=== PATIENT | female | born 1995 | race Caucasian/White ===

== ENCOUNTER 2023-01-04 17:29 | Emergency (ER) | payer OTHER, SELFPAY ==
[2023-01-04 17:41] VITALS: BP 150/109; PULSE 62; RESP 18; TEMP 36.6; O2SAT 100
--- NOTE | 2023-01-04 18:55 | ED.HA ---
HPI - Headache General Chief Complaint: Headache Stated Complaint: Pain to Left Side Face Time Seen by Provider: 01/04/23 18:40 Source: patient, family, RN notes reviewed and old records reviewed Mode of arrival: ambulatory Limitations: no limitations History of Present Illness HPI Narrative: 27-year-old female accompanied by significant other presents to [facility] with complaints of pain to her left side of face,left frontal head, and to her left neck, to her left ear, left eye for the past 2 days. Patient reports history of migraine headaches has never seen Neurology or been on any medications but Tylenol or ibuprofen for her headaches. Patient reports no fevers,some nausea,no vomiting, denies any numbness sensation to her face or neck or any sharp pain to her eye or photophobia. Face is symmetrical with no eye or mouth drooping noted. MD elicited complaint: headache and other (Left ear pain, left neck pain, left facial pain) Pertinent past history: migraines Onset (ago): day(s) (2) Location: left, frontal, facial, neck and other (ear and eye pain) Pain scale (0-10): 5 Quality & Timing: aching and dull Treatments prior to arrival: acetaminophen and ibuprofen Related Data Allergies Allergy/AdvReac Type Severity Reaction Status Date / Time No Known Allergies Allergy Verified 01/04/23 18:10 Review of Systems Review of Systems: CONSTITUTIONAL: Denies fever, chills, or sweats. EYES: Denies visual changes, redness, or discharge.states left eye discomfort ENT: Denies rhinorrhea, congestion,no sore throat, states left ear otalgia, left side of face pain and left neck pain CARDIOVASCULAR: Denies chest pain, palpitations, or edema. RESPIRATORY: Denies cough or dyspnea. GASTROINTESTINAL: Denies abdominal pain,some nausea, no vomiting, or diarrhea. GENITOURINARY: Denies dysuria or hematuria. SKIN: Denies rash or itching. MUSCULOSKELETAL: Denies back pain, joint pain, or myalgia. NEUROLOGIC: reports headache, no numbness, or weakness. PSYCHIATRIC: Denies anxiety or depression. All systems reviewed & are unremarkable except as noted in HPI and below PMFSH Past Medical History Medical History Hx of migraines Strep throat Surgical History Surgical History (Updated 01/05/23 @ 22:59 by Viry Martinez NP) Previous section Social History Social History (Updated 01/05/23 @ 23:00 by Viry Martinez NP) Smoking status: Never smoker Alcohol intake: current Alcohol use details: rare Substance use type: does not use Living arrangements: with family Gender identity (if verbalized by the patient): Female Comments At time of signature, agree with nursing past medical, surgical, social and family history. There is no relevant family history pertinent to the presenting complaint Exam Narrative: GENERAL: Well-appearing, well-nourished, and in no acute distress. HEAD: Normocephalic, atraumatic. EYES: PERRLA and EOMI. reports left eye pain denies any photophobia or sharp pain to her eye. ENT: Nares clear, no rhinorrhea or epistaxis. Mucous membranes moist.TM's normal, throat pink with no lesions or exudates, no acute swelling noted NECK: Supple.pain to left side of neck CHEST: Clear to auscultation. No respiratory distress.SAO2 100% on room air HEART: Regular rate and rhythm. No murmur heard. Normal peripheral pulses. ABDOMEN: Soft, nontender, nondistended, normal active bowel sounds. EXTREMITIES: Normal range of motion. No edema. SKIN: Warm, dry, no rash. NEURO: No focal deficits. Alert and oriented x3.face symmetrical, cranial nerves intact with no deficit noted.gait steady Course Course Emergency Course: Patient is aware of diagnosis, understands and agrees to treatment plan.? Anticipatory guidance given.? Patient agrees to follow-up as directed and is aware of reasons to seek care at the emergency department. Portions of this record may have b
== END 2023-01-04 19:05 | disposition home or self-care (01) ==
PROVIDERS: Emergency Provider Registered Nurse
DX: G43.909 Migraine, unspecified, not intractable, without status migrainosus (principal)
CPT/HCPCS: 87081; 87880; 99213; G0463

== ENCOUNTER 2024-02-04 17:16 | Emergency (ER) | payer SELFPAY ==
[2024-02-04 17:18] VITALS: BP 155/112; PULSE 80; RESP 18; TEMP 36.9; O2SAT 100
--- NOTE | 2024-02-04 18:02 | ED.GENADULT ---
HPI - General Adult General Chief complaint: Unspecified Stated complaint: blood pressure problem History of Present Illness HPI narrative: Patient presents with an elevated blood pressure reading and increased anxiety. Patient states she has no insurance at this time and does not wish to go the emergency room. Patient states she is in the process of getting a new job and hopefully will establish with a PCP when she has insurance. Patient denies any shortness of breath no chest pain no headache at present. No vision problems no signs or symptoms of hypertension. Patient states 1 year ago she had the same symptoms and was diagnosed with migraines but has not followed up with a neurologist. Patient denies any nausea no vomiting. Nontoxic looking patient in the room. Related Data Home Medications ?Medication ?Instructions ?Recorded ?Confirmed ?Last Taken ?Type No Home Medications 02/04/24 02/04/24 Unknown History Allergies Allergy/AdvReac Type Severity Reaction Status Date / Time Penicillins Allergy Severe Rash Verified 02/04/24 17:55 erythromycin base Allergy Unknown Unknown Verified 02/04/24 17:55 Review of Systems Review of Systems: CONSTITUTIONAL: Denies chills, or sweats. Reports fever and generalized body aches EYES: Denies visual changes, redness, or discharge. ENT: Denies otalgia. Reports nasal congestion runny nose and sore throat CARDIOVASCULAR: Denies chest pain, palpitations, or edema. RESPIRATORY: Denies dyspnea. Reports occasional cough GASTROINTESTINAL: Denies abdominal pain, nausea, vomiting, or diarrhea. GENITOURINARY: Denies dysuria or hematuria. SKIN: Denies rash or itching. MUSCULOSKELETAL: Denies back pain, joint pain, or myalgia. Reports generalized body aches NEUROLOGIC: Denies headache, numbness, or weakness. PSYCHIATRIC: Denies anxiety or depression. [facility] Past Medical History Medical History (Updated 02/04/24 @ 18:18 by SHEMAR Clayton) Hx of migraines Strep throat Surgical History Surgical History (Updated 06/26/23 @ 09:05 by Kelli Douglas MA) Previous section xs 2 Social History Social History (Updated 06/26/23 @ 09:05 by Kelli Douglas MA) Smoking status: Never smoker Alcohol intake: current Alcohol use details: rare Substance use: never Substance use type: does not use Do You Feel Safe in your Home?: Yes Lack of Transportation: No Lack of Food: Never True Current Housing: I Have Housing Concerned About Future Housing: No Difficulty Paying Gas/Electric Bills: No Difficulty Paying for Meds: No Currently Unemployed: No Education: High School Diploma/GED Difficulty w/ Childcare or Family Care: No Living arrangements: with family Occupation/Education: occupation Gender identity (if verbalized by the patient): Female Sexual Orientation (if Verbalized by the Patient): Straight or Heterosexual Exam Narrative: GENERAL: Well-appearing, well-nourished, and in no acute distress. HEAD: Normocephalic, atraumatic. EYES: PERRLA and EOMI. ENT: Nares clear, no rhinorrhea or epistaxis. Mucous membranes moist. NECK: Supple. CHEST: Clear to auscultation. No respiratory distress. HEART: Regular rate and rhythm. No murmur heard. Normal peripheral pulses. ABDOMEN: Soft, nontender, nondistended, normal active bowel sounds. EXTREMITIES: Normal range of motion. No edema. SKIN: Warm, dry, no rash. NEURO: No focal deficits. Alert and oriented x3. Normal neuro exam SPEECH IS CLEAR. NO LANGUAGE DEFICITS. CRANIAL NERVES: PUPILS EQUAL, ROUND, AND REACTIVE TO LIGHT. VISUAL MORENO FULL. EXTRA-OCULAR MOVEMENTS INTACT. NO NYSTAGMUS NOTED. FACIAL SENSATION INTACT TO LIGHT TOUCH. FACIAL MOVEMENT FULL AND SYMMETRIC. PALATE MIDLINE. TONGUE MIDLINE, MOVING EQUALLY IN BOTH DIRECTIONS. UVULA IS MIDLINE. SHOULDER SHRUG EQUAL ON BOTH SIDES. BILATERAL HAND GRASP 5/5. GAIT NORMAL. HEEL TO TOE AND TANDEM WALK NORMAL. FINGER TO NOSE NORMAL. NEG ROMBERG. Sandhya Coma Scale Eye Opening: Spontaneous 4 [place] Coma Scale Motor: Obeys Commands 6 [place] Coma Scale Verbal: Oriented 5 Sandhya Coma Scale Total 15 Course Course Level of Care: Express Care Visit Vital Signs Vital signs: Vital Signs Temperature 36.9 C 02/04/24 17:18 Pulse Rate 80 02/04/24 17:18 Respiratory Rate 18 02/04/24 17:18 Blood Pressure 155/112 H 02/04/24 17:18 Pulse Oximetry 100 02/04/24 17:18 Oxygen Delivery Room Air 02/04/24 17:18 Temperature 36.9 C 02/04/24 17:18 Pulse Rate 80 02/04/24 17:18 Respiratory Rate 18 02/04/24 17:18 Blood Pressure 155/112 H 02/04/24 17:18 Pulse Oximetry 100 02/04/24 17:18 Oxygen Delivery Room Air 02/04/24 17:18 Patient declined transfer to emergency room at this visit. will monitor blood pressure at home and will establish with PCP for EVAlUATION OF BLOOD PRESSURE. DR LI SALVAGE ENGINEERING TECHNICIAN PATIENT GIVEN INFORMATION AND INSTRUCTED TO CALL IN AM FOR FOLLOW UP APPOINTMENT. ENFORCED IF ANY NEW OR ANY S/S OF HYPERTENSION OCCUR GO TO EMERGENCY ROOM GOOD. Medical Decision Making Vital Signs Vital Signs: Vital Signs Temperature 36.9 C 02/04/24 17:18 Pulse Rate 80 02/04/24 17:18 Respiratory Rate 18 02/04/24 17:18 Blood Pressure 155/112 H 02/04/24 17:18 Pulse Oximetry 100 02/04/24 17:18 Oxygen Delivery Room Air 02/04/24 17:18 Temperature 36.9 C 02/04/24 17:18 Pulse Rate 80 02/04/24 17:18 Respiratory Rate 18 02/04/24 17:18 Blood Pressure 155/112 H 02/04/24 17:18 Pulse Oximetry 100 02/04/24 17:18 Oxygen Delivery Room Air 02/04/24 17:18 Please GOOD schedule a followup visit with your personal physician for further evaluation and treatment. Including recheck and discussion of your blood pressure. If your symptoms persist, change or worsen significantly before you can contact your personal physician then please, without delay, go to the emergency department for further evaluation Discussed with patient and significant other signs and symptoms to monitor for to keep a blood pressure diary, follow a low salt no added salt diet, reduce stress in life if possible will give list of primary care providers and follow-up with 1 in the next 1-2 days to establish care. Discussed red flags and when to go to ER. Discharge Plan Discharge Clinical Impression: Elevated blood pressure reading, Elevated blood pressure reading in office with diagnosis of hypertension Patient Disposition: Home, Self-Care Condition: Stable Additional Instructions: Keep a blood pressure diary at home Follow-up with primary care provider in the next 1-2 days we will furnish a list of providers taking new patients in the area Follow-up low-sodium low-fat diet If any new or worsening symptoms please go to ER immediately further evaluation treatment Patient Language: Syriac Prescriptions: No Action No Home Medications Follow-up/Referrals: PHYSICIAN,SALVAGE ENGINEERING TECHNICIAN [Primary Care Provider] - Chilango Li MD [Physician] -
--- OUTSIDE RECORDS SUMMARY | 2024-02-09 16:53 | XMS_ITS | Clinical Summary ---
Author Organization [facility] Address [facility] [place] [address] Care Team Providers Care Delphi Programmer Name Role Phone Dario Keenan MD Unavailable [phone] Marc Marin MD Primary Care Provider [phone] Allergies Active Allergy Reactions Criticality Noted Date Comments Amoxicillin Rash Medium 03/13/2020 Azithromycin Rash Medium 03/13/2020 Penicillins Rash Medium 03/13/2020 Medications fluconazole (DIFLUCAN) 150 mg tablet Take 1 tablet PO now and repeat in 3 days. 2 tablet 06/03/2021 Active rizatriptan (MAXALT) 10 mg tabletIndicatio ns:Migraine Take 1 tablet (10 mg total) by mouth once as needed for migraine May repeat in 2 hours if unresolved. Do not exceed 30 mg in 24 hours. 9 tablet 06/30/2023 06/30/19 25 Active Active Problems Problem Noted Date Diagnosed Date Hx of gestational hypertension 09/10/2018 Overview (09/10/2018): Patient with BP of 157/113 and 153/111 at time of ultrasound today. She reports elevated blood pressures that started 3 weeks ago and was seen in triage for BP 150/100s last week. 24 hour urine 09/08/18 was negative. She is asymptomatic and has no symptoms of severe preeclampsia. Given severely elevated diastolic BP today, recommend triage evaluation to rule out preeclampsia with severe features. I also recommend administering betamethasone. If she has further severe range blood pressures, would proceed with delivery given current GA>34 weeks. If mild blood pressures and otherwise normal labs, recommend weekly blood pressure check and labs with delivery no later than 37 weeks. Resolved Problems Problem Noted Date Diagnosed Date Resolved Date History of delivery 08/10/2020 10/30/2020 Anemia affecting in third trimester 07/28/1909/12/2020 Vitamin D deficiency 04/17/2020 021 Borderline IUGR and elevated UA Dopplers 09/10/2018 04/17/2020 Overview (09/10/2018): The estimated weight on today's ultrasound plots at the 10th percentile. We discussed that this is borderline growth restriction. The UA Doppler PI was elevated. - I counseled the patient regarding the differential diagnosis for IUGR including wrong dating, constitutional, viral, aneuploidy, congenital anomalies, and placental insufficiency. We discussed the increased risk for IUFD with IUGR fetus. I recommend twice weekly testing and weekly UA Doppler assessment. We also reviewed delivery no later than 37 weeks given gestational HTN and US findings today. hydronephrosis during , antepartum 08/08/2018 10/30/2020 Overview (06/26/2020): Mild left pyelctasis, otherwise normal anatomy US. Low risk for aneuploidy in otherwise ultrasonagraphically normal fetus. 3.9 and 4.3 mm. Recheck in third trimester. Supervision of high-risk pre gnancy, unspecified trimester 08/08/2018 04/17/2020 Overview (09/10/2018): Co-management with Dr Pearl Magallon. If discharged and remains , recommend weekly UA Dopplers and blood pressure checks. Delivery no later than 37 weeks. Immunizations Name Administration Dates Next Due Tdap 07/24/2020 Surgical History Surgery Date Site/Laterality Comments SECTION Medical History Medical History Date Comments No pertinent past medical history Family History Medical History Relation Name Comments Cancer Maternal Grandfather Relation Name Status Comments Maternal Grandfather Social History Tobacco Use Types Packs/Day Years Used Date Smoking Tobacco: Never Smokeless Tobacco: Never Alcohol Use Standard Drinks/Week Comments Not Currently 0 (1 standard drink = 0.6 oz pur e alcohol) AUDIT-C Answer Date Recorded Q1: How often do you have a drink containing alc ohol? Never 09/12/2020 Average Number of Drinks Not on file 021 Frequency of Binge Drinking Not on file 08/21 Personal Safety Answer Date Recorded Have you ever been in or are you currently in a harmful physical or emotional relationship or is someone making you feel afraid or unsafe? Denies 06/30/2023 Comments Unknown Sex and Gender Information Value Date Recorded Sex Assigned at Not on file Legal Sex Female 3:29 PM CDT Gender Identity Not on file Sexual Orientation Not on file Obstetrics History Para Term AB IAB SAB Ectopic Multiple Livin g Live Births 2 2 1 1 0 2 2 Date Outcome GA Total Labor Labor/2nd/3rd Weight Sex Type Anes PTL Wen A1 A5 Name Clin 9 34w 0d 1.899 kg (4 lb 3 oz) F CS-Un spec Spinal Livin g Complications:Pre eclampsia 2020 Term 37w 2d 0h 01m 0h 01m 2.857 kg (6 lb 4.8 oz) M CS-LT ranv Spinal N Livin g 8 9 WIASHLEE R,Raffy Winchester MD Delivery Location:This [facility] ([facility] PROCEDURE) Last Filed Vital Signs Vital Sign Reading Time Taken Comments Blood Pressure 152/111 06/30/2023 8:20 AM CDT Pulse 94 06/30/2023 8:20 AM CDT Temperature 36.7 ??C (98.1 ??F) 06/30/2023 4:56 AM CD T Respiratory Rate 16 06/30/2023 8:20 AM CDT Oxygen Saturation 100% 06/30/2023 8:20 AM CDT Inhaled Oxygen Concentration - - Weight 81.6 kg (180 lb) 06/30/2023 4:56 AM CDT Height 170.2 cm (5' 7 ) 06/30/2023 4:56 AM CDT Body Mass Index 28.19 06/30/2023 4:56 AM CDT Plan of Treatment Health Maintenance Due Date Last Done Comments Depression Screening 1997 Varicella Vaccines (1 of 2 - 13+ 2-dose series) 2010 HPV Vaccines (1 - 3-dose series) 2012 Regular Well Visit/Exam 18-64 07/02/2015 Cervical Cancer Screening 03/13/2021 03/13/2020 Influenza Vaccine (#1) 2023 DTaP/Tdap/Td Vaccine (7 - Td or Tdap) 07/24/2030 07/24/2020, 08/25/2018, 12/28/1998, Additional history exists Hepatitis C Screening Completed 04/16/2020 Pneumococcal vaccine <65 Aged Out No longer eligible based on patient's age to complete this topic Procedures Procedure Name Priority Date/Time Associated Diagnosis Comments HEPATITIS C ANTIBODY Routine 04/16/2020 1:25 PM GREEN CHAIN PULLER Encounter for supervision of other normal in first trimester PAP WITH REFLEX TO HIGH RISK HPV Routine 03/13/2020 4:24 PM GREEN CHAIN PULLER Encounter for supervision of other normal in first trimester from Last 3 Months or Most Recently Relevant to Health Maintenance Results * Hepatitis C antibody (04/16/2020 1:25 PM GREEN CHAIN PULLER) Hep C Ab Nonreactive Nonreactive [facility]) Comment: Interpretive Data Nonreactive: Antibodies to HCV not detected. Does NOT exclude the possibility of recent exposure to HCV. Equivocal: Equivocal for HCV antibodies. Supplemental molecular testing will be automatically performed to determine infection status in accordance with current CDC screening recommendations. ?? Reactive: Positive for HCV antibodies. ??This may represent current or past HCV infection. Supplemental molecular testing will be automatically performed to determine ??current infection status in accordance with current CDC screening recommendations. Interpretive data was last revised on 2019. Testing performed by: [facility], [address] [place] [address], [place]., [address] Blood specimen (specimen) 04/16/2020 1:25 PM GREEN CHAIN PULLER 04/17/2020 9:32 AM GREEN CHAIN PULLER us Mimi Yu NP LAB MICROBIOLOGY - GENERAL ORDER VANDANA Edited Result - Final [facility] ([place]) [address] [facility] Department [place] [address] * Pap with reflex to High Risk HPV (03/13/2020 4:24 PM GREEN CHAIN PULLER) Clinical indication Comment [facility] - 01 Comment:NEGATIVE FOR INTRAEP ITHELIAL LESION OR MALIGNANCY. Specimen adequacy: Comment [facility] - 01 Comment: Satisfactory for evaluation. ??Endocervical and/or squamous metaplastic cells (endocervical component) are present. Clinician provided ICD10 Comment [facility] - 01 Comment:Z34.81 Performed by Comment [facility] - 01 Comment:Cathleen Ramirez, Cyto technologist . . [facility] - 01 Note: Comment [facility] - 01 Comment: The Pap smear is a screening test designed to aid in the detection of premalignant and malignant conditions of the uterine cervix. ??It is not a diagnostic procedure and should not be used as the sole means of detecting cervical cancer. ??Both false-positive and false-negative reports do occur. Test methodology Comment [facility] - 01 Comment: This liquid based ThinPrep(R) pap test was screened with the use of an image guided system. . Comment [facility] - 01 Comment: The HPV DNA reflex criteria were not met with this specimen result therefore, no HPV testing was performed. Swab 03/13/2020 4:24 PM GREEN CHAIN PULLER 03/13/2020 Narrative [facility] - 03/17/2020 8:13 AM GREEN CHAIN PULLER Performed at: ??01 - [facility] [address] ??[id number] Pit Operator: Nasima Evans MD, Phone: ??[phone] Specimen Comment: [id number] Specimen Comment: No. of containers..01 ThinPrep Vial Mimi Yu NP LAB CYTOLOGY ORDERABLES Final Re sult [facility] - 01 from Last 3 Months or Most Recently Relevant to Health Maintenance Insurance [facility] CHOICE PLUS [facility] CHOICE PLUS [employer] COVENTRY HMO/POS Advance Directives For more information, please contact: [phone] * Full Code (Latest Code Status on File) Date Activated Date Inactivated Comments 09/12/2020 4:41 PM 09/15/2020 4:11 AM * Full Code Date Activated Date Inactivated Comments 09/12/2020 10:57 AM 09/12/2020 4:41 PM Full CPR in case of cardiopulmonary arrest Care Teams Delphi Programmer Relationship Specialty Start Date End Date Marc Marin MD [address] [place] [address] PCP - General Family Practice 06/30/23 Dario Keenan MD [address] [place] [address] Referring Physician Obstetrics and Gynecology 10/23/18
--- OUTSIDE RECORDS SUMMARY | 2024-02-09 16:53 | XMS_ITS | Encounter Summary ---
Author Organization [facility] Healthcare Address [address] [place] [address] Care Team Providers Care Oil Pumper Name Role Phone Dario Keenan MD Unavailable [phone] Marc Marin MD Primary Care Provider [phone] Reason for Visit * Reason Comments Migraine Encounter Details Date Type Department Care Team (Late st Contact Info) Description 06/30/2023 4:57 AM CDT - 06/30/2023 8:26 AM CDT Emergency [facility] Emergency Department [address] [place] [address] Mackenzie Chao MD [address] [facility] [place] [address] Other migraine without status migrainosus, not intractable (Primary Dx) Discharge Disposition: Discharge to home or self care Social History Tobacco Use Types Packs/Day Years [...] on file Sexual Orientation Not on file documented as of this encounter Last Filed Vital Signs Vital Sign Reading [...] Mass Index 28.19 06/30/2023 4:56 AM CDT documented in this encounter Discharge Instructions * Discharge Instructions* Mackenzie Chao MD - 06/30/2023 7:28 AM CDT Meds as prescribed. Follow-up with your doctor in 2-3 days. Return to the ER with worsening symptoms or with concerns. * Attachments The following attachments cannot be sent through Care Everywhere. * Headache, Migraine, Classic (Chinese) documented in this encounter Medications at Time of Discharge fluconazole (DIFLUCAN) 150 mg tablet Take 1 tablet PO now and repeat in 3 days. 2 tablet 06/03/2021 rizatriptan (MAXALT) 10 mg tabletIndication s:Migraine Take 1 tablet (10 mg total) by mouth once as needed for migraine May repeat in 2 hours if unresolved. Do not exceed 30 mg in 24 hours. 9 tablet 06/30/2023 06/29/2024 documented as of this encounter Ordered Prescriptions Prescription Sig Dispense Quantity Refills Last Filled Start Date End Date rizatriptan (MAXALT) 10 mg tabletIndications: Migraine Take 1 tablet (10 mg total) by mouth once as needed for migraine May repeat in 2 hours if unresolved. Do not exceed 30 mg in 24 hours. 9 tablet 06/30/2023 5 documented in this encounter Discharge Disposition Disposition Code Departure Means Destination Comment s Discharge to home or self care Other documented in this encounter ED Notes * Mackenzie Chao MD - 06/30/2023 6:25 AM CDT HPI Chief Complaint Patient presents with ??? Migraine HPI Patient History: This is a 27-year-old female with a history of migraines since age 15 who presentsmigraine typical of her usual headache since Monday. She states she takes Tylenol and ibuprofen and usually just rests and eventually goes away. This time it is not. He is over the right forehead and behind the right eye and throbbing. No neurologic deficits. Patient Active Problem List Diagnosis Date Noted ??? Hx of gestational hypertension 09/10/2018 Past Medical History: Diagnosis Date ??? No pertinent past medical history Past Surgical History: Procedure Laterality Date ??? SECTION Family History Problem Relation Age of Onset ??? Cancer Maternal Grandfather Social History Tobacco Use ??? Smoking status: Never ??? Smokeless tobacco: Never Substance and Sexual Activity ??? Alcohol use: Not Currently ??? Drug use: Not Currently ??? Sexual activity: Yes Partners: Male control/protection: None Social History Social History Narrative ??? Not on file Review of Systems Review of Systems Neurological: Positive for headaches. All other systems reviewed and are negative. Physical Exam ED Triage Vitals [06/30/23 0456] Temp Pulse Resp BP SpO2 36.7 ??C (98.1 ??F) 83 18 (!) 157/104 100 % Temp src Heart Rate Source Patient Position BP Location FiO2 (%) Temporal -- -- -- -- Height Height Method Weight Weight Method 1.702 m (5' 7 ) Stated 81.6 kg (180 lb) Stated Physical Exam Vitals and nursing note reviewed. Constitutional: General: She is not in acute distress. Appearance: She is not ill-appearing, toxic-appearing or diaphoretic. HENT: Head: Normocephalic. Right Ear: External ear normal. Left Ear: External ear normal. Nose: Nose normal. Mouth/Throat: Mouth: Mucous membranes are moist. Pharynx: Oropharynx is clear. Eyes: Extraocular Movements: Extraocular movements intact. Conjunctiva/sclera: Conjunctivae normal. Pupils: Pupils are equal, round, and reactive to light. Cardiovascular: Rate and Rhythm: Normal rate and regular rhythm. Pulses: Normal pulses. Heart sounds: Normal heart sounds. Pulmonary: Effort: Pulmonary effort is normal. Breath sounds: Normal breath sounds. Abdominal: General: Bowel sounds are normal. Palpations: Abdomen is soft. Tenderness: There is no abdominal tenderness. Musculoskeletal: General: Normal range of motion. Cervical back: Normal range of motion and neck supple. Skin: General: Skin is warm. Capillary Refill: Capillary refill takes less than 2 seconds. Neurological: General: No focal deficit present. Mental Status: She is alert and oriented to person, place, and time. Mental status is at baseline. Cranial Nerves: No cranial nerve deficit. Sensory: No sensory deficit. Motor: No weakness. Coordination: Coordination normal. Gait: Gait normal. Psychiatric: Mood and Affect: Mood normal. MDM Medical Decision Making This is a 27-year-old female with a history of migraines who presents migraine typical of her usualheadache since Monday. Differential includes migraine, tension migraine, other Risk Prescription drug management. ED Course as of 06/30/23813 Time: 06/30 719 Comment: Improving By: Mackenzie Chao MD Time: 06/29 813 Comment: Symptoms resolved. Patient feels well and is ready to go home. By: Mackenzie Chao MD Final diagnoses: None Mackenzie Chao MD 06/30/23814 * Carlo Adame RN - 06/30/2023 4:55 AM CDT Pt ambulatory to triage c/o a migraine and pain in her eyes since Monday. Pt reports having migraines since she was 14, but does not have any medication to take for it documented in this encounter Plan of Treatment Not on file documented as of this encounter Visit Diagnoses Diagnosis Other migraine without status migrainosus, not intractable- Primary documented in this encounter Administered Medications Inactive Administered Medications - up to 3 most recent administrations Medication Order MAR Action Action Date Dose Rate Site ketorolac (TORADOL) 30 mg/mL injection 30 mg 30 mg, intramuscular, Once, On Mon06/30/23 at 0637, For 1 dose, Indications: PainIndications:Pain Given 06/30/2023 6:49 AM CDT 30 mg Left Deltoid SUMAtriptan (IMITREX) injection 6 mg 6 mg, subcutaneous, Once, On Mon06/30/23 at 0637, For 1 dose Given 06/30/2023 6:48 AM CDT 6 mg Left Upper Arm documented in this encounter Active and Recently Administered Medications Times are shown in CDT. Scheduled Medication Order 06/28/2023 06/29/2023 06/30/2023 ketorolac (TORADOL) 30 mg/mL injection 30 mg (COMPLETED) 30 mg, intramuscular, Once, On Mon06/30/23 at 0637, For 1 dose, Indications: Pain 0649 (Given - Provid er: Garima Nielsen RN) SUMAtriptan (IMITREX) injection 6 mg (COMPLETED) 6 mg, subcutaneous, Once, On Mon06/30/23 at 0637, For 1 dose 0648 (Given - Provid er: Garima Nielsen RN) documented in this encounter Care Teams Oil Pumper Relationship Specialty Start Date End Date Marc Marin MD [address] [place] [address] PCP - General Family Practice 06/30/23 Dario Keenan MD [address] [place] [address] Referring Physician Obstetrics and Gynecology 10/23/18 documented as of this encounter
--- OUTSIDE RECORDS SUMMARY | 2024-02-09 16:53 | XMS_ITS | Encounter Summary ---
Author Organization [facility] Address [address] [place] [address] Care Team Providers Care Surface Mount Technology Operator Name Role Phone Dario Keenan MD Unavailable [phone] No, Physician Primary Care Provider [phone] Reason for Visit * Reason Onset Date Comments Intermittent FMLA 12/07/2020 Encounter Details Date Type Department Care Team (Late st Contact Info) Description 12/07/2020 [facility] [address] [place] [address] Tiff Cummings RN Intermittent FMLA Social History Tobacco Use Types Packs/Day Years [...] of Binge Drinking Not on file 08/21 Comments No Sex and Gender Information Value Date Recorded Sex Assigned at Not on file Legal Sex Female 3:29 PM CDT Gender Identity Not on file Sexual Orientation Not on file documented as of this encounter Miscellaneous Notes * Telephone Encounter - Tiff Cummings RN - 12/10/2020 10:15 AM CDT LMOM to let pt know it was approved. Enc to fax us the paperwork to be filled out. * Telephone Encounter - Elias Hurd MD - 12/09/2020 5:36 PM CDT Ok for FMLA for her frequent OB visits. * Telephone Encounter - Tiff Cummings RN - 12/07/2020 8:29 AM CDT Pt called today requesting JT to fill out intermittent FMLA paperwork so that she can be excused from work for appts. Pt has been having blood pressure checks. Pt also asking for intermittent FMLA to miss work to take her son to his doctor appts as well. Instructed pt that we usually don't issue that for the baby, she would need to contact her Project Planner. Please advise. Thanks! documented in this encounter Plan of Treatment Not on file documented as of this encounter Visit Diagnoses Not on filedocumented in this encounter Care Teams Surface Mount Technology Operator Relationship Specialty Start Date End Date No, Physician PCP - General 04/20/20 06/29/23 Dario Keenan MD [address] [place] [address] Referring Physician Obstetrics and Gynecology 10/23/18 documented as of this encounter
--- OUTSIDE RECORDS SUMMARY | 2024-02-09 16:53 | XMS_ITS | Encounter Summary ---
Author Organization [facility] Address [address] [place] [address] Care Team Providers Care Armor Senior Sergeant Name Role Phone Dario Keenan MD Unavailable [phone] No, Physician Primary Care Provider [phone] Reason for Visit * Reason Onset Date Comments Vaginal Itching 06/03/2021 Encounter Details Date Type Department Care Team (Late st Contact Info) Description 06/03/2021 Telephone [facility] [address] [place] [address] Tiff Cummings RN Vaginal Itching Social History Tobacco Use Types Packs/Day Years [...] on file documented as of this encounter Ordered Prescriptions Prescription Sig Dispense Quantity Refills Last Filled Start Date End Date fluconazole (DIFLUCAN) 150 mg tablet Take 1 tablet PO now and repeat in 3 days. 2 tablet 06/03/2021 documented in this encounter Miscellaneous Notes * Telephone Encounter - Tiff Cummings RN - 06/03/2021 1:53 PM CDT Pt called in today c/o vaginal itching. Diflucan erx'ed. Enc to call if symptoms persist. documented in this encounter Plan of Treatment Not on file documented as of this encounter Visit Diagnoses Not on filedocumented in this encounter Care Teams Armor Senior Sergeant Relationship Specialty Start Date End Date No, Physician PCP - General 04/20/20 06/29/23 Dario Keenan MD [address] [place], [place] [id number] Referring Physician Obstetrics and Gynecology 10/23/18 documented as of this encounter
--- OUTSIDE RECORDS SUMMARY | 2024-02-09 16:53 | XMS_ITS | Referral Summary ---
Author Organization [facility] Address [facility] [place] [address] Care Team Providers Care Senior Private Client Advisor Name Role Phone Dario Keenan MD Unavailable [phone] Marc Marin MD Primary Care Provider [phone] Allergies Active Allergy Reactions Criticality Noted Date [...] Name Administration Dates Next Due Tdap 07/24/2020 Social History Tobacco Use Types Packs/Day Years [...] on file Sexual Orientation Not on file Last Filed Vital Signs Vital Sign Reading [...] 06/30/2023 4:56 AM CDT Plan of Treatment Not on file Procedures Procedure Name Priority Date/Time Associated Diagnosis Comments HEPATITIS C ANTIBODY Routine 04/16/2020 1:25 PM COMMERCIAL LINES INSURANCE AGENT Encounter for supervision of other normal in first trimester PAP WITH REFLEX TO HIGH RISK HPV Routine 03/13/2020 4:24 PM COMMERCIAL LINES INSURANCE AGENT Encounter for supervision of other normal in first trimester from Last 3 Months or Most Recently Relevant to Health Maintenance Results * Hepatitis C antibody (04/16/2020 1:25 PM COMMERCIAL LINES INSURANCE AGENT) Hep C Ab Nonreactive Nonreactive DORI GAMA (ANTONY) Comment: Interpretive Data Nonreactive: Antibodies to HCV [...] last revised on 2019. Testing performed by: [facility], [address] [place] [address], [place]., [address] Blood specimen (specimen) 04/16/2020 1:25 PM COMMERCIAL LINES INSURANCE AGENT 04/17/2020 9:32 AM COMMERCIAL LINES INSURANCE AGENT us Mimi Yu NP LAB MICROBIOLOGY - GENERAL ORDER VANDANA Edited Result - Final DORI GAMA (POTH) [address] [facility] Department of Laboratories [place], [place] [id number] * Pap with reflex to High Risk HPV (03/13/2020 4:24 PM COMMERCIAL LINES INSURANCE AGENT) Clinical indication Comment [facility] - 01 Comment:NEGATIVE [...] testing was performed. Swab 03/13/2020 4:24 PM COMMERCIAL LINES INSURANCE AGENT 03/13/2020 Narrative [facility] - 03/17/2020 8:13 AM COMMERCIAL LINES INSURANCE AGENT Performed at: ??01 - [facility] [address] ??[id number] Drapery And Upholstery Estimator: Nasima Evans MD, Phone: ??[phone] Specimen Comment: [id number] Specimen Comment: No. of containers..01 ThinPrep Vial us Mimi Yu NP LAB CYTOLOGY ORDERABLES Final Re sult [facility] Organization Address City/State/ZIP Co de Phone Number [facility] - 01 from Last 3 Months or Most Recently Relevant to Health Maintenance Insurance [facility] CHOICE PLUS [facility] H[facility]/PPO Address: [address] [place] [address] [facility] Address: [address] [address] [place] [address] [employer] COVENTRY HMO/POS Advance Directives For more information, please contact: [phone] * Full Code (Latest Code Status on File) Date Activated Date Inactivated Comments 09/12/2020 4:41 PM 09/15/2020 4:11 AM * Full Code Date Activated Date Inactivated Comments 09/12/2020 10:57 AM 09/12/2020 4:41 PM Full CPR in case of cardiopulmonary arrest Care Teams Senior Private Client Advisor Relationship Specialty Start Date End Date Marc Marin MD [address] [place] [address] PCP - General Family Practice 06/30/23 Dario Keenan MD [address] [place] [address] Referring Physician Obstetrics and Gynecology 10/23/18
--- OUTSIDE RECORDS SUMMARY | 2024-02-09 16:53 | XMS_ITS | Encounter Summary ---
Author Organization [facility] Address [address] [address] Care Team Providers Care Dental Treatment Coordinator Name Role Phone Dario Keenan MD Unavailable [phone] No, Physician Primary Care Provider [phone] Reason for Visit * Reason Onset Date Comments Test Results 12/22/2020 Test Results 12/22/2020 negative COVID Encounter Details Date Type Department Care Team (Late st Contact Info) Description 12/22/2020 Telephone [facility] [place] [address] [place] [id number] Rachel Olivares RN Test Results; Test Results (negative COVID) Social History Tobacco Use Types Packs/Day Years [...] encounter Miscellaneous Notes * Telephone Encounter - Jake Cerna MA - 12/22/2020 5:25 PM CDT Patient has not had a known COVID exposure, and is not vaccinated. She is aware to self-isolate until sx improve and is fever free w/o use of antipyretics. Patient verbalized understanding. * Telephone Encounter - Rachel Olivares MA - 12/22/2020 4:34 PM CDT LM for pt to return call to clinic to make aware. * Telephone Encounter - Rachel Olivares MA - 12/22/2020 4:33 PM CDT ----- Message from Misty Umana NP sent at 12/22/2020 2:25 PM CDT ----- [facility] cc pool, please inform patient of negative throat culture report. Follow up with PCP if symptoms persist. documented in this encounter Plan of Treatment Not on file documented as of this encounter Visit Diagnoses Not on filedocumented in this encounter Care Teams Dental Treatment Coordinator Relationship Specialty Start Date End Date No, Physician PCP - General 04/20/20 06/29/23 Dario Keenan MD [address] [place], [place] [id number] Referring Physician Obstetrics and Gynecology 10/23/18 documented as of this encounter
--- OUTSIDE RECORDS SUMMARY | 2024-02-09 16:53 | XMS_ITS | Encounter Summary ---
Author Organization [facility] Healthcare Address [address] [place] [address] Care Team Providers Care Ict Help Desk Officer Name Role Phone Dario Keenan MD Unavailable [phone] No, Physician Primary Care Provider [phone] Encounter Details Date Type Department Care Team (Late st Contact Info) Description 12/21/2020 4:30 PM CDT Lab [address] [address] Acute nasopharyngitis Social History Tobacco Use Types Packs/Day Years [...] as of this encounter Miscellaneous Notes * Result Encounter Note - Jake Cerna MA - 12/22/2020 5:27 PM CDT Patient has not had a known COVID exposure, and is not vaccinated. She is aware to self-isolate until sx improve and is fever free w/o use of antipyretics. Patient verbalized understanding. * Result Encounter Note - Rachel Olivares MA - 12/22/2020 4:34 PM CDT LM for pt to return call to clinic to make aware. * Result Encounter Note - Rachel Olivares MA - 12/22/2020 4:34 PM CDT LM for pt to return call to clinic to make aware. documented in this encounter Plan of Treatment Not on file documented as of this encounter Procedures Procedure Name Priority Date/Time Associated Diagnosis Comments COVID-19 CORONAVIRUS RNA Routine 12/21/2020 10:45 AM CDT Acute nasopharyngitis THROAT CULTURE Routine 12/21/2020 10:45 AM CDT Acute nasopharyngitis documented in this encounter Results * Throat culture Throat Pharyngeal (12/21/2020 10:45 AM CDT) Report Final Report: No growth of pathogens. DORI CARLSON Comment:Testing performed by : [facility], [address] [place] [address] Throat (Pharyngeal) 12/21/2020 10:45 AM CDT 12/21/2020 7:50 PM CDT Narrative DORI CARLSON - 12/22/2020 2:20 PM CDT Testing performed by [facility] Microbiology Laboratory ([phone]). us Saji Zhao NP LAB MICROBIOLOGY - GENERAL ORDERABLES Final Result DORI CARLSON [address] Department of Laboratories [place], [place] [id number] * COVID-19 Coronavirus RNA Nasopharyngeal (12/21/2020 10:45 AM CDT) COVID-19 RNA Not Detected DORI Comment: Interpretive Data Synonyms for this test include: PCR and NAAT . ??Testing performed by the [facility] Molecular Infectious Disease Laboratory. The 2019-Novel Coronavirus Assay (COVID-19) Real Time RT-PCR assay is for in vitro diagnostic use under FDA emergency use authorization only. A negative RT-PCR result does not preclude infection with COVID-19 and should not be used as the sole basis for treatment or other patient management decisions. ??Additional sample types have been validated according to CLIA regulations. ?? Current Interpretive Data was last revised on March 26, 2020. Testing performed by: [facility], [address] [place] [address]., [address] Employeed in healthcare? No DORI Comment:Testing performed by : [facility], [address] [place] [address], [address] status? No DORI Comment:Testing performed by : [facility], [address] [place] [address], [address] Group care resident? No DORI Comment:Testing performed by : [facility], [address] [place] [address], [address] Hospitalized? No DORI Comment:Testing performed by : [facility], [address] [facility], [address] Is patient in ICU? No BANNERHAI Comment:Testing performed by : [facility], [address] [place] [address], [address] Symptomatic as defined by CDC? Yes DORI Comment:Testing performed by : [facility], [address] [place] [address], [address] Nasopharyngeal 12/21/2020 10 :45 AM CDT 12/22/2020 12:10 AM CDT Narrative DORI - 12/22/2020 2:57 PM CDT What is the reason for testing?->Symptoms of COVID-19 in low-risk group (batch) Date of Symptom Onset->12/14/20 us Saji Zhao ASSOCIATE DIRECTOR LAB MICROBIOLOGY - GENERAL ORDERABLES Final Result DORI [address] Department [place] [address] documented in this encounter Visit Diagnoses Diagnosis Acute nasopharyngitis Acute nasopharyngitis (common cold) documented in this encounter Care Teams Ict Help Desk Officer Relationship Specialty Start Date End Date No, Physician PCP - General 04/20/20 06/29/23 Dario Keenan MD [address] [place], [place] [id number] Referring Physician Obstetrics and Gynecology 10/23/18 documented as of this encounter
--- OUTSIDE RECORDS SUMMARY | 2024-02-09 16:53 | XMS_ITS | Encounter Summary ---
Author Organization [facility] Medical Group Address [address] [id number] Care Team Providers Care Staff Engineer Name Role Phone Dario Keenan MD Unavailable [phone] No, Physician Primary Care Provider [phone] Reason for Visit * Reason Comments COVID-19 EVALUATION c/o sore throat and cough that started yesterday. Headache and diminished taste and smell x1 week; not vaccinated Encounter Details Date Type Department Care Team (Late st Contact Info) Description 12/21/2020 10:30 AM CDT Office Visit [facility] [address] [place] [address] Saji Zhao, DAYANA [address] [place] [address] Acute nasopharyngitis Social History Tobacco Use Types [...] Sign Reading Time Taken Comments Blood Pressure 110/70 12/21/2020 10:40 AM CDT Pulse 77 12/21/2020 10:40 AM CDT Temperature 36.6 ??C (97.9 ??F) 12/21/2020 10:40 AM C DT Respiratory Rate 16 12/21/2020 10:40 AM CDT Oxygen Saturation 98% 12/21/2020 10:40 AM CDT Inhaled Oxygen Concentration - - Weight 81.6 kg (180 lb) 12/21/2020 10:40 AM CDT Height 170.2 cm (5' 7 ) 12/21/2020 10:40 AM CDT Body Mass Index 28.19 12/21/2020 10:40 AM CDT documented in this encounter Patient Instructions * Patient Instructions* Saji Zhao NP - 12/21/2020 10:30 AM CDT ?? Please start an ajei-cfr-gpamuxc antihistamine such as Claritin, Zyrtec or Mandie. If congestion occurs, you may ask your pharmacist for Claritin-D, Zyrtec-D or Mandie-D ?? Please monitor for signs of dehydration including decreased urine output, excessive fatigue, uncontrollable vomiting or diarrhea ?? Should fever occur, please use Tylenol for fever-senior information security architect ?? Please follow up with your primary care provider should symptoms persist Patient Education Cold Symptoms UNLOAD ASSOCIATE: Cold symptoms include sneezing, dry throat, a stuffy nose, headache, watery eyes, and a cough. Yourcough may be dry, or you may cough up mucus. You may also have muscle aches, joint pain, and tiredness. Rarely, you may have a fever. Cold symptoms occur from inflammation in your upper respiratory system caused by a virus. Most colds go away without treatment. Seek care immediately if: ?? You have increased tiredness and weakness. ?? You are unable to eat. ?? Your heart is beating much faster than usual for you. ?? You see white spots in the back of your throat and your neck is swollen and sore to the touch. ?? You see pinpoint or larger reddish-purple dots on your skin. Contact your healthcare provider if: ?? You have a fever higher than 102??F (38.9??C). ?? You have new or worsening shortness of breath. ?? You have thick nasal drainage for more than 2 days. ?? Your symptoms do not improve or get worse within 5 days. ?? You have questions or concerns about your condition or care. Treatment for cold symptoms may include NSAIDS to decrease muscle aches and fever. Cold medicines may also be given to decrease coughing, nasal stuffiness, sneezing, and a runny nose. Manage your cold symptoms: The following may help relieve cold symptoms, such as a dry throat and congestion: ?? Gargle with mouthwash or warm salt water as directed. ?? Suck on throat lozenges or hard candy. ?? Use a cold or warm vaporizer or humidifier to ease your breathing. ?? Rest for at least 2 days and then as needed to decrease tiredness and weakness. ?? Use petroleum based jelly around your nostrils to decrease irritation from blowing your nose. ?? Drink plenty of liquids. Liquids will help thin and loosen thick mucus so you can cough it up. Liquids will also keep you hydrated. Ask your healthcare provider which liquids are best for you and how much to drink each day. Prevent the spread of germs by washing your hands often. You can spread your cold germs to others for at least 3 days after your symptoms start. Do not share items, such as eating utensils. Cover your nose and mouth when you cough or sneeze using the crook of your elbow instead of your hands. Throwused tissues in the garbage. Do not smoke: Smoking may worsen your symptoms and increase the length of time you feel sick. Talk with your healthcare provider if you need help to stop smoking. Follow up with your healthcare provider as directed: Write down your questions so you remember to ask them during your visits. ?? 2017 [employer] Information is for End User's use only and may not be sold, redistributed or otherwise used for commercial purposes. All illustrations and images included in CareNotes?? are the copyrighted property of [employer] Inc[employer] or [employer]. The above information is an school health aide only. It is not intended as medical advice for individual conditions or treatments. Talk to your doctor, nurse or pharmacist before following any medical regimen to see if it is safe and effective for you. documented in this encounter Ordered Prescriptions Prescription Sig Dispense Quantity Refills Last Filled Start Date End Date predniSONE (DELTASONE) 20 mg tabletIndications:Acu te nasopharyngitis Take 2 tablets (40 mg) by mouth daily for 5 days 10 tablet 12/21/2020 1 documented in this encounter Progress Notes * Saji Zhao NP - 12/21/2020 10:30 AM CDT Images from the original note were not included. Subjective/Objective Patient: Jordyn Shields is a 25 y.o. female followed by No, Physician Chief Complaint Patient presents with ??? COVID-19 EVALUATION c/o sore throat and cough that started yesterday. Headache and diminished taste and smell x1 week; not vaccinated Jordyn Shields presents to clinic with c/o sore throat, cough, headache with diminished taste x 2days. States she can taste sweet and sour, but everything else 'is out.' Reports cough is improving, believes that cough was related to sore throat. History significant to COVID includes: n/a. Denies known exposure to COVID-19 or recent ill contacts. Denies COVID inoculation. Denies having previous history of COVID diagnosis. Attempted nothing OTC prior to arrival for symptom alleviation. Denies the following: GI symptoms: nausea, vomiting, diarrhea, abdominal pain Respiratory symptoms: shortness of breath, chest discomfort, rhinorrhea, congestion Generalized symptoms of infection: fever, excessive fatigue, generalized malaise, ear ache Review of Systems Constitutional: Negative for chills and fever. HENT: Positive for sore throat. Negative for congestion, ear pain, rhinorrhea, sinus pressure, sinus pain and sneezing. Eyes: Negative. Respiratory: Positive for cough (improving). Negative for chest tightness, shortness of breath and wheezing. Cardiovascular: Negative for chest pain. Gastrointestinal: Negative for constipation, diarrhea, nausea and vomiting. Endocrine: Negative. Genitourinary: Negative. Musculoskeletal: Negative for arthralgias and myalgias. Skin: Negative. Allergic/Immunologic: Negative for environmental allergies. Neurological: Positive for headaches. Hematological: Negative for adenopathy. Psychiatric/Behavioral: Negative. Physical Exam Vitals and nursing note reviewed. Constitutional: Appearance: Normal appearance. HENT: Head: Normocephalic and atraumatic. Right Ear: Tympanic membrane, ear canal and external ear normal. Left Ear: Tympanic membrane, ear canal and external ear normal. Nose: Nose normal. Mouth/Throat: Mouth: Mucous membranes are moist. Pharynx: Oropharynx is clear. Posterior oropharyngeal erythema present. Cardiovascular: Rate and Rhythm: Normal rate and regular rhythm. Heart sounds: Normal heart sounds. Pulmonary: Effort: Pulmonary effort is normal. Breath sounds: Normal breath sounds. Musculoskeletal: General: Normal range of motion. Cervical back: Neck supple. Skin: General: Skin is warm and dry. Neurological: General: No focal deficit present. Mental Status: She is alert and oriented to person, place, and time. Psychiatric: Mood and Affect: Mood normal. Behavior: Behavior normal. Vitals: 12/21/20 1040 BP: 110/70 BP Location: Right arm Patient Position: Sitting Pulse: 77 Resp: 16 Temp: 36.6 ??C (97.9 ??F) TempSrc: Oral SpO2: 98% Weight: 81.6 kg (180 lb) Height: 170.2 cm (5' 7 ) Social History Tobacco Use Smoking Status Never Smoker Smokeless Tobacco Never Used Assessment/Plan Diagnoses and all orders for this visit: Acute nasopharyngitis - POCT rapid strep A - COVID-19 POC - Throat culture Throat Pharyngeal; Future - predniSONE (DELTASONE) 20 mg tablet; Take 2 tablets (40 mg) by mouth daily for 5 days - COVID-19 Coronavirus RNA Nasopharyngeal; Future Orders Placed This Encounter Procedures ??? Throat culture Throat Pharyngeal Standing Status: Future Standing Expiration Date: 12/21/2021 ??? COVID-19 Coronavirus RNA Nasopharyngeal Standing Status: Future Standing Expiration Date: 12/21/2021 Order Specific Question: Is the patient experiencing any symptoms consistent with COVID (eg. Fever,cough, shortness of breath)? Answer: Yes Order Specific Question: What is the reason for testing? Answer: Symptoms of COVID-19 in low-risk group (batch) Order Specific Question: Date of Symptom Onset Answer: 12/14/2020 Order Specific Question: Is the patient hospitalized? Answer: No Order Specific Question: Is the patient admitted to an ICU? Answer: No Order Specific Question: Does the patient currently work in a healthcare facility with direct patient contact? Answer: No Order Specific Question: Is the patient a resident of a congregate care or living setting? Answer: No Order Specific Question: Is the patient ? Answer: No ??? POCT rapid strep A ??? COVID-19 POC Order Specific Question: Is the Patient experiencing symptoms consistent with COVID? Answer: Yes Order Specific Question: Date of Symptom Onset Answer: 12/14/2020 Order Specific Question: Is the patient hospitalized? Answer: No Order Specific Question: Is the patient admitted to an ICU? Answer: No Order Specific Question: Is this the first COVID-19 test for this patient? Answer: Yes Order Specific Question: Does the patient currently work in a healthcare facility with direct patient contact? Answer: No Order Specific Question: Is the patient a resident of a congregate care or living setting? Answer: No Order Specific Question: Is the patient ? Answer: No Results for orders placed or performed in visit on 12/21/20 POCT rapid strep A Result Value Ref Range Rapid Strep A, POC Negative COVID-19 POC Result Value Ref Range COVID-19 Ag POC (BD Veritor) Presumptive Negative Presumptive Negative, Invalid # acute pharyngitis --ddx: likely 2/2 environmental allergies v streptococcal bacteria --start prednisone --consider tessalon if pharyngitis c/b cough --salt water gargles --antihistamine wwo decongestant pending symptoms --tylenol/motrin for pain/fever --diet as tolerated --ED presentation with one or more of the following symptoms: fever uncontrolled with antipyretics,shortness of breath, chest discomfort, uncontrolled n/v/d --f/u with PCP after completion of abx if symptoms persist Patient Instructions: ?? Please start an iypr-sdz-yqkrrbq antihistamine such as Claritin, Zyrtec or Mandie. If congestion occurs, you may ask your pharmacist for Claritin-D, Zyrtec-D or Mandie-D ?? Please monitor for signs of dehydration including decreased urine output, excessive fatigue, uncontrollable vomiting or diarrhea ?? Should fever occur, please use Tylenol for fever-senior information security architect ?? Please follow up with your primary care provider should symptoms persist Brief: Treatment plan including expectations, follow up, and return precautions discussed with patient/parent, verbalizes understanding. Medication dosage, use, and potential adverse reactions discussed with patient/parent. Advised to follow up with PCP if symptoms do not resolve as expected or sooner if condition worsens. Signs/symptoms warranting ER evaluation reviewed. Patient and/or guardian was given an opportunity to ask questions, questions answered. ??? Patient was wearing the following PPE: mask. ??? Provider wearing the following PPE: mask, gown, gloves, face shield. Saji Zhao NP Cosigned by Eulogio Saravia MD at 01/06/2021 7:58 AM FRAME BUILDER E BUILDER documented in this encounter Plan of Treatment Not on file documented as of this encounter Procedures Procedure Name Priority Date/Time Associated Diagnosis Comments COVID-19 POC Routine 12/21/2020 11:08 AM CDT Acute nasopharyngitis POCT RAPID STREP Routine 12/21/2020 10:5 8 AM CDT Acute nasopharyngitis documented in this encounter Results * COVID-19 POC (12/21/2020 11:08 AM CDT) COVID-19 Ag POC (BD Veritor) Presumptive Negative Presumptive Negative, Invalid [facility] Nasal 12/21/2020 11:0 8 AM CDT us Saij Zhao NP POINT OF CARE TEST ORDERABL ES Final Result [facility] [employer] [place] [address] * POCT rapid strep A (12/21/2020 10:58 AM CDT) Rapid Strep A, POC Negative Swab 12/21/2020 10:5 8 AM CDT Saji Zhao INVESTIGATIVE WRITER POINT OF CARE TEST ORDERABL ES Final Result * COVID-19 Coronavirus RNA Nasopharyngeal (12/21/2020 10:45 AM CDT) Pathologist [facility] COVID-19 RNA Not Detected CERNER Comment: Interpretive Data Synonyms for this test include: PCR and NAAT . ??Testing performed by the [facility] Molecular Infectious Disease Laboratory. The 2018-Novel Coronavirus Assay (COVID-19) Real Time RT-PCR assay [...] on March 26, 2020. Testing performed by: [facility], [address] [place] [address]., [id number] Employeed in healthcare? No CERNER Comment:Testing performed by : [facility], [address] [place] [address]., [id number] status? No CERNER CH Comment:Testing performed by : [facility], [address] [place] [address], [place]., [address] Group care resident? No CERNER CH Comment:Testing performed by : [facility], [address] [place] [address]., [id number] Hospitalized? No CERNER CH Comment:Testing performed by : [facility], [address] [place] [address]., [id number] Is patient in ICU? No CERNER CH Comment:Testing performed by : [facility], [address] [place] [address]., [id number] Symptomatic as defined by CDC? Yes CERNER CH Comment:Testing performed by : [facility], [address] [place]., [address] Nasopharyngeal 12/21/2020 10 :45 AM CDT 12/22/2020 12:10 AM CDT Narrative DORI - 12/22/2020 2:57 PM CDT What is the reason for testing?->Symptoms of COVID-19 in low-risk group (batch) Date of Symptom Onset->12/14/20 Saji Zhao NP LAB MICROBIOLOGY - GENERAL ORDERABLES Final Result Performing Organization Address City/[facility] Co de Phone Number DORI [address] [place] [address] * Throat culture Throat Pharyngeal (12/21/2020 10:45 AM CDT) Report Final Report: No growth of pathogens. DORI Comment:Testing performed by : [facility], [address] [place]., [address] Throat (Pharyngeal) 12/21/2020 10:45 AM CDT 12/21/2020 7:50 PM CDT Narrative DORI - 12/22/2020 2:20 PM CDT Testing performed by [facility] Microbiology Laboratory ([phone]). Saji Zhao NP LAB MICROBIOLOGY - GENERAL ORDERABLES Final Result Performing Organization Address City/[facility] Co de Phone Number DORI [address] [place] [place] [address] documented in this encounter Visit Diagnoses Diagnosis Acute nasopharyngitis Acute nasopharyngitis (common cold) Acute nasopharyngitis Acute nasopharyngitis (common cold) documented in this encounter Additional Health Concerns Infection Onset Date Last Indicated Resolved Time COVID: Suspected 12/21/2020 12/21/2020 12/21/2020 11:09 AM CDT documented as of this encounter Care Teams Staff Engineer Relationship Specialty Start Date End Date No, Physician PCP - General 04/20/20 06/29/23 Dario Keenan MD [facility] [place] [address] [place] [address] Referring Physician Obstetrics and Gynecology 10/23/18 documented as of this encounter
--- OUTSIDE RECORDS SUMMARY | 2024-02-09 16:53 | XMS_ITS | Encounter Summary ---
Author Organization [facility] Medical Group Address [address] [place] [address] Care Team Providers Care Pe Electrical Engineer Name Role Phone Dario Keenan MD Unavailable [phone] No, Physician Primary Care Provider [phone] Reason for Visit * Reason Onset Date Comments First period since starting OCP. 7 months PP 05/2021 Encounter Details Date Type Department Care Team (Late st Contact Info) Description 03/26/2021 Telephone [facility] [address] [place] [address] Lauryn Chaves MA First period since starting OCP. 7 months PP Social History Tobacco Use Types Packs/Day Years [...] Telephone Encounter - Tiff Cummings RN - 04/07/2021 10:32 AM FIELD OPERATIONS SUPERVISOR Pt called back. She is doing much better. Enc to monitor and call if it happens again. D OPERATIONS SUPERVISOR * Telephone Encounter - Tiff Cummings RN - 04/07/2021 10:23 AM FIELD OPERATIONS SUPERVISOR LMOM for pt to call office. D OPERATIONS SUPERVISOR * Telephone Encounter - Elias Hurd MD - 04/06/2021 5:21 PM FIELD OPERATIONS SUPERVISOR Check on progress. Was she on an antibiotic etc... D OPERATIONS SUPERVISOR * Telephone Encounter - Lauryn Chaves MA - 03/26/2021 8:49 AM CST Patient calling 7 months stating she started Loestin OCP in October and has not had a period since starting. Cycles were regular before. She just started a period on Monday03-24-21 andis bleeding pretty heavily. She states she is going through a tampon every 30-45 minutes. I advisedpatient to switch to using pads to monitor bleeding and call me with update in the next few hours. P atient understanding. D OPERATIONS SUPERVISOR documented in this encounter Plan of Treatment Not on file documented as of this encounter Visit Diagnoses Not on filedocumented in this encounter Care Teams Pe Electrical Engineer Relationship Specialty Start Date End Date No, Physician PCP - General 04/20/20 06/29/23 Dario Keenan MD [address] [place] [address] Referring Physician Obstetrics and Gynecology 10/23/18 documented as of this encounter
--- OUTSIDE RECORDS SUMMARY | 2024-02-09 16:53 | XMS_ITS | Encounter Summary ---
Author Organization [facility] Medical Group Address [address] [place] [address] Care Team Providers Care Commissioner Of Officials Name Role Phone Dario Keenan MD Unavailable [phone] No, Physician Primary Care Provider [phone] Reason for Visit * Reason Onset Date Comments Irregular Bleeding 04/09/2021 Encounter Details Date Type Department Care Team (Late st Contact Info) Description 04/09/2021 Telephone [facility] [address] [place] [address] Tiff Cummings RN Irregular Bleeding Social History Tobacco Use Types Packs/Day Years [...] encounter Miscellaneous Notes * Telephone Encounter - Elias Hurd MD - 04/10/2021 2:57 PM INTERNAL REVIEW AND AUDIT COMPLIANCE I left message on patient phone to continue OC on time. Unclear why wasn't having a cycle followed by heavy cycle. BTB this month ok after heavy cycle. [facility] and B[facility] will resolve next pack. Call next month if not better. RNAL REVIEW AND AUDIT COMPLIANCE * Telephone Encounter - Tiff Cummings RN - 04/09/2021 9:26 AM INTERNAL REVIEW AND AUDIT COMPLIANCE Pt called on 03-26-21 c/o menorrhagia. Pt had started her normal cycle on 03-24-21 through 03-27-21. Pt is currently on her 5th or 6th pack of Loestrin and has never had a heavy cycle. I spoke with her on 04-07-21 and she was doing much better, however, she started bleeding again and now in the middle of her pack. Pt has never had BTB or missed any pills. Please advise. Thanks! RNAL REVIEW AND AUDIT COMPLIANCE documented in this encounter Plan of Treatment Not on file documented as of this encounter Visit Diagnoses Not on filedocumented in this encounter Care Teams Commissioner Of Officials Relationship Specialty Start Date End Date No, Physician PCP - General 04/20/20 06/29/23 Dario Keenan MD [address] [place] [address] Referring Physician Obstetrics and Gynecology 10/23/18 documented as of this encounter
--- OUTSIDE RECORDS SUMMARY | 2024-02-09 16:54 | XMS_ITS | Encounter Summary ---
Author Organization [facility] Healthcare Address [address] [place] [address] Care Team Providers Care Varnish Blender Name Role Phone Dario Keenan MD Unavailable [phone], Physician Primary Care Provider [phone] Encounter Details Date Type Department Care Team (Latest Contact Info) Description 08/08/2020 10:17 AM CDT - 08/08/2020 11:20 AM CDT Hospital Encounter [facility] [address] [place] [address] Elias Hurd MD [address] [place] [address] [place] [address] Discharge Disposition: Discharge to home or self care Social History Tobacco Use Types Packs/Day Years Used Date Smoking Tobacco: Never Smokeless Tobacco: Never Alcohol Use Standard Drinks/Week Comments Not Currently 0 (1 standard drink = 0.6 oz pur e alcohol) Comments Yes Sex and Gender Information Value Date Recorded Sex Assigned at Not on file Legal Sex Female 3:29 PM CDT Gender Identity Not on file Sexual Orientation Not on file documented as of this encounter Last Filed Vital Signs Vital Sign Reading Time Taken Comments Blood Pressure 119/69 08/08/2020 11:17 AM CDT Pulse 82 08/08/2020 11:17 AM CDT Temperature 37.1 ??C (98.8 ??F) 08/08/2020 10:30 AM C DT Respiratory Rate - - Oxygen Saturation - - Inhaled Oxygen Concentration - - Weight - - Height - - Body Mass Index - - documented in this encounter Discharge Diagnoses Diagnosis Encounter for supervision of normal , unspecified, unspecified trimester - ENCOUNTER FOR SUPERVISION OF NORMAL , UNSPECIFIED, UNSPECIFIED TRIMESTER documented in this encounter Medications at Time of Discharge aspirin 81 mg enteric coated tablet Take 1 tablet (81 mg total) by mouth daily 30 tablet 4 04/17/2020 1 cholecalciferol (VITAMIN D-3) 5,000 unit capsule Take one capsule daily with food. 30 capsule 11 04/17/2020 1 docusate sodium (COLACE) 100 mg capsuleIndicatio ns:constipation Take 1 capsule (100 mg total) by mouth 2 (two) times a day 30 capsule 2 07/27/2020 1 ferrous sulfate 325 mg (65 mg of elemental iron) tabletIndication s:Iron Deficiency Anemia Take 1 tablet (325 mg total) by mouth daily with breakfast 30 tablet 2 07/27/2020 1 vit 63-[id number]-mvhnz-dh a 27mg iron- 800 mcg-250 mg capsule Take by mouth 1 documented as of this encounter Discharge Disposition Disposition Code Departure Means Destination Discharge to home or self care documented in this encounter Nursing Notes * Nury Michelle RN - 08/08/2020 11:20 AM CDT Pt came to OB department from work. 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 Pt states she was fine when she went to work this am at 0600, but noticed swelling in her hands and feet at 0730 and started to feel dizzy. She tried eating something for breakfast but it did not help and as the morning went on she became more and more dizzy. VSS. Pt reports feeling betterwithin 10 minutes after ice pack placed on back of neck and pt drinking cold water. Discharged ambulatory with instructions to return to OB for any OB related symptoms such as contractions, ROM, bleeding, or decreased movement along with any hypertension symptoms such as headache, dizziness, b lurred vision, epigastric pain and/ or right upper quadrant pain. Pt voiced understanding. Note given for pt to rest in the cool air until she can be seen by Dr. Hurd on Monday. documented in this encounter Plan of Treatment Not on file documented as of this encounter Visit Diagnoses Not on filedocumented in this encounter Care Teams Varnish Blender Relationship Specialty Start Date End Date No, Physician PCP - General 04/20/20 06/29/23 Dario Keenan MD [address] [place] [address] Referring Physician Obstetrics and Gynecology 10/23/18 documented as of this encounter
--- OUTSIDE RECORDS SUMMARY | 2024-02-09 16:54 | XMS_ITS | Encounter Summary ---
Author Organization [facility] Medical Group Address [address] [place] [address] Care Team Providers Care Switchboard Operator Helper Name Role Phone Dario Keenan MD Unavailable [phone] No, Physician Primary Care Provider [phone] Reason for Visit * Reason Comments Routine Visit Encounter Details Date Type Department Care Team (Late st Contact Info) Description 08/17/2020 9:45 AM CDT Routine [facility] [address] [place] [address] [address] [place] [id number] Elias Hurd MD [address] [place] [address] [address] [place] [address] Encounter for supervision of other normal in third trimester (Primary Dx); 33 weeks gestation of Social History Tobacco Use Types Packs/Day Years [...] Sign Reading Time Taken Comments Blood Pressure 124/82 08/17/2020 9:01 AM CDT Pulse - - Temperature - - Respiratory Rate - - Oxygen Saturation - - Inhaled Oxygen Concentration - - Weight 89.4 kg (197 lb) 08/17/2020 9:01 AM CDT Height 170.2 cm (5' 7 ) 08/17/2020 9:01 AM CDT Body Mass Index 30.85 08/17/2020 9:01 AM CDT documented in this encounter Progress Notes * Elias Hurd MD - 08/17/2020 9:45 AM CDT No c/os. S=D. FARNAZ sono today and to check kidneys. PTL instructions. Continue ASA 81 mg until 37 wks. documented in this encounter Plan of Treatment Not on file documented as of this encounter Procedures Procedure Name Priority Date/Time Associated Diagnosis Comments POCT URINALYSIS DIPSTICK Routine 08/17/2020 9:06 AM CDT Encounter for supervision of other normal in third trimester 33 weeks gestation of documented in this encounter Results * POCT urinalysis dipstick (08/17/2020 9:06 AM CDT) Glucose, ur, POC Negative Negative mg/dL Protein, ur, POC Negative Negative Lot Number [id number] Urine 08/17/2020 9:06 AM CDT us Elias Hurd MD POINT OF CARE TEST ORDERAB LES Final Result documented in this encounter Visit Diagnoses Diagnosis Encounter for supervision of other normal in third trimester- Primary 33 weeks gestation of documented in this encounter Care Teams Switchboard Operator Helper Relationship Specialty Start Date End Date No, Physician PCP - General 04/20/20 06/29/23 Dario Keenan MD [address] [place] [address] Referring Physician Obstetrics and Gynecology 10/23/18 documented as of this encounter
--- OUTSIDE RECORDS SUMMARY | 2024-02-09 16:54 | XMS_ITS | Encounter Summary ---
Author Organization [facility] Medical Group Address [address] [place] [address] Care Team Providers Care Is Consultant Name Role Phone Dario Keenan MD Unavailable [phone], Physician Primary Care Provider [phone] Reason for Visit * Reason Onset Date Comments Anemia 07/27/2020 Encounter Details Date Type Department Care Team (Late st Contact Info) Description 07/27/2020 Telephone [facility] [address] [facility] [address] [place] [id number] Tiff Cummings RN Anemia Social History Tobacco Use Types Packs/Day Years [...] Refills Last Filled Start Date End Date docusate sodium (COLACE) 100 mg capsuleIndications :constipation Take 1 capsule (100 mg total) by mouth 2 (two) times a day 30 capsule 2 07/27/2020 1 ferrous sulfate 325 mg (65 mg of elemental iron) tabletIndications: Iron Deficiency Anemia Take 1 tablet (325 mg total) by mouth daily with breakfast 30 tablet 2 07/27/2020 1 documented in this encounter Miscellaneous Notes * Telephone Encounter - Tiff Cummings RN - 07/27/2020 9:30 AM CDT LMOM (OK per HIPAA) to let pt know. Ferrous Sulfate and Colace erx'ed. Enc to call back with any questions. * Telephone Encounter - Tiff Cummings RN - 07/27/2020 9:28 AM CDT ----- Message from Elias Hurd MD sent at 07/26/2020 4:00 PM CDT ----- Please call patient with results. Recommend iron daily. Also, continue vit. D with food. documented in this encounter Plan of Treatment Not on file documented as of this encounter Visit Diagnoses Not on filedocumented in this encounter Care Teams Is Consultant Relationship Specialty Start Date End Date No, Physician PCP - General 04/20/20 06/29/23 Dario Keenan MD [address] [place] [address] Referring Physician Obstetrics and Gynecology 10/23/18 documented as of this encounter
--- OUTSIDE RECORDS SUMMARY | 2024-02-09 16:54 | XMS_ITS | Encounter Summary ---
Author Organization [facility] Medical Group Address [address] [place] [address] Care Team Providers Care Terrazzo Roller Name Role Phone Dario Keenan MD Unavailable [phone] No, Physician Primary Care Provider [phone] Reason for Visit * Reason Comments Follow-up Encounter Details Date Type Department Care Team (Late st Contact Info) Description 10/30/2020 9:45 AM CDT Office Visit [facility] [address] [place] [address] [address] [place] [id number] Elias Hurd MD [address] [place] [address] [address] [place] [address] Encounter for visit (Primary Dx) Social History Tobacco Use Types Packs/Day Years [...] Sign Reading Time Taken Comments Blood Pressure 130/80 10/30/2020 9:57 AM CDT Pulse - - Temperature - - Respiratory Rate - - Oxygen Saturation - - Inhaled Oxygen Concentration - - Weight 80.7 kg (178 lb) 10/30/2020 9:43 AM CDT Height 170.2 cm (5' 7 ) 10/30/2020 9:43 AM CDT Body Mass Index 27.88 10/30/2020 9:43 AM CDT documented in this encounter Ordered Prescriptions Prescription Sig Dispense Quantity Refills Last Filled Start Date End Date norethindrone-e.es tradioL-iron (LOESTIN 24 FE) 1 mg-20 mcg (24)/75 mg (4) per tablet Take 1 tablet by mouth daily 84 tablet 3 10/30/2020 10/30/2021 documented in this encounter Progress Notes * Elias Hurd MD - 10/30/2020 9:45 AM CDT Note Subjective: Jordyn Shields is a 25 y.o. year old female who presents 6 weeks s/p repeat section. Her baby is doing well. She scored a 0 on the EPDS. Patient is formula feeding. Contraceptive options discussed. Patient desires oral contraceptive pill for contraception. No LMP recorded. Current Outpatient Medications: ??? cholecalciferol (VITAMIN D-3) 5,000 unit capsule, Take one capsule daily with food. (Patient not taking: Reported on 10/30/2020), Disp: 30 capsule, Rfl: 11 ??? norethindrone-e.estradioL-iron (LOESTIN 24 FE) 1 mg-20 mcg (24)/75 mg (4) per tablet, Take 1 tablet by mouth daily, Disp: 84 tablet, Rfl: 3 ??? vit-iron fum-folic ac 27 mg iron- 0.8 mg tablet, Take 1 tablet by mouth daily (Patientnot taking: Reported on 10/30/2020), Disp: , Rfl: Allergies Allergen Reactions ??? Amoxicillin Rash ??? Azithromycin Rash ??? Penicillins Rash Review of Systems Objective: BP 130/80 (BP Location: Right arm) Ht 170.2 cm (5' 7 ) Wt 178 lb (80.7 kg) No BMI 27.88 kg/m?? Physical Exam: General: Pleasant female in no acute distress. HEENT: WNL Abdomen: soft, nontender. Incision is healing well. Pelvic Exam: Deferred. Assessment and Plan: Diagnoses and all orders for this visit: Encounter for visit (Primary) Comments: Doing well. Other orders - norethindrone-e.estradioL-iron (LOESTIN 24 FE) 1 mg-20 mcg (24)/75 mg (4) per tablet; Take 1 tablet by mouth daily Use back up method first month and with abx. BSE and exercise encouraged. May resume normal activities. Return in about 6 weeks (around 12/11/2020) for BP check on OCs and then 6 months for annual exam.. Elias Hurd MD 10/30/2020 JMT documented in this encounter Plan of Treatment Not on file documented as of this encounter Visit Diagnoses Diagnosis Encounter for visit- Primary documented in this encounter Care Teams Terrazzo Roller Relationship Specialty Start Date End Date No, Physician PCP - General 04/20/20 06/29/23 Dario Keenan MD [address] [place] [address] Referring Physician Obstetrics and Gynecology 10/23/18 documented as of this encounter
--- OUTSIDE RECORDS SUMMARY | 2024-02-09 16:54 | XMS_ITS | Encounter Summary ---
Author Organization [facility] Healthcare Address [address] [place] [address] Care Team Providers Care Salesperson Florist Supplies Name Role Phone Dario Keenan MD Unavailable [phone] No, Physician Primary Care Provider [phone] Reason for Visit * Reason Comments Hypertension sent from office Encounter Details Date Type Department Care Team (Latest Contact Info) Description 09/11/2020 4:34 PM CDT - 09/11/2020 8:30 PM CDT Hospital Encounter [facility] [address] [place] [address] Elias Hurd MD [address] [place] [address] Hx of gestational hypertension (Primary Dx) Discharge Disposition: Discharge to home [...] Binge Drinking Not on file 08/21 Comments Yes Sex and Gender Information Value Date Recorded Sex Assigned at Not on file Legal Sex Female 3:29 PM CDT Gender Identity Not on file Sexual Orientation Not on file documented as of this encounter Last Filed Vital Signs Vital Sign Reading Time Taken Comments Blood Pressure 144/97 09/11/2020 7:16 PM CDT Pulse 69 09/11/2020 7:16 PM CDT Temperature 36.8 ??C (98.3 ??F) 09/11/2020 4:55 PM CD T Respiratory Rate - - Oxygen Saturation - - Inhaled Oxygen Concentration - - Weight - - Height - - Body Mass Index - - documented in this encounter Discharge Diagnoses Diagnosis Encounter for supervision of other normal , unspecified trimester - ENCOUNTER FOR SUPERVISION OF OTHER NORMAL , UNSPECIFIED TRIMESTER Weeks of gestation of not specified - WEEKS OF GESTATION OF NOT SPECIFIED documented in this encounter Discharge Instructions * Discharge Instructions* Joy Huerta RN - 09/11/2020 8:17 PM CDT Images from the original note were not included. Hypertension During WHAT YOU NEED TO KNOW: Hypertension is high blood pressure (BP). Your BP is the force of your blood moving against the garcia of your arteries. Normal BP is less than 120/80. Hypertension in is defined as a BP of 140/90 or greater. It is important to get screened and treated for hypertension during . This can prevent problems with you or your baby. Hypertension during can be defined as any of the following: ?? Chronic hypertension means you have high BP before week 20 of your . Hypertension may have been diagnosed before you became . ?? Gestational hypertension means you develop high BP between week 20 and 37 of your . It may also develop after week 37 of your . ?? Preeclampsia is a condition that can develop during week 20 of your , or later. Your BPmay be 160/100 or higher. You may also have protein in your urine. Preeclampsia can cause mild to life-threatening health problems for you and your unborn baby. You are at risk for developing preeclampsia if you have chronic or gestational hypertension. DISCHARGE INSTRUCTIONS: Call 911 or have someone else call for any of the following: ?? You have any of the following signs of a heart attack: ?? Squeezing, pressure, or pain in your chest that lasts longer than 5 minutes or returns ?? Discomfort or pain in your back, neck, jaw, stomach, or arm ?? Trouble breathing ?? Nausea or vomiting ?? Lightheadedness or a sudden cold sweat, especially with chest pain or trouble breathing ?? You have a seizure. ?? You faint or lose consciousness. Seek care immediately if: ?? You have a severe headache or vision loss. ?? You have weakness in an arm or leg. ?? You have bleeding from your vagina. ?? You have fluid leaking from your vagina that does not stop. ?? You feel a gush of fluid from your vagina. ?? You have contractions that happen every 5 minutes or sooner, and last for more than 60 seconds. ?? You feel a change in your baby's movement, or you feel fewer than 6 to 10 movements in an hour. ?? You urinate less than usual or stop urinating. ?? You have severe abdominal pain with nausea and vomiting. ?? You have new or increased swelling in your face or hands. Contact your healthcare provider if: ?? You have a fever. ?? You have new or increased swelling in your legs or feet. ?? You have nausea or are vomiting. ?? Your BP is higher than your healthcare provider said it should be. ?? You have questions or concerns about your condition or care. Medicines: ?? Blood pressure medicine may be given to lower your BP. Control of your BP will help prevent problems with your baby's growth or labor. ?? Take your medicine as directed. Contact your healthcare provider if you think your medicine is not helping or if you have side effects. Tell him of her if you are allergic to any medicine. Keep a list of the medicines, vitamins, and herbs you take. Include the amounts, and when and why you take them. Bring the list or the pill bottles to follow-up visits. Carry your medicine list with you in case of an emergency. Self-care: ?? Check your BP at home. Sit and rest for 5 minutes before you take your BP. Extend your arm and support it on a flat surface. Your arm should be at the same level as your heart. Follow the directions that came with your BP monitor. Take your BP at least twice a day at the same times each day, such as morning and evening. Take at least 2 BP readings each time. Keep a record of your BP readings and bring it to your follow-up visits. Ask your healthcare provider what your BP should be. ?? Do not smoke or drink alcohol during your . Alcohol, nicotine, and other chemicals in cigarettes and cigars, can damage your blood vessels and increase your BP. They can also harm your baby. Ask your healthcare provider for information if you currently smoke and need help to quit. E-cigarettes or smokeless tobacco still contain nicotine. Talk to your healthcare provider before you usethese products. ?? Eat healthy foods. Healthy foods can help control your BP. Healthy foods include fruits, vegetables, whole-grain breads, low-fat dairy products, beans, lean meats, and fish. Ask if you need to be on a special diet. ?? Exercise as directed. Exercise can help lower your BP. Ask your healthcare provider how much exercise you need and which exercise is right for you. Follow up with your healthcare provider as directed: Go to all appointments. Your healthcare provider may need to check your blood pressure every 1 to 2 weeks. You will need frequent ultrasounds. An ultrasound checks your baby's growth and makes sure your baby is healthy. Write down your qu estions so you remember to ask them during your visits. ?? 2017 [employer] Information is for End User's use only and may not be sold, redistributed or otherwise used for commercial purposes. All illustrations and images included in CareNotes?? are the copyrighted property of [employer], [employer]. or [employer]. The above information is an educational recruiter only. It is not intended as medical advice for individual conditions or treatments. Talk to your doctor, nurse or pharmacist before following any medical regimen to see if it is safe and effective for you. * Discharge Instr - Activity* Joy Huerta RN - 09/11/2020 8:15 PM CDT Rest often * Discharge Instr - Diet* Joy Huerta RN - 09/11/2020 8:15 PM CDT Regular, then no food for breakfast, come to hospital at 10 am for NST documented in this encounter Medications at Time of Discharge cholecalciferol (VITAMIN D-3) 5,000 unit capsule Take one capsule daily with food. 30 capsule 11 04/17/2020 11/25/2020 ibuprofen (ADVIL,MOTRIN) 600 mg tabletIndications :Pain Take 1 tablet (600 mg total) by mouth every 6 (six) hours as needed for pain 09/14/2020 10/15/2020 labetaloL (NORMODYNE,TRANDA TE) 200 mg tablet Take 1 tablet (200 mg total) by mouth 2 (two) times a day 60 tablet 11 09/14/2020 10/15/2020 vit-iron fum-folic ac 27 mg iron- 0.8 mg tabletIndications :Vitamin Deficiency Prevention Take 1 tablet by mouth daily 09/15/2020 11/25/2020 documented as of this encounter Discharge Disposition Disposition Code Departure Means Destination Discharge to home or self care documented in this encounter Nursing Notes * Joy Huerta RN - 09/11/2020 8:[address] Luis spoke with pt and spouse regarding plan of care. To return to [facility] at 10 am for NST and probable Repeat C/S documented in this encounter Plan of Treatment Not on file documented as of this encounter Procedures Procedure Name Priority Date/Time Associated Diagnosis Comments EGFR STAT 09/11/2020 5:12 PM CDT DIFFERENTIAL AUTO STAT 09/11/2020 5:1 2 PM CDT CBC WITH AUTO DIFFERENTIAL STAT 09/11/2020 5:12 PM CDT URIC ACID STAT 09/11/2020 5:12 PM CDT LACTATE DEHYDROGENASE STAT 09/11/2020 5:12 PM CDT COMPREHENSIVE METABOLIC PANEL STAT 09/11/2020 5:12 PM CDT PROTEIN / CREATININE RATIO, URINE, RANDOM STAT 09/11/2020 5:03 PM CDT documented in this encounter Results * eGFR (09/11/2020 5:12 PM CDT) eGFR 140 mL/min/1.7 3 m2 [facility] ([place]) Comment: Interpretive Data Reference Interval Normal ?>/= 90 mL/min/1.73m2 Mildly decreased* ? 60 - 89 mL/min/1.73m2 Mildly to moderately decreased ?45 - 59 mL/min/1.73m2 Moderately to severely decreased ??30 - 44 mL/min/1.73m2 Severely decreased ?15 - 29 mL/min/1.73m2 Kidney Failure ?< 15 ??mL/min/1.73m2 *Relative to young adult level Estimated glomerular filtration rate is determined by the CKD-EPI equation recommended by the National Kidney Foundation (KDIGO 2012 Clinical Practice Guideline for the Evaluation and Management of Chronic Kidney Disease. Kidney Intnl Suppl Feb 2012;3:1). The CKD-EPI equation should not be used for patients with unstable renal function and has not been validated in children and those over 70. Current interpretive data was last reviewed 2020 Blood specimen (specimen) 09/11/2020 5:12 PM CDT 09/11/2020 5:19 PM CDT us Elias Hurd MD LAB BLOOD ORDERABLES Final Result [facility] ([place]) 1 [facility] Department [place] [address] * Differential, auto (09/11/2020 5:12 PM CDT) Neutrophil abs 6.1 1.7 - 6.5 K/cumm [facility] ([place]) Imm gran abs 0.1 0.0 - 0.1 K/cumm [facility] ([place]) Lymphocyte abs 2.7 0.8 - 3.3 K/cumm [facility] ([place]) Monocyte abs 0.6 0.2 - 0.8 K/cumm [facility] ([place]) Eosinophil abs 0.1 0.0 - 0.5 K/cumm [facility] ([place]) Basophil abs 0.0 0.0 - 0.1 K/cumm [facility] ([place]) Neutrophil pct 64.3 % [facility] ([place]) Comment: Interpretive Data Percent cell count reference ranges are not reported, since discordance with absolute values may lead to misinterpretation of CBC data. Current Interpretive Data was last revised on 2017. Imm gran pct 0.5 % [facility] ([place]) Comment: Interpretive Data Percent cell count reference ranges are not reported, since discordance with absolute values may lead to misinterpretation of CBC data. Current Interpretive Data was last revised on 2017. Lymphocyte pct 28.1 % [facility] ([place]) Comment: Interpretive Data Percent cell count reference ranges are not reported, since discordance with absolute values may lead to misinterpretation of CBC data. Current Interpretive Data was last revised on 2017. Monocyte pct 6.2 % [facility] ([place]) Comment: Interpretive Data Percent cell count reference ranges are not reported, since discordance with absolute values may lead to misinterpretation of CBC data. Current Interpretive Data was last revised on 2017. Eosinophil pct 0.6 % [facility] ([place]) Comment: Interpretive Data Percent cell count reference ranges are not reported, since discordance with absolute values may lead to misinterpretation of CBC data. Current Interpretive Data was last revised on 2017. Basophil pct 0.3 % [facility] ([place]) Comment: Interpretive Data Percent cell count reference ranges are not reported, since discordance with absolute values may lead to misinterpretation of CBC data. Current Interpretive Data was last revised on 2017. Blood specimen (specimen) 09/11/2020 5:12 PM CDT 09/11/2020 5:19 PM CDT Elias Hurd MD LAB BLOOD ORDERABLES Final Result [facility] ([place]) 1 [facility] [place] [address] * Lactate dehydrogenase (LD) (09/11/2020 5:12 PM CDT) Lactate dehydrogenase (LDH) 185 100 - 250 Units/L [facility] ([place]) Blood specimen (specimen) 09/11/2020 5:12 PM CDT 09/11/2020 5:19 PM CDT Elias Hurd MD LAB BLOOD ORDERABLES Final Result Performing Organization Address City/[facility]/ZIP Co de Phone Number [facility] ([place]) 1 [facility] [place] [address] * Uric acid (09/11/2020 5:12 PM CDT) Pathologist [facility] Uric acid 3.6 2.5 - 7.0 mg/dL [facility] ([place]) Blood specimen (specimen) 09/11/2020 5:12 PM CDT 09/11/2020 5:19 PM CDT Elias Hurd MD LAB BLOOD ORDERABLES Final Result Performing Organization Address City/[facility]/ZIP Co de Phone Number [facility] ([place]) 1 [facility] [place] [address] * (ABNORMAL) CBC with auto differential (09/11/2020 5:12 PM CDT) Pathologist [facility] WBC 9.5 3.8 - 9.9 K/cumm [facility] ([place]) Hgb 9.2(L) 11.9 - 15.5 g/dL [facility] ([place]) Hct 27.6(L) 35.6 - 45.5 % [facility] ([place]) Plt 219 150 - 400 K/cumm [facility] ([place]) MPV 9.7 9.1 - 12.3 fL [facility] ([place]) RBC 3.04(L) 3.90 - 5.20 M/cumm [facility] ([place]) MCV 90.8 81.3 - 96.[address] [facility] ([place]) MCH 30.3 27.1 - 33.[address] [facility] ([place]) MCHC 33.3 32.3 - 35.7 g/dL [facility] ([place]) RDW CV 12.6 11.1 - 14.9 % [facility] ([place]) RDW SD 41.1 35.7 - 48.[address] [facility] ([place]) NRBC abs 0.00 0.00 - 0.01 K/cumm [facility] ([place]) Blood specimen (specimen) 09/11/2020 5:12 PM CDT 09/11/2020 5:19 PM CDT us Elias Hurd MD LAB BLOOD ORDERABLES Final Result [facility] ([place]) 1 [facility] Department [place] [address] * (ABNORMAL) Comprehensive metabolic panel (09/11/2020 5:12 PM CDT) Sodium 136 135 - 145 mmol/L [facility] ([place]) Potassium, pl 3.2(L) 3.3 - 4.9 mmol/L [facility] ([place]) Chloride 104 97 - 110 mmol/L [facility] ([place]) CO2 20(L) 22 - 32 mmol/L [facility] ([place]) Anion gap 13 2 - 15 mmol/L [facility] ([place]) BUN 4(L) 8 - 25 mg/dL [facility] ([place]) Creatinine 0.46(L) 0.60 - 1.10 mg/dL [facility] ([place]) Glucose 87 70 - 199 mg/dL [facility] ([place]) Comment: Interpretive Data Fasting glucose >/= 126 mg/dl is diagnostic for diabetes. ?? Fasting is defined as no caloric intake for at least 8 hours. Fasting glucose between 100 mg/dl to 125 mg/dl is diagnostic of prediabetes. In a patient with classic symptoms of hyperglycemia or hyperglycemic crisis, a random glucose >/= 200 mg/dl is diagnostic for diabetes. In the absence of unequivocal hyperglycemia, results should be confirmed by repeat testing. The classification and Diagnosis of Diabetes Diabetes Care 2017;40 (Suppl. 1):S11. Current interpretive data was last revised 2017. Calcium 8.5 8.5 - 10.3 mg/dL [facility] ([place]) Bilirubin, total 0.2 0.1 - 1.2 mg/dL [facility] ([place]) Protein, pl 6.1(L) 6.5 - 8.5 g/dL [facility] ([place]) Albumin 3.3(L) 3.5 - 5.0 g/dL [facility] ([place]) Alk phos 121 40 - 130 Units/L [facility] ([place]) ALT 8 7 - 45 Units/L [facility] ([place]) AST 14 10 - 45 Units/L [facility] ([place]) Blood specimen (specimen) 09/11/2020 5:12 PM CDT 09/11/2020 5:19 PM CDT Elias Hurd MD LAB BLOOD ORDERABLES Final Result [facility] ([place]) 1 [facility] Department [place] [address] * Protein / creatinine ratio, urine, random (09/11/2020 5:03 PM CDT) Protein, ur, quant 8.0 mg/dL [facility] ([place]) Comment: Interpretive Data No reference range established. Current interpretive data was last revised 2018. Creatinine Ur 56.0 mg/dL [facility] ([place]) Comment: Interpretive Data No reference range established. Current interpretive data was last revised 2018. Protein/creatinin e ratio 142.9 0.0 - 180.0 mg/g CR [facility] ([place]) Urine 09/11/2020 5:03 PM CDT 09/11/2020 5:09 PM CDT us Elias Hurd MD LAB URINE ORDERABLES Final Result [facility] ([place]) 1 [facility] Department [place] [address] documented in this encounter Visit Diagnoses Diagnosis Hx of gestational hypertension- Primary documented in this encounter Care Teams Salesperson Florist Supplies Relationship Specialty Start Date End Date No, Physician PCP - General 04/20/20 06/29/23 Dario Keenan MD [address] [place] [address] Referring Physician Obstetrics and Gynecology 10/23/18 documented as of this encounter
--- OUTSIDE RECORDS SUMMARY | 2024-02-09 16:54 | XMS_ITS | Encounter Summary ---
Author Organization [facility] Medical [facility] Address [address] [place] [address] Care Team Providers Care Printer [employer] Name Role Phone Dario Keenan MD Unavailable [phone] No, Physician Primary Care Provider [phone] Reason for Visit * Reason Comments Follow-up PP BP Check Encounter Details Date Type Department Care Team (Late st Contact Info) Description 10/09/2020 10:00 AM CDT Clinical Support [facility] [address] [place] [address] [address] [address] Social History Tobacco Use Types Packs/Day Years [...] Sign Reading Time Taken Comments Blood Pressure 118/78 10/09/2020 10:00 AM CDT Pulse - - Temperature - - Respiratory Rate - - Oxygen Saturation - - Inhaled Oxygen Concentration - - Weight - - Height - - Body Mass Index - - documented in this encounter Progress Notes * Tiff Cummings RN - 10/09/2020 10:00 AM CDT See telephone encounter for further instructions. documented in this encounter Plan of Treatment Not on file documented as of this encounter Visit Diagnoses Not on filedocumented in this encounter Care Teams Printer [employer] Relationship Specialty Start Date End Date No, Physician PCP - General 04/20/20 06/29/23 Dario Keenan MD [address] [place] [address] Referring Physician Obstetrics and Gynecology 10/23/18 documented as of this encounter
--- OUTSIDE RECORDS SUMMARY | 2024-02-09 16:54 | XMS_ITS | Encounter Summary ---
Author Organization [facility] Medical Group Address [address] [place] [address] Care Team Providers Care Supervisor [employer] Name Role Phone Dario Keenan MD Unavailable [phone] No, Physician Primary Care Provider [phone] Reason for Visit * Reason Comments Blood Pressure Check PP BP Check Encounter Details Date Type Department Care Team (Late st Contact Info) Description 10/15/2020 8:30 AM CDT Clinical Support [facility] [address] [place] [address] [address] [address] Social History Tobacco Use Types [...] Sign Reading Time Taken Comments Blood Pressure 124/84 10/15/2020 8:28 AM CDT Pulse - - Temperature - - Respiratory Rate - - Oxygen Saturation - - Inhaled Oxygen Concentration - - Weight - - Height - - Body Mass Index - - documented in this encounter Progress Notes * Tiff Cummings RN - 10/15/2020 8:30 AM CDT BPs WNL. Pt feeling well. Enc to make 6 week PPV. documented in this encounter Plan of Treatment Not on file documented as of this encounter Visit Diagnoses Not on filedocumented in this encounter Discontinued Medications Medication Sig Discontinue Reason Start Date End Da te ibuprofen (ADVIL,MOTRIN) 600 mg tabletIndications:Pain Take 1 tablet (600 mg total) by mouth every 6 (six) hours as needed for pain Therapy completed 09/14/2020 10/15/2020 labetaloL (NORMODYNE,TRANDATE) 200 mg tablet Take 1 tablet (200 mg total) by mouth 2 (two) times a day Therapy completed 09/14/2020 10/15/2020 documented as of this encounter Care Teams Supervisor Hard Candy Relationship Specialty Start Date End Date No, Physician PCP - General 04/20/20 06/29/23 Dario Keenan MD [address] [place] [address] Referring Physician Obstetrics and Gynecology 10/23/18 documented as of this encounter
--- OUTSIDE RECORDS SUMMARY | 2024-02-09 16:54 | XMS_ITS | Encounter Summary ---
Author Organization [facility] Healthcare Address [address] [place] [address] Care Team Providers Care Clinical Support Associate Name Role Phone Dario Keenan MD Unavailable [phone] No, Physician Primary Care Provider [phone] Reason for Visit * Reason Comments Decreased Movement Encounter Details Date Type Department Care Team (Latest Contact Info) Description 08/30/2020 10:52 AM CDT - 08/30/2020 12:50 PM CDT Hospital Encounter [facility] [address] [place] [address] Elias Hurd MD [address] [place] [address] Discharge Disposition: Discharge to home or self [...] Sign Reading Time Taken Comments Blood Pressure 138/88 08/30/2020 12:50 PM CDT Pulse 81 08/30/2020 12:50 PM CDT Temperature - - Respiratory Rate - - Oxygen Saturation - - Inhaled Oxygen Concentration - - Weight - - Height - - Body Mass Index - - documented in this encounter Discharge Diagnoses Diagnosis Decreased movements, unspecified trimester, not applicable or unspecified - DECREASED MOVEMENTS, UNSPECIFIED TRIMESTER, NOT APPLICABLE OR UNSPECIFIED Weeks of gestation of not specified - WEEKS OF GESTATION OF NOT SPECIFIED documented in this encounter Discharge Instructions * Attachments The following attachments cannot be sent through Care Everywhere. * Preeclampsia (Discharge Care) ([place]ib[place]) documented in this encounter Medications at Time [...] breakfast 30 tablet 2 07/27/2020 1 vit [id number]-dh a 27mg iron- 800 mcg-250 mg capsule Take by mouth 1 documented as of this encounter Discharge Disposition Disposition Code Departure Means Destination Discharge to home or self care documented in this encounter Nursing Notes * Saranya Scales RN - 08/30/2020 1:32 PM CDT Patient here with complaints of decreased movement. Reactive NST and patient marking movement. PI labs and urine sent for moderate range blood pressure. Patient has hx of preeclampsia. notified. OK to nh home. Follow up with this week as scheduled. Patient verbalized whento return to L&D including preeclampsia warning signs. Christo LEAL documented in this encounter Plan of Treatment Not on file documented as of this encounter Procedures Procedure Name Priority Date/Time Associated Diagnosis Comments EGFR Routine 08/30/2020 11:53 AM CDT DIFFERENTIAL AUTO STAT 08/30/2020 11: 53 AM CDT CBC WITH AUTO DIFFERENTIAL STAT 08/30/2020 11:53 AM CDT PROTEIN / CREATININE RATIO, URINE, RANDOM STAT 08/30/2020 11:53 AM CDT URIC ACID STAT 08/30/2020 11:53 AM CDT LACTATE DEHYDROGENASE STAT 08/30/2020 11:53 AM CDT COMPREHENSIVE METABOLIC PANEL Routine 08/30/2020 11:53 AM CDT documented in this encounter Results * eGFR (08/30/2020 11:53 AM CDT) [facility] eGFR 146 mL/min/1.7 3 m2 [facility] ([place]) Comment: Interpretive Data Reference Interval Normal ?>/= [...] was last reviewed 2020 Blood specimen (specimen) 08/30/2020 11:53 AM CDT 08/30/2020 11:59 AM CDT us Ashanti Hughes MD LAB BLOOD ORDERABLES Final Result [facility] ([place]) 1 [facility] Department [place] [address] * Differential, auto (08/30/2020 11:53 AM CDT) Neutrophil abs 4.5 1.7 - 6.5 K/cumm [facility] ([place]) Imm gran abs 0.0 0.0 - 0.1 K/cumm [facility] ([place]) Lymphocyte abs 2.5 0.8 - 3.3 K/cumm [facility] ([place]) Monocyte abs 0.5 0.2 - 0.8 K/cumm [facility] ([place]) Eosinophil abs 0.1 0.0 - 0.5 K/cumm [facility] ([place]) Basophil abs 0.0 0.0 - 0.1 K/cumm [facility] ([place]) Neutrophil pct 58.5 % [facility] ([place]) Comment: Interpretive [...] was last revised on 2017. Lymphocyte pct 32.9 % [facility] ([place]) Comment: Interpretive Data Percent cell count reference ranges are not reported, since discordance with absolute values may lead to misinterpretation of CBC data. Current Interpretive Data was last revised on 2017. Monocyte pct 6.7 % [facility] ([place]) Comment: Interpretive Data Percent cell count reference ranges are not reported, since discordance with absolute values may lead to misinterpretation of CBC data. Current Interpretive Data was last revised on 2017. Eosinophil pct 1.0 % [facility] ([place]) Comment: Interpretive Data Percent cell count reference ranges are not reported, since discordance with absolute values may lead to misinterpretation of CBC data. Current Interpretive Data was last revised on 2017. Basophil pct 0.4 % [facility] ([place]) Comment: Interpretive Data Percent cell count reference ranges are not reported, since discordance with absolute values may lead to misinterpretation of CBC data. Current Interpretive Data was last revised on 2017. Blood specimen (specimen) 08/30/2020 11:53 AM CDT 08/30/2020 11:59 AM CDT Ashanti Hughes MD LAB BLOOD ORDERABLES Final Result Performing Organization Address [facility] de Phone Number [facility] ([place]) 1 [facility] [place] [address] * Protein / creatinine ratio, urine, random (08/30/2020 11:53 AM CDT) Protein, ur, quant 15.0 mg/dL [facility] ([place]) Comment: Interpretive Data No reference range established. Current interpretive data was last revised 2018. Creatinine Ur 129.6 mg/dL [facility] ([place]) Comment: Interpretive Data No reference range established. Current interpretive data was last revised 2018. Protein/creatinin e ratio 115.7 0.0 - 180.0 mg/g CR [facility] ([place]) Urine 08/30/2020 11:5 3 AM CDT 08/30/2020 11:59 AM CDT us Ashanti Hughes MD LAB URINE ORDERABLES Final Result Performing Organization Address [facility] Co de Phone Number [facility] ([place]) 1 [facility] [place] [address] * Lactate dehydrogenase (LD) (08/30/2020 11:53 AM CDT) Lactate dehydrogenase (LDH) 185 100 - 250 Units/L [facility] ([place]) Blood specimen (specimen) 08/30/2020 11:53 AM CDT 08/30/2020 11:59 AM CDT Ashanti Hughes MD LAB BLOOD ORDERABLES Final Result Performing Organization Address City/[facility]/ZIP Co de Phone Number [facility] ([place]) 1 [facility] [place] [address] * Uric acid (08/30/2020 11:53 AM CDT) Uric acid 3.3 2.5 - 7.0 mg/dL [facility] ([place]) Blood specimen (specimen) 08/30/2020 11:53 AM CDT 08/30/2020 11:59 AM CDT Ashanti Hughes MD LAB BLOOD ORDERABLES Final Result Performing Organization Address City/[facility] Co de Phone Number [facility] ([place]) 1 [facility] [place] [address] * (ABNORMAL) Comprehensive metabolic panel (08/30/2020 11:53 AM CDT) Sodium 137 135 - 145 mmol/L [facility] ([place]) Potassium, pl 3.4 3.3 - 4.9 mmol/L [facility] ([place]) Chloride 105 97 - 110 mmol/L [facility] ([place]) CO2 21(L) 22 - 32 mmol/L [facility] ([place]) Anion gap 11 2 - 15 mmol/L [facility] ([place]) BUN 5(L) 8 - 25 mg/dL [facility] ([place]) Creatinine 0.41(L) 0.60 - 1.10 mg/dL [facility] ([place]) Glucose 90 70 - 199 mg/dL [facility] ([place]) Comment: Interpretive Data Fasting [...] interpretive data was last revised 2017. Calcium 8.9 8.5 - 10.3 mg/dL [facility] ([place]) Bilirubin, total 0.2 0.1 - 1.2 mg/dL [facility] ([place]) Protein, pl 6.4(L) 6.5 - 8.5 g/dL [facility] ([place]) Albumin 3.4(L) 3.5 - 5.0 g/dL [facility] ([place]) Alk phos 108 40 - 130 Units/L [facility] ([place]) ALT 8 7 - 45 Units/L [facility] ([place]) AST 15 10 - 45 Units/L [facility] ([place]) Blood specimen (specimen) 08/30/2020 11:53 AM CDT 08/30/2020 11:59 AM CDT us Ashanti Hughes MD LAB BLOOD ORDERABLES Final Result [facility] ([place]) 1 [facility] Department [place] [address] * (ABNORMAL) CBC with auto differential (08/30/2020 11:53 AM CDT) WBC 7.7 3.8 - 9.9 K/cumm [facility] ([place]) Hgb 9.6(L) 11.9 - 15.5 g/dL [facility] ([place]) Hct 27.7(L) 35.6 - 45.5 % [facility] ([place]) Plt 240 150 - 400 K/cumm [facility] ([place]) MPV 9.8 9.1 - 12.3 fL [facility] ([place]) RBC 3.11(L) 3.90 - 5.20 M/cumm [facility] ([place]) MCV 89.1 81.3 - 96.4 fL [facility] ([place]) MCH 30.9 27.1 - 33.3 pg [facility] ([place]) MCHC 34.7 32.3 - 35.7 g/dL [facility] ([place]) RDW CV 12.7 11.1 - 14.9 % [facility] ([place]) RDW SD 41.2 35.7 - 48.1 fL [facility] ([place]) NRBC abs 0.00 0.00 - 0.01 K/cumm [facility] ([place]) Blood specimen (specimen) 08/30/2020 11:53 AM CDT 08/30/2020 11:59 AM CDT us Ashanti Hughes MD LAB BLOOD ORDERABLES Final Result [facility] ([place]) 1 [facility] Department [place] [address] documented in this encounter Visit Diagnoses Not on filedocumented in this encounter Care Teams Clinical Support Associate Relationship Specialty Start Date End Date No, Physician PCP - General 04/20/20 06/29/23 Dairo Keenan MD [address] [place] [address] Referring Physician Obstetrics and Gynecology 10/23/18 documented as of this encounter
--- OUTSIDE RECORDS SUMMARY | 2024-02-09 16:54 | XMS_ITS | Encounter Summary ---
Author Organization [facility] Address [address] [place] [address] Care Team Providers Care Kettle Operator Name Role Phone Dario Keenan MD Unavailable [phone] No, Physician Primary Care Provider [phone] Reason for Visit * Reason Onset Date Comments Headaches, 11 weeks PP 11/25/2020 Encounter Details Date Type Department Care Team (Late st Contact Info) Description 11/25/2020 Telephone [facility] [address] [place] [address] Tiff Cummings RN Headaches, 11 weeks PP Social History Tobacco Use Types Packs/Day [...] Telephone Encounter - Tiff Cummings RN - 11/27/2020 1:53 PM CDT Pt called back and made aware. Pt enc to call PCP for further f/u. Pt verbalized understanding. * Telephone Encounter - Tiff Cummings RN - 11/27/2020 1:43 PM CDT LMOM for pt to call office. * Telephone Encounter - Elias Hurd MD - 11/27/2020 1:39 PM CDT Does not appear to be related to a preeclampsia problem. Can take tylenol or ibuprofen. Likely needs appt. With PCP if not better and to discuss anti-hypertensive need shelter. * Telephone Encounter - Tiff Cummings RN - 11/25/2020 3:37 PM CDT Pt called in today c/o increased headaches since last week. Pt was delivered on 09-12-20 via Repeat for pre eclampsia at 37 weeks and 2 days. Pt had her father in law check her BP and it sey411/90. Pt was brought in the office for a nurse visit and BP were 126/76 and 126/82. Pt was takingBP meds but has been off of them for a while. Please call pt to discuss. Thanks! documented in this encounter Plan of Treatment Not on file documented as of this encounter Visit Diagnoses Not on filedocumented in this encounter Care Teams Kettle Operator Relationship Specialty Start Date End Date No, Physician PCP - General 04/20/20 06/29/23 Dario Keenan MD [address] [place] [address] Referring Physician Obstetrics and Gynecology 10/23/18 documented as of this encounter
--- OUTSIDE RECORDS SUMMARY | 2024-02-09 16:54 | XMS_ITS | Encounter Summary ---
Author Organization [facility] Medical [facility] Address [address] [place] [address] Care Team Providers Care Editor Map Name Role Phone Dario Keenan MD Unavailable [phone] No, Physician Primary Care Provider [phone] Reason for Visit * Reason Comments Routine Visit Encounter Details Date Type Department Care Team (Late st Contact Info) Description 09/11/2020 3:15 PM CDT Routine [facility] [address] [place] [address] [address] [place] [id number] Elias Hurd MD [address] [place] [address] [address] [place] [address] Encounter for supervision of other normal in third trimester (Primary Dx); 37 weeks gestation of Social History Tobacco Use [...] Sign Reading Time Taken Comments Blood Pressure 126/94 09/11/2020 3:22 PM CDT Pulse - - Temperature - - Respiratory Rate - - Oxygen Saturation - - Inhaled Oxygen Concentration - - Weight 91.6 kg (202 lb) 09/11/2020 3:22 PM CDT Height 170.2 cm (5' 7 ) 09/11/2020 3:22 PM CDT Body Mass Index 31.64 09/11/2020 3:22 PM CDT documented in this encounter Progress Notes * Elias Hurd MD - 09/11/2020 3:15 PM CDT Pelvic pressure and hip pain; occasional headache this week. No visual changes. S=D. 140/94 sittingbp by me. documented in this encounter Plan of Treatment Not on file documented as of this encounter Procedures Procedure Name Priority Date/Time Associated Diagnosis Comments POCT URINALYSIS DIPSTICK Routine 09/11/2020 3:24 PM CDT Encounter for supervision of other normal in third trimester 37 weeks gestation of documented in this encounter Results * POCT urinalysis dipstick (09/11/2020 3:24 PM CDT) Glucose, ur, POC Negative Negative mg/dL Protein, ur, POC Negative Negative Lot Number [id number] Urine 09/11/2020 3:24 PM CDT Elias Hurd MD POINT OF CARE TEST ORDERAB LES Final Result documented in this encounter Visit Diagnoses Diagnosis Encounter for supervision of other normal in third trimester- Primary 37 weeks gestation of documented in this encounter Discontinued Medications Medication Sig Discontinue Reason Start Date End Da te aspirin 81 mg enteric coated tablet Take 1 tablet (81 mg total) by mouth daily Therapy completed 04/17/2020 09/11/2020 docusate sodium (COLACE) 100 mg capsuleIndications:cons tipation Take 1 capsule (100 mg total) by mouth 2 (two) times a day Therapy completed 07/27/2020 09/11/2020 ferrous sulfate 325 mg (65 mg of elemental iron) tabletIndications:Iron Deficiency Anemia Take 1 tablet (325 mg total) by mouth daily with breakfast Therapy completed 07/27/2020 09/11/2020 vit 86-zhwp-wdqih-dha 27mg iron- 800 mcg-250 mg capsule Take by mouth Therapy completed 09/11/2020 documented as of this encounter Care Teams Editor Map Relationship Specialty Start Date End Date No, Physician PCP - General 04/20/20 06/29/23 Dario Keenan MD [address] [place], [place] [address] Referring Physician Obstetrics and Gynecology 10/23/18 documented as of this encounter
--- OUTSIDE RECORDS SUMMARY | 2024-02-09 16:54 | XMS_ITS | Encounter Summary ---
Author Organization [facility] Medical [facility] Address [address] [place] [address] Care Team Providers Care Window Installer Name Role Phone Dario Keenan MD Unavailable [phone] No, Physician Primary Care Provider [phone] Reason for Visit * Reason Onset Date Comments Dysmenorrhea 11/23/2020 Encounter Details Date Type Department Care Team (Late st Contact Info) Description 11/23/2020 Telephone [facility] [address] [facility] [address] [place] [address] Dimple Alvarez, RN Dysmenorrhea Social History Tobacco Use Types Packs/Day Years [...] encounter Miscellaneous Notes * Telephone Encounter - Dimple Alvarez RN - 11/23/2020 8:12 AM CDT Called with horrible cramping times two days. Dr. Hylton advises she give the new OCP a month or two and see if the cramping lessens. Tylenol or Advil for discomfort. Call if symptoms worsen. documented in this encounter Plan of Treatment Not on file documented as of this encounter Visit Diagnoses Not on filedocumented in this encounter Care Teams Window Installer Relationship Specialty Start Date End Date No, Physician PCP - General 04/20/20 06/29/23 Dario Keenan MD [address] [place] [address] Referring Physician Obstetrics and Gynecology 10/23/18 documented as of this encounter
--- OUTSIDE RECORDS SUMMARY | 2024-02-09 16:54 | XMS_ITS | Encounter Summary ---
Author Organization [facility] Medical [facility] Address [address] [place] [address] Care Team Providers Care Veterinary Bacteriologist Name Role Phone Dario Keenan MD Unavailable [phone] No, Physician Primary Care Provider [phone] Reason for Visit * Reason Comments Follow up Ob ER Follow up Encounter Details Date Type Department Care Team (Late Contact Info) Description 08/10/2020 10:15 AM CDT Office Visit [facility] [address] [place] [address] [address] [place] [id number] Elias Hurd MD [address] [place] [address] [address] [place] [address] Encounter for supervision of other normal in third trimester (Primary Dx); 32 weeks gestation of Social History Tobacco Use [...] Sign Reading Time Taken Comments Blood Pressure 122/64 08/10/2020 10:20 AM CDT Pulse - - Temperature - - Respiratory Rate - - Oxygen Saturation - - Inhaled Oxygen Concentration - - Weight 88.5 kg (195 lb) 08/10/2020 10:20 AM CDT Height 170.2 cm (5' 7 ) 08/10/2020 10:20 AM CDT Body Mass Index 30.54 08/10/2020 10:20 AM CDT documented in this encounter Progress Notes * Elias Hurd MD - 08/10/2020 10:15 AM CDT No c/os. S<D. Check FARNAZ garcia. 28 wk labs reviewed: hx of cold sores; continue vit. D. Taking iron discussed. PTL instructions. documented in this encounter Plan of Treatment Not on file documented as of this encounter Procedures Procedure Name Priority Date/Time Associated Diagnosis Comments POCT URINALYSIS DIPSTICK Routine 08/10/2020 10:30 AM CDT Encounter for supervision of other normal in third trimester 32 weeks gestation of documented in this encounter Results * POCT urinalysis dipstick (08/10/2020 10:30 AM CDT) Glucose, ur, POC Negative Negative mg/dL Protein, ur, POC Negative Negative Lot Number [id number] Urine 08/10/2020 10:3 0 AM CDT Elias Hurd MD POINT OF CARE TEST ORDERAB LES Final Result documented in this encounter Visit Diagnoses Diagnosis Encounter for supervision of other normal in third trimester- Primary 32 weeks gestation of documented in this encounter Care Teams Veterinary Bacteriologist Relationship Specialty Start Date End Date No, Physician PCP - General 04/20/20 06/29/23 Dario Keenan MD [address] [place] [address] Referring Physician Obstetrics and Gynecology 10/23/18 documented as of this encounter
--- OUTSIDE RECORDS SUMMARY | 2024-02-09 16:54 | XMS_ITS | Encounter Summary ---
Author Organization [facility] Healthcare Address [address] [place] [address] Care Team Providers Care Pharmacy Informaticist Name Role Phone Dario Keenan MD Unavailable [phone] No, Physician Primary Care Provider [phone] Encounter Details Date Type Department Care Team (Latest Contact Info) Description 09/12/2020 9:50 AM CDT - 09/14/2020 7:50 PM CDT Hospital Encounter [facility] [address] [place] [id number] Elias Hurd MD [address] [place] [address] [facility] [address] [place] [address] Juan Luis MD [address] [facility] [address] [place] [address] [facility] [address] [place] [address] Discharge Disposition: Discharge to home or self [...] Sign Reading Time Taken Comments Blood Pressure 144/103 09/14/2020 3:55 PM CDT Pulse 70 09/14/2020 3:55 PM CDT Temperature 36.7 ??C (98 ??F) 09/14/2020 3:55 PM CDT Respiratory Rate 18 09/14/2020 3:55 PM CDT Oxygen Saturation 100% 09/13/2020 11:20 PM CDT Inhaled Oxygen Concentration - - Weight 91.6 kg (202 lb) 09/12/2020 10:03 AM CDT Height 170.2 cm (5' 7 ) 09/12/2020 10:03 AM CDT Body Mass Index 31.64 09/12/2020 10:03 AM CDT documented in this encounter Discharge Diagnoses Diagnosis Maternal care for low transverse scar from previous delivery - MATERNAL CARE FOR LOW TRANSVERSE SCAR FROM PREVIOUS DELIVERY Single live - SINGLE LIVE 37 weeks gestation of - 37 WEEKS GESTATION OF Gestational (-induced) hypertension without significant proteinuria, complicating childbirth - GESTATIONAL [-INDUCED] HYPERTENSION WITHOUT SIGNIFICANT PROTEINURIA, COMPLICATING CHILDBIRT documented in this encounter Discharge Summaries * Juan Luis MD - 09/14/2020 7:50 PM CDT The patient had a repeat c section on 09/12/20 at 37 weeks for severe - induced hypertension Please see H&P and operative report for details. Post operatively the patient did very well. On POD #1 she was able to void Without her catheter, eat a regualr diet, and take an unassisted shower. On further post operative days she was able to ambulate extensively, remain Afebrile, and had her pain well controlled with oral pain meds. At the time of discharge on 09/14cshe had prescriptions for motrin, 200 mg labetalol bid, and norco and A follow up apt. In the office to have her eli removed. documented in this encounter Discharge Instructions * Attachments The following attachments cannot be sent through Care Everywhere. * Self Care After Delivery (Nitrocellulose Maker) (Chinese) documented in this encounter Medications at [...] 09/15/2020 11/25/2020 documented as of this encounter Ordered Prescriptions Prescription Sig Dispense Quantity Refills Last Filled Start Date End Date vit-iron fum-folic ac 27 mg iron- 0.8 mg tabletIndications: Vitamin Deficiency Prevention Take 1 tablet by mouth daily 09/15/2020 11/25/2020 labetaloL (NORMODYNE,TRANDAT E) 200 mg tablet Take 1 tablet (200 mg total) by mouth 2 (two) times a day 60 tablet 11 09/14/2020 10/15/2020 ibuprofen (ADVIL,MOTRIN) 600 mg tabletIndications: Pain Take 1 tablet (600 mg total) by mouth every 6 (six) hours as needed for pain 09/14/2020 10/15/2020 documented in this encounter Discharge Disposition Disposition Code Departure Means Destination Discharge to home or self care documented in this encounter Progress Notes * Joy Huerta RN - 09/14/2020 8:00 PM CDT Infant placed in car seat and carried to vehicle by Father. Pt out to car ambulatory * Ashanti Hughes MD - 09/14/2020 5:55 PM CDT follow up Reports feeling well, without complaints. BP's continue mildly elevated at 144/103, 140/98. Plan discharge home on labetalol 200 mg PO BID. Patient to contact primary OB's office tomorrow AM to schedule office f/u for BP check later this week. Precautions discussed. * Juan Luis MD - 09/14/2020 8:56 AM CDT Post day # 2 Status post repeat c/s for PIH On oral BP meds S: feeling Ok, pain control adequate, good progress Bonding well with baby O: afebrile, last BP still elevated lochia appropriate Chest: good air movement Cv: RRR Abd: soft, NT, fundus firm Ext: (-) A/P Doing well, will work on BPs Plan discharge later today if Bps improve * Joy Huerta RN - 09/13/2020 11:00 PM CDT Strongly again enc to shower to remove post op drsg, * Juan Luis MD - 09/13/2020 3:14 AM CDT POD #1 s/p S: Pain control good. Glad to be done. Baby bonding well O:required one hit of labetalol for BP control overnight Afebrile / VSS Lochia ; normal Chest: lungs clear / good air mvmnt Cv: rrr Abd: dressing dry and intact A/P Status post c/section. POD #1 advances planned : Regular diet, ambulation, void without welch, shower. If all goes well home tomorrow documented in this encounter H&P Notes * Juan Luis MD - 09/12/2020 3:10 PM CDT 25 y.o. at 37 2/[address] Hurd with a history of 35 week c/s for severe pre-eclampsia. Elevated Bps yesterday and today. In the 150 /90 range. Pre-eclamptic labs normal OB hx: previous c/s , planning for repeat Med hx: otherwise healthy surg hx: c/s Allergies: PCN Physical exam: HEENT: clear Cv: rrr Lungs: clear Abd: soft, NT, ND Fundus appropriate for dates FHTs 140s and reactive Ext: (-) Impression/Plan 37 2/7 weeks with -induced HTN in a setting of previous pre-eclampsia Plan for repeat c/s. Risks and benefits discussed. Anxious to proceed. documented in this encounter Nursing Notes * Ebony Munoz RN - 09/13/2020 3:50 PM CDT Call to Dr. Luis about patients blood pressures today. Orders received. documented in this encounter Miscellaneous Notes * Plan of Care - Joy Huerta RN - 09/14/2020 7:21 PM CDT Problem: Activity: Goal: Ability to tolerate increased activity will improve Outcome: Completed Goals: Clinical Goals for the Shift: vss, control pain Summary: goals completed * Plan of Care - Joy Huerta RN - 09/14/2020 4:54 AM CDT Problem: Activity: Goal: Ability to tolerate increased activity will improve Outcome: Progressing Goals: Clinical Goals for the Shift: VSS, control pain, increase activity Summary: progressing toward goals * Plan of Care - Susana Mancini RN - 09/12/2020 5:14 PM CDT Problem: Activity: Goal: Ability to tolerate increased activity will improve Outcome: Progressing Problem: Bowel/Gastric: Goal: Gastrointestinal status for postoperative course will improve Outcome: Progressing Problem: Lack of Knowledge: Goal: Knowledge of Section Care will improve Outcome: Progressing Problem: Life Cycle: Goal: Chance of risk for complications during the period will decrease Outcome: Progressing Problem: Physical Regulation: Goal: Postoperative complications will be avoided or minimized Outcome: Progressing Problem: Respiratory: Goal: Ability to maintain adequate ventilation will improve Outcome: Progressing Problem: Role Relationship: Goal: Ability to demonstrate positive interaction with the child will improve Outcome: Progressing Problem: Sensory: Goal: Pain level will decrease Outcome: Progressing Goal: Satisfaction with pain management regimen will improve Outcome: Progressing Problem: Skin Integrity: Goal: Demonstration of wound healing without infection will improve Outcome: Progressing Goal: Ability to participate in self-care as condition permits will improve Outcome: Progressing Problem: Urinary Elimination: Goal: Ability to reestablish a normal urinary elimination pattern will improve Outcome: Progressing Goals: Clinical Goals for the Shift: Have a healthy baby boy born via Summary: Bonding with baby boy and resting. Reporting pain controlled. * Op Note - Juan Luis MD - 09/12/2020 3:14 PM CDT Pre op dx: 1) 37 5/7 weeks 2) -induced HTN 3) previous c/section - desires repeat Post op dx: same Procedure: repeat section Surgeon : Juan Luis MD Anesth: spinal EBL: 500cc Findings: Vigorous infant from vertex presentation APGARS 8/9 Wt: pending Clear amniotic fluid Placenta intact with 3v cord. Description of Procedure: After confirmation that her anesthesia was adequate, A pfannenstiel skin incision was made with a scalpel and carried down to the fascia. The fascia wasopened in the midplane and extended laterally with reaves scissors. The superior and inferior aspectsof the fascial incision were grasped with Keaton clamps and elevated with the muscles being dissected of both bluntly as well as with the bovie cautery. Muscles were In the midline and the peritoneal cavity was entered bluntly and extended manually. A bladder flap was created in the vesico- uterrine peritoneum and a bladder blade was placed behind it. The uterrine incision was made with a scalpel in a low transverse manner and extended manually. Thebaby was delivered from vertex presentation, the nose and mouth were bulb suctioned, the cord was clamped and cut, and the baby was handed off to the waiting team. The placenta was removed manually, the uterus was then exteriorized and cleared of clots and debriswith a moist laparotomy sponge. Two layers of #1 chromic were used in a locked fashion to close theuterrine incision, hemostasis was excellent. The uterus was returned to the abdomen. The fascia wasclosed with #0 vicryl in a running fashion prior to the skin being closed with eli. The patientwas taken to the recovery room in good condition. documented in this encounter Plan of Treatment Not on file documented as of this encounter Procedures Procedure Name Priority Date/Time Associated Diagnosis Comments EGFR STAT 09/12/2020 9:49 PM CDT DIFFERENTIAL AUTO STAT 09/12/2020 9:4 9 PM CDT CBC WITH AUTO DIFFERENTIAL STAT 09/12/2020 9:49 PM CDT URIC ACID STAT 09/12/2020 9:49 PM CDT LACTATE DEHYDROGENASE STAT 09/12/2020 9:49 PM CDT COMPREHENSIVE METABOLIC PANEL STAT 09/12/2020 9:49 PM CDT REPEAT SECTION 09/12/2020 2:34 PM CDT DIFFERENTIAL AUTO STAT 09/12/2020 11: 27 AM CDT CBC WITH AUTO DIFFERENTIAL STAT 09/12/2020 11:27 AM CDT ABO/RH STAT 09/12/2020 11:27 AM CDT ANTIBODY SCREEN STAT 09/12/2020 11:27 AM CDT TYPE AND SCREEN STAT 09/12/2020 11:27 AM CDT documented in this encounter Results * eGFR (09/12/2020 9:49 PM CDT) [facility] Signature eGFR 138 mL/min/1.7 3 m2 [facility] ([place]) Comment: Interpretive Data Reference Interval Normal ?>/= [...] was last reviewed 2020 Blood specimen (specimen) 09/12/2020 9:49 PM CDT 09/12/2020 10:00 PM CDT us Juan Luis MD LAB BLOOD ORDERABLES F inal Result [facility] ([place]) 1 [facility] Department [place] [address] * (ABNORMAL) Differential, auto (09/12/2020 9:49 PM CDT) Neutrophil abs 9.1(H) 1.7 - 6.5 K/cumm [facility] ([place]) Imm gran abs 0.1 0.0 - 0.1 K/cumm [facility] ([place]) Lymphocyte abs 3.3 0.8 - 3.3 K/cumm [facility] ([place]) Monocyte abs 0.9(H) 0.2 - 0.8 K/cumm [facility] ([place]) Eosinophil abs 0.0 0.0 - 0.5 K/cumm [facility] ([place]) Basophil abs 0.0 0.0 - 0.1 K/cumm [facility] ([place]) Neutrophil pct 68.2 % [facility] ([place]) Comment: Interpretive Data Percent cell count reference ranges are not reported, since discordance with absolute values may lead to misinterpretation of CBC data. Current Interpretive Data was last revised on 2017. Imm gran pct 0.4 % [facility] ([place]) Comment: Interpretive Data Percent cell count reference ranges are not reported, since discordance with absolute values may lead to misinterpretation of CBC data. Current Interpretive Data was last revised on 2017. Lymphocyte pct 24.4 % [facility] ([place]) Comment: Interpretive Data Percent cell count reference ranges are not reported, since discordance with absolute values may lead to misinterpretation of CBC data. Current Interpretive Data was last revised on 2017. Monocyte pct 6.4 % [facility] ([place]) Comment: Interpretive Data Percent cell count reference ranges are not reported, since discordance with absolute values may lead to misinterpretation of CBC data. Current Interpretive Data was last revised on 2017. Eosinophil pct 0.3 % [facility] ([place]) Comment: Interpretive [...] last revised on 2017. Blood specimen (specimen) 09/12/2020 9:49 PM CDT 09/12/2020 10:00 PM CDT Juan Luis MD LAB BLOOD ORDERABLES F inal Result Performing Organization Address [facility]/ZIP Co de Phone Number [facility] ([place]) 1 [facility] [place] [place] [address] * Uric acid (09/12/2020 9:49 PM CDT) Uric acid 3.7 2.5 - 7.0 mg/dL [facility] ([place]) Blood specimen (specimen) 09/12/2020 9:49 PM CDT 09/12/2020 10:00 PM CDT Juan Luis MD LAB BLOOD ORDERABLES F inal Result Performing Organization Address [facility]/[place] Co de Phone Number [facility] ([place]) [address] [place] [address] [place] [address] * Lactate dehydrogenase (LD) (09/12/2020 9:49 PM CDT) Lactate dehydrogenase (LDH) 196 100 - 250 Units/L [facility] ([place]) Blood specimen (specimen) 09/12/2020 9:49 PM CDT 09/12/2020 10:00 PM CDT Juan Luis MD LAB BLOOD ORDERABLES F inal Result Performing Organization Address City/[facility]/ZIP Co de Phone Number [facility] ([place]) 1 [facility] [place] [place] [address] * (ABNORMAL) Comprehensive metabolic panel (09/12/2020 9:49 PM CDT) Sodium 137 135 - 145 mmol/L [facility] ([place]) Potassium, pl 3.2(L) 3.3 - 4.9 mmol/L [facility] ([place]) Chloride 105 97 - 110 mmol/L [facility] ([place]) CO2 22 22 - 32 mmol/L [facility] ([place]) Anion gap 10 2 - 15 mmol/L [facility] ([place]) BUN <3(L) 8 - 25 mg/dL [facility] ([place]) Creatinine 0.48(L) 0.60 - 1.10 mg/dL [facility] ([place]) Glucose 93 70 - 199 mg/dL [facility] ([place]) Comment: Interpretive Data Fasting glucose [...] interpretive data was last revised 2017. Calcium 8.7 8.5 - 10.3 mg/dL [facility] ([place]) Bilirubin, total 0.3 0.1 - 1.2 mg/dL [facility] ([place]) Protein, pl 6.2(L) 6.5 - 8.5 g/dL [facility] ([place]) Albumin 3.2(L) 3.5 - 5.0 g/dL [facility] ([place]) Alk phos 120 40 - 130 Units/L [facility] ([place]) ALT 8 7 - 45 Units/L [facility] ([place]) AST 15 10 - 45 Units/L [facility] ([place]) Blood specimen (specimen) 09/12/2020 9:49 PM CDT 09/12/2020 10:00 PM CDT us Juan Luis MD LAB BLOOD ORDERABLES F inal Result [facility] ([place]) 1 [facility] Department [place] [address] * (ABNORMAL) CBC with auto differential (09/12/2020 9:49 PM CDT) WBC 13.4(H) 3.8 - 9.9 K/cumm [facility] ([place]) Hgb 9.2(L) 11.9 - 15.5 g/dL [facility] ([place]) Hct 27.6(L) 35.6 - 45.5 % [facility] ([place]) Plt 226 150 - 400 K/cumm [facility] ([place]) MPV 9.7 9.1 - 12.3 fL [facility] ([place]) RBC 3.03(L) 3.90 - 5.20 M/cumm [facility] ([place]) MCV 91.1 81.3 - 96.4 fL [facility] ([place]) MCH 30.4 27.1 - 33.3 pg [facility] ([place]) MCHC 33.3 32.3 - 35.7 g/dL [facility] ([place]) RDW CV 12.7 11.1 - 14.9 % [facility] ([place]) RDW SD 41.6 35.7 - 48.1 fL [facility] ([place]) NRBC abs 0.00 0.00 - 0.01 K/cumm [facility] ([place]) Blood specimen (specimen) 09/12/2020 9:49 PM CDT 09/12/2020 10:00 PM CDT us Juan Luis MD LAB BLOOD ORDERABLES F inal Result [facility] ([place]) 1 [facility] [place] [address] * (ABNORMAL) Differential, auto (09/12/2020 11:27 AM CDT) Neutrophil abs 6.7(H) 1.7 - 6.5 K/cumm [facility] ([place]) Imm gran abs 0.1 0.0 - 0.1 K/cumm [facility] ([place]) Lymphocyte abs 2.7 0.8 - 3.3 K/cumm [facility] ([place]) Monocyte abs 0.6 0.2 - 0.8 K/cumm [facility] ([place]) Eosinophil abs 0.1 0.0 - 0.5 K/cumm [facility] ([place]) Basophil abs 0.1 0.0 - 0.1 K/cumm [facility] ([place]) Neutrophil pct 66.1 % [facility] ([place]) Comment: Interpretive Data Percent cell count reference ranges are not reported, since discordance with absolute values may lead to misinterpretation of CBC data. Current Interpretive Data was last revised on 2017. Imm gran pct 0.7 % [facility] ([place]) Comment: Interpretive Data Percent cell count reference ranges are not reported, since discordance with absolute values may lead to misinterpretation of CBC data. Current Interpretive Data was last revised on 2017. Lymphocyte pct 26.7 % [facility] ([place]) Comment: Interpretive Data Percent cell count reference ranges are not reported, since discordance with absolute values may lead to misinterpretation of CBC data. Current Interpretive Data was last revised on 2017. Monocyte pct 5.4 % [facility] ([place]) Comment: Interpretive Data [...] was last revised on 2017. Basophil pct 0.5 % [facility] ([place]) Comment: Interpretive Data Percent cell count reference ranges are not reported, since discordance with absolute values may lead to misinterpretation of CBC data. Current Interpretive Data was last revised on 2017. Blood specimen (specimen) 09/12/2020 11:27 AM CDT 09/12/2020 11:42 AM CDT us Juan Luis MD LAB BLOOD ORDERABLES F inal Result [facility] ([place]) 1 [facility] Department [place] [address] * Antibody screen (09/12/2020 11:27 AM CDT) Demarco, indirect, Gel Interpretation Negative ABSC [facility] ([place]) Blood specimen (specimen) 09/12/2020 11:27 AM CDT 09/12/2020 11:42 AM CDT Narrative MICHAELAHAI LANETTE ([place]) - 09/12/2020 12:35 PM CDT Has the patient had Daratumumab or Isatuximab in the past 6 months?->Unknown Juan Luis MD LAB BLOOD BANK TEST OR DERABLES Final Result Performing Organization Address [facility]/[place] Co de Phone Number [facility] ([place]) 1 [facility] [place] [place] [address] * ABO/Rh (09/12/2020 11:27 AM CDT) ABO/Rh AB Positive [facility]es[facility] ([place]) Blood specimen (specimen) 09/12/2020 11:27 AM CDT 09/12/2020 11:42 AM CDT Narrative [facility] ([place]) - 09/12/2020 12:35 PM CDT Has the patient had Daratumumab or Isatuximab in the past 6 months?->Unknown Juan Luis MD LAB BLOOD BANK TEST OR DERABLES Final Result Performing Organization Address City/[facility]/[place] Co de Phone Number [facility] ([place]) 1 [facility] [place] [place] [address] * (ABNORMAL) CBC with auto differential (09/12/2020 11:27 AM CDT) WBC 10.2(H) 3.8 - 9.9 K/cumm [facility] ([place]) Hgb 10.0(L) 11.9 - 15.5 g/dL [facility] ([place]) Hct 30.1(L) 35.6 - 45.5 % [facility] ([place]) Plt 235 150 - 400 K/cumm [facility] ([place]) MPV 10.0 9.1 - 12.3 fL [facility] ([place]) RBC 3.33(L) 3.90 - 5.20 M/cumm [facility] ([place]) MCV 90.4 81.3 - 96.4 fL [facility] ([place]) MCH 30.0 27.1 - 33.3 pg [facility] ([place]) MCHC 33.2 32.3 - 35.7 g/dL [facility] ([place]) RDW CV 12.7 11.1 - 14.9 % [facility] ([place]) RDW SD 41.1 35.7 - 48.1 fL [facility] NRBC abs 0.00 0.00 - 0.01 K/cumm [facility] Blood specimen (specimen) 09/12/2020 11:27 AM CDT 09/12/2020 11:42 AM CDT us Juan Luis MD LAB BLOOD ORDERABLES F inal Result [facility] ([place]) 1 [facility] Department of Laboratories [place], [place] [id number] documented in this encounter Visit Diagnoses Not on filedocumented in this encounter Administered Medications Inactive Administered Medications - up to 3 most recent administrations Medication Order MAR Action Action Date Dose Rate Site dextrose 5% and Lactated Ringer's infusion 125 mL/hr, intravenous, Continuous, Starting on 09/12/20 at 2115, Until regular diet. New Bag 09/13/2020 12:11 AM CDT 125 mL/hr 125 mL/hr New Bag 09/12/2020 4:50 PM CDT 125 mL/hr 125 mL/hr docusate sodium (COLACE) capsule 100 mg 100 mg, oral, 2 times daily, First dose on 09/12/20 at 2100, Hold if diarrhea., Indications: constipation, Stool SoftenerIndications:constipation,Stool Softener Given 09/14/2020 9:06 AM CDT 100 mg Given 09/13/2020 9:34 PM CDT 100 mg Given 09/13/2020 9:28 AM CDT 100 mg ibuprofen (ADVIL,MOTRIN) tablet 600 mg 600 mg, oral, Every 6 hours PRN, 1st line for pain, Starting on 09/13/20 at 1316, Start in 24 hours after Anesthesia no longer covering., Indications: PainIndications:Pain Given 09/14/2020 7:13 PM CDT 600 mg Given 09/14/2020 2:43 PM CDT 600 mg Given 09/14/2020 9:06 AM CDT 600 mg ketorolac (TORADOL) 15 mg/mL injection 15 mg 15 mg, intravenous, Every 6 hours PRN, 2nd line for pain, Starting on 09/12/20 at 1641, For 24 hours, Max 4 doses. Anesthesia orders for the first 24 hours ., Indications: PainIndications:Pain Given 09/13/2020 9:28 AM CDT 15 mg labetaloL (NORMODYNE,TRANDATE) injection 20 mg 20 mg, intravenous, at 120 mL/hr, Administer over 2 Minutes, Once, On 09/12/20 at 2200, For 1 dose Given 09/12/2020 9:26 PM CDT 20 mg 120 mL/hr labetaloL (NORMODYNE,TRANDATE) tablet 200 mg 200 mg, oral, 2 times daily, First dose on 09/13/20 at 1545 Given 09/14/2020 9:06 AM CDT 200 mg Given 09/13/2020 3:53 PM CDT 200 mg labetaloL (NORMODYNE,TRANDATE) tablet 200 mg 200 mg, oral, Once, On 09/13/20 at 2200, For 1 dose Given 09/13/2020 9:34 PM CDT 200 mg Lactated Ringer's (LR) bolus 2,000 mL 2,000 mL, intravenous, at 1,000 mL/hr, Administer over 2 Hours, Once preop for OB ONLY, On 09/12/20 at 1130, For 1 dose, L&D Pre-Delivery New Bag 09/12/2020 11:00 AM CDT 2,000 mL 1000 mL/hr ondansetron (ZOFRAN) injection 4 mg 4 mg, intravenous, Administer over 2 Minutes, Every 6 hours PRN, nausea, vomiting, if not tolerating PO, Starting on 09/13/20 at 1316, Start in 24 hours after Anesthesia no longer covering., Indications: Nausea and VomitingIndications:Nausea and Vomiting ondansetron ODT (ZOFRAN-ODT) disintegrating tablet 4 mg 4 mg, oral, Every 6 hours PRN, nausea, vomiting, Starting on 09/13/20 at 1316, Start in 24 hours after Anesthesia no longer covering., Indications: Nausea and VomitingIndications:Nausea and Vomiting vit-iron fum-folic ac tablet 1 tablet 1 tablet, oral, Daily, First dose on 09/12/20 at 1715, Begin when normal bowel activity resumes., Indications: Vitamin Deficiency PreventionIndications:Vitamin Deficiency Prevention Given 09/14/2020 9:06 AM CDT 1 tablet Given 09/13/2020 9:28 AM CDT 1 tablet documented in this encounter Active and Recently Administered Medications Times are shown in CDT. Scheduled Medication Order 09/12/2020 09/13/2020 09/14/2020 ceFAZolin (ANCEF) 1 gram/10 mL in sterile water (premix) 2,000 mg (COMPLETED) 2,000 mg, intravenous, at 400 mL/hr, Administer over 3 Minutes, Once preop for OB ONLY, On 09/12/20 at 1300, For 1 dose, L&D Pre-Delivery, Administer within 60 minutes of incision., Indications: Prophylaxis, Surgical 1447 (Given - Provider: Stan Rao, DALIA) docusate sodium (COLACE) capsule 100 mg 100 mg, oral, 2 times daily, First dose on 09/12/20 at 2100, Hold if diarrhea., Indications: constipation, Stool Softener 2129 (Not Given - Provider: Rashmi Macias RN - Reason: Other) 927 (Given - Provider: Ebony Munoz RN)2133 (Given - Provider: Joy Huerta, MEL) 905 (Given - Provider: Matilde Andrews RN) labetaloL (NORMODYNE,TRANDATE) injection 20 mg (COMPLETED) 20 mg, intravenous, at 120 mL/hr, Administer over 2 Minutes, Once, On 09/12/20 at 2200, For 1 dose 2125 (Given - Provider: Rashmi Macias RN)2129 (Due) labetaloL (NORMODYNE,TRANDATE) tablet 200 mg 200 mg, oral, 2 times daily, First dose on 09/13/20 at 1545 1553 (Given - Provider: Ebony Munoz RN) 09 (Given - Provider: Matilde Andrews, MEL) labetaloL (NORMODYNE,TRANDATE) tablet 200 mg (COMPLETED) 200 mg, oral, Once, On 09/13/20 at 2200, For 1 dose 2133 (Given - Provider: Joy Huerta, MEL) Lactated Ringer's (LR) bolus 2,000 mL (COMPLETED) 2,000 mL, intravenous, at 1,000 mL/hr, Administer over 2 Hours, Once preop for OB ONLY, On 09/12/20 at 1130, For 1 dose, L&D Pre-Delivery 1100 (New Bag - Provider: Susana Mancini, MEL) vit-iron fum-folic ac tablet 1 tablet 1 tablet, oral, Daily, First dose on 09/12/20 at 1715, Begin when normal bowel activity resumes., Indications: Vitamin Deficiency Prevention 1642 (Not Given - Provider: Susana Mancini RN - Reason: Contraindicated) 09 (Given - Provider: Ebony Munoz RN) 09 (Given - Provider: Matilde Andrews, MEL) sodium chloride 0.9% flush 0.5-20 mL 0.5-20 mL, intra-catheter, Every 8 hours scheduled, First dose on 09/12/20 at 1715, Flush volume based on line type and size. , Indications: Flushing 1643 (Not Given - Provider: Susana Mancini, MEL - Reason: IV Infusing)2200 (Due) 0600 (Due)1400 (Due)2200 (Due) 0600 (Due)1400 (Due) Continuous Medication Order 09/12/2020 09/13/2020 09/14/2020 dextrose 5% and Lactated Ringer's infusion(Linked Group 1) 125 mL/hr, intravenous, Continuous, Starting on 09/12/20 at 2115, Until regular diet. 1650 (New Bag - Provider: Susana Mancini RN)2114 (Canceled Entry - Provider: Susana Mancini RN) 10 (New Bag - Provider: Rashmi Macias RN) PRN Medication Order 09/12/2020 09/13/2020 09/14/2020 HYDROcodone-acetaminophen (NORCO) 5-325 mg per tablet 1 tablet 1 tablet, oral, Every 6 hours PRN, 2nd line for pain, Starting on 09/13/20 at 1316, May administer 1 hour after 1st line agent for uncontrolled or increasing pain. May repeat in 1 hour for uncontrolled or increasing pain. Max 2 doses within 1 dosing interval. Start in 24 hours after Anesthesia no longer covering., Indications: Pain ibuprofen (ADVIL,MOTRIN) tablet 600 mg 600 mg, oral, Every 6 hours PRN, 1st line for pain, Starting on 09/13/20 at 1316, Start in 24 hours after Anesthesia no longer covering., Indications: Pain 1929 (Given - Provider: Rashmi Macias RN) 0906 (Given - Provider: Matilde Andrews RN)1443 (Given - Provider: Cheryl Luis, MEL)1913 (Given - Provider: Joy Huerta, MEL) ketorolac (TORADOL) 15 mg/mL injection 15 mg () 15 mg, intravenous, Every 6 hours PRN, 2nd line for pain, Starting on 09/12/20 at 1641, For 24 hours, Max 4 doses. Anesthesia orders for the first 24 hours ., Indications: Pain 0928 (Given - Provider: Ebony Munoz RN) tdfiano-uqqcm-gkatzah (MMR) 1,000-12,500 TCID50/0.5 mL vaccine 0.5 mL 0.5 mL, subcutaneous, During hospitalization, immunization, Starting on 09/12/20 at 1641, For 1 dose, If not rubella immune. Refrigerate, Indications: Monvnps-Cejzg-Tidrgmp Vaccination ondansetron (ZOFRAN) injection 4 mg(Linked Group 2) 4 mg, intravenous, Administer over 2 Minutes, Every 6 hours PRN, nausea, vomiting, if not tolerating PO, Starting on 09/13/20 at 1316, Start in 24 hours after Anesthesia no longer covering., Indications: Nausea and Vomiting ondansetron ODT (ZOFRAN-ODT) disintegrating tablet 4 mg(Linked Group 2) 4 mg, oral, Every 6 hours PRN, nausea, vomiting, Starting on 09/13/20 at 1316, Start in 24 hours after Anesthesia no longer covering., Indications: Nausea and Vomiting sodium chloride 0.9% flush 0.5-20 mL 0.5-20 mL, intra-catheter, As needed, line care, Starting on 09/12/20 at 1641, Flush volume based on line type and size. Flush before and after each use. , Indications: Flushing Linked Groups Order Group 1: oxytocin 30 unit/500 mL (0.06 unit/mL) in sodium chloride 0.9% (premix) solution () 95-334 milliunits/min (95-334 mL/hr), 0.06 units/mL, intravenous, Titrated, Starting on 09/12/20 at 1715, Until 09/12/20 at 2114, Indications: Hemorrhage Prevention, 334 gideon-units/minutes for 30 minutes then decrease infusion to 95 gideon-units/min for 3.5 hours. , Routine Followed by dextrose 5% and Lactated Ringer's infusionJump to med 125 mL/hr, intravenous, Continuous, Starting on 09/12/20 at 2115, Until regular diet. Group 2: ondansetron ODT (ZOFRAN-ODT) disintegrating tablet 4 mgJump to med 4 mg, oral, Every 6 hours PRN, nausea, vomiting, Starting on 09/13/20 at 1316, Start in 24 hours after Anesthesia no longer covering., Indications: Nausea and Vomiting Or ondansetron (ZOFRAN) injection 4 mgJump to med 4 mg, intravenous, Administer over 2 Minutes, Every 6 hours PRN, nausea, vomiting, if not tolerating PO, Starting on 09/13/20 at 1316, Start in 24 hours after Anesthesia no longer covering., Indications: Nausea and Vomiting documented in this encounter Orders Medications Ordered That Ivan ht Not Have Been Administered Count Last Ordered Date First Ordered Date acetaminophen (TYLENOL) tablet 1,000 mg 1 0 09/12/2020 ceFAZolin (ANCEF) 1 gram/10 mL in sterile water (premix) 2,000 mg 1 09/12/2020 diphenhydrAMINE (BENADRYL) injection 25 mg 1 09/12/2020 HYDROcodone-acetaminophen (N ORCO) 5-325 mg per tablet 1 tablet 1 09/12/2020 dyimmmv-mflho-gkeuloa (MMR) 1,000-12,500 TCID50/0.5 mL vaccine 0.5 mL 1 09/12/2020 nalbuphine (NUBAIN) injection 5 mg 1 2020 naloxone (NARCAN) 0.4 mg/mL injection 0.04-0.4 mg 1 09/12/2020 ondansetron (ZOFRAN) injection 4 mg 2 09/12 ondansetron ODT (ZOFRAN-ODT) disintegrating tablet 4 mg 1 09/12/2020 oxyCODONE (ROXICODONE) tablet 5 mg 1 2020 oxytocin 30 unit/500 mL (0.0 6 unit/mL) in sodium chloride 0.9% (premix) solution 1 09/12/2020 sodium chloride 0.9% flush 0.5-20 mL 4 08/21 Diet Count Last Ordered Date First Orde red Date ADULT DISCHARGE DIET 1 09/14/2020 Nursing Count Last Ordered Date First Orde red Date DISCHARGE ACTIVITY 6 09/14/2020 DISCHARGE CALL PROVIDER 6 09/14/2020 DISCHARGE DRESSING 2 09/14/2020 DISCHARGE INSTRUCTIONS 10 09/14/2020 OTHER FOLLOW UP 1 09/14/2020 Transfer Count Last Ordered Date First Orde red Date TRANSFER PATIENT 1 09/12/2020 CORE MEASURES Count Last Ordered Date First Ord ered Date REASON FOR NO VTE PROPHYLAXIS AT ADMISSION 1 09/12/2020 Case Request Count Last Ordered Date First Orde red Date CASE REQUEST OPERATING ROOM 1 09/12/2020 documented in this encounter Care Teams Pharmacy Informaticist Relationship Specialty Start Date End Date No, Physician PCP - General 04/20/20 06/29/23 Dario Keenan MD [address] [place] [address] Referring Physician Obstetrics and Gynecology 10/23/18 documented as of this encounter
--- OUTSIDE RECORDS SUMMARY | 2024-02-09 16:54 | XMS_ITS | Encounter Summary ---
Author Organization [facility] Address [address] [place] [address] Care Team Providers Care Microwave Oven Assembler Name Role Phone Dario Keenan MD Unavailable [phone] No, Physician Primary Care Provider [phone] Encounter Details Date Type Department Care Team (Late st Contact Info) Description 08/10/2020 Telephone [facility] [address] [place] [address] Dimple Alvarez RN Social History Tobacco Use Types Packs/Day Years [...] Telephone Encounter - Dimple Alvarez RN - 08/10/2020 10:55 AM CDT Error documented in this encounter Plan of Treatment Not on file documented as of this encounter Visit Diagnoses Not on filedocumented in this encounter Care Teams Microwave Oven Assembler Relationship Specialty Start Date End Date No, Physician PCP - General 04/20/20 06/29/23 Dario Keenan MD [address] [place] [address] Referring Physician Obstetrics and Gynecology 10/23/18 documented as of this encounter
--- OUTSIDE RECORDS SUMMARY | 2024-02-09 16:54 | XMS_ITS | Encounter Summary ---
Author Organization [facility] Address [address] [place] [address] Care Team Providers Care Due Diligence Coordinator Name Role Phone Dario Keenan MD Unavailable [phone] No, Physician Primary Care Provider [phone] Encounter Details Date Type Department Care Team (Late st Contact Info) Description 09/12/2020 2:34 PM CDT Anesthesia Event [facility] [address] [place] [address] Juan Luis MD [address] [place] [address] [address] [place] [address] Stan Rao, [facility] [address] [address] [place] [address] Anesthesia Record Procedure Summary Procedure Name Responsible Anesthesiologist Anesthesia Start Time Anesthesia Stop Time REPEAT SECTION (Abdomen) Juan Luis MD 09/12/20 1434 09/12/20 1522 Events Date Time Event Comment 09/12/2020 1427 1434 An Start 1434 An Start Data 1434 In Room 1442 Spinal Placed 1443 Left Uterine Displacement 1443 Anesthesia Ready 1451 Proc Start 1455 Uterine Incision 1456 an kaleigh now 1506 Proc Fin 1511 an stop data 1514 Out of Room 1522 Handoff to RN I completed my handoff to the receiving nurse during which we: 1. Patient identified 2. Responsible provider identified 3. Pertinent medical history reviewed 4. Procedure type and surgical course discussed 5. Intraoperative anesthetic management and any significant issues discussed 6. Expectations and concerns for postop period discussed 7. Questions solicited from receiving nurse 8. Patient disposition at the time of handoff: patient's room 1522 An Stop Meds Name Total bupivacaine 0.75% 1.8 mL with morphine p reservative free 200 mcg solution 2 mL oxytocin 30 Units ondansetron 4 mg ceFAZolin (ANCEF) 1 gram/10 mL in steril e water (premix) 2,000 mg 2,000 mg phenylephrine 250 mcg ePHEDrine 15 mg morphine 10 mg/mL 0.2 mg LR 600 mL * Agents Name O2 * Blood No blood administrations on file. Lines, Drains, and Airways Type Details Placement Removal Peripheral IV Placement Date: 09/12/20; Placement Time: 1045; Orientation: Anterior, Left; Location: Forearm; Inserted by: Abiel Chen RN; Removal Date: 06/30/23; Removal Time: 0505; Removal Reason: Not present on admission 09/12/20 1045 by Susana Chen RN 06/30/23 0505 by Jacinto Kan RN Urethral Catheter Placement Date: 09/12/20; Placement Time: 1445; Inserted by: Cyndi Shannon RN ; Type: Latex; Size: 16 Fr.; Balloon Size: 10 mL; Urine Returned: Yes; Removal Date: 09/13/20; Removal Time: 0909/12/20 1445 by Haylie Shannon RN 09/13/20 0941 by Ebony Munoz RN RETIRED Surgical Site 09/12/20; 1502; Abdomen; 01/23/24 (Retired LDA, Removed/Completed by [facility] with LDA Utility); 1213 (Retired LDA, Removed/Completed by [facility] with LDA Utility) 09/12/20 1502 by Haylie Shannon RN 01/23/24 1213 by Discharge Provider, Automatic documented in this encounter Social History Tobacco Use Types Packs/Day Years [...] on file documented as of this encounter OR Notes * Anesthesia Postprocedure Evaluation - Stan Rao CRNA - 09/12/2020 3:27 PM CDT Patient: Jordyn Shields Procedure Summary Date: 09/12/20 Room / Location: [facility] / [facility] OR Anesthesia Start: 1434 Anesthesia Stop: 1521 Procedure: REPEAT SECTION (N/A Abdomen) Diagnosis: Surgeons: Juan Luis MD Responsible Provider: Juan Luis MD Anesthesia Type: spinal ASA Status: 2 Anesthesia Type: spinal Last vitals BP 127/60 Pulse 67 Temp 36.6 ??C (97.9 ??F) (Oral) Resp 18 SpO2 98% Anesthesia Post Evaluation Patient location during evaluation: floor Patient participation: complete - patient participated Level of consciousness: fully awake Pain score: 0 Pain management: adequate Airway patency: adequate Evidence of recall: yes Cardiovascular status: acceptable Respiratory status: acceptable Hydration status: acceptable Pt is: normothermic Nausea/Vomiting status: none No complications documented. * Anesthesia Procedure Notes - Stan Rao CRNA - 09/12/2020 3:00 PM CDTAssociated Order(s): Spinal Block Spinal Block Patient location: OR Start time: 09/12/2020 2:39 PM End time: 09/12/2020 3:42 PM Reason for block: primary anesthetic Staff: Supervising anesthesiologist: Juan Luis MD Placed by: DALIA:Stan Rao CRNA Procedure prep: Preprocedure checklist: patient identified, procedure contraindications assessed, site marked, procedure consent, surgical consent, IV checked, risks, benefits and alternatives discussed, monitors and equipment checked and timeout performed Patient position: sitting Procedure performed while patient: awake Monitoring: oximetry and blood pressure Prep solution: chlorhexadine/alcohol PPE: provider hat/mask, sterile gloves and sterile drape Skin infiltrated with lidocaine 1%: yes Spinal: Approach: midline Introducer used: yes Location: L4-5 Spinal injection: CSF demonstrated, no aspiration of heme and no paresthesias noted Number of attempts: 2 Spinal Needle: Needle type: Ronald Needle gauge: 24 G Needle length: 9 cm Assessment: Sensory deficit - left: full eval pending Sensory deficit - right: full eval pending Events: patient tolerated procedure well with no complications Transient paresthesia encountered on first attempt. Needle immediately removed and redirected. No paresthesias during second successful attempt. * Anesthesia Preprocedure Evaluation - Stan Rao CRNA - 09/12/2020 10:50 AM CDT Images from the original note were not included. Anesthesia Evaluation Jordyn Shields is a 25 y.o. female * No procedures listed * * No Diagnosis Codes entered * HISTORY HPI Denies family hx of bleeding disorders or anesthetic complications. Denies taking anticoagulants. Past Medical History Neurological Neuro/Psych system: negative Cardiovascular + Hypertension (Gestational) Respiratory Respiratory system: negative Hepatic / Heme + History of anemia Gastrointestinal GI system: negative Renal / Renal/ system: negative Musculoskeletal/Pain Musculoskeletal/Pain system: negative Endocrine / Other Endocrine/Other system: negative Functional Capacity Functional capacity: 6-10 METs Day of Surgery assessments + Possibility of assessed - known to be . Patient Active Problem List Diagnosis ??? hydronephrosis during , antepartum ??? Hx of gestational hypertension ??? Vitamin D deficiency ??? Anemia affecting in third trimester ??? History of delivery History reviewed. No pertinent past medical history. History reviewed. No pertinent surgical history. OB History 2 Para 1 Term 1 AB Living 1 SAB TAB Ectopic Multiple Live Births 1 Allergies Allergen Reactions ??? Amoxicillin Rash ??? Azithromycin Rash ??? Penicillins Rash Taking? Last Dose Start Date End Date Provider cholecalciferol (VITAMIN D-3) 5,000 unit capsule 04/17/20 -- Elias Hurd MD Take one capsule daily with food. No current facility-administered medications for this encounter. Social History Tobacco Use Smoking Status Never Smoker Smokeless Tobacco Never Used Substance and Sexual Activity Alcohol Use Not Currently Substance and Sexual Activity Drug Use Not Currently Family History Problem Relation Age of Onset ??? Cancer Maternal Grandfather Vitals: 09/12/20 1010 09/12/20 1023 09/12/20 1038 BP: 142/96 136/93 135/90 Pulse: 81 77 82 Resp: Temp: PT: No results found for requested labs within last 720 hours. INR: No results found for requested labs within last 720 hours. APTT: No results found for requested labs within last 720 hours. Hgb A1C: No results found for requested labs within last 720 hours. CBC RBC: 09/11/2020: 3.04 M/cumm* RDW: No results found for requested labs within last 720 hours. MCHC: 09/11/2020: 33.3 g/dL MCH: 09/11/2020: 30.3 pg MCV: 09/11/2020: 90.8 fL Hct: 09/11/2020: 27.6 %* Hgb: 09/11/2020: 9.2 g/dL* WBC: 09/11/2020: 9.5 K/cumm MPV: 09/11/2020: 9.7 fL Platelets: 09/11/2020: 219 K/cumm RDW CV: 09/11/2020: 12.6 % RDW Sd: 09/11/2020: 41.1 fL BMP Glucose: 09/11/2020: 87 mg/dL Calcium: 09/11/2020: 8.5 mg/dL Sodium: 09/11/2020: 136 mmol/L Potassium: 09/11/2020: 3.2 mmol/L* CO2: 09/11/2020: 20 mmol/L* Chloride: 09/11/2020: 104 mmol/L BUN: 09/11/2020: 4 mg/dL* Creatinine: 09/11/2020: 0.46 mg/dL* DOS Physical Exam Medical history, medications, and allergies reviewed. Attestation: I endorse the findings of the anesthesia pre-evaluation assessment dated: 09/12/2020. Airway Exam: Mallampati: II Cervical ROM: FROM Cardiovascular Exam: Rate: regular Rhythm: regular Pulmonary Exam: LCTA, bilat Dental Exam: Appears intact Abdominal Exam: (Gravid) Additional comments: NPO > 8 hours Anesthesia Plan ASA 2 Planned anesthesia: Spinal Postoperative Plan: No plan for postoperative opioid use. Patient's planned disposition post procedure is Floor. Informed Consent: Discussed plan with attending. Anesthesia plan and risks discussed with patient. Consent and Attending signature: I and/or my designee have discussed the anesthesia plan, benefits, possible alternatives, parental presence at time of induction (if indicated), and clinically relevant risks that may include dental injury, unintentional awareness, and/or other complications. The patient and/or parent/legal guardian understand, and agree to proceed. All questions answered. documented in this encounter Plan of Treatment Not on file documented as of this encounter Procedures Procedure Name Priority Date/Time Associated Diagnosis Comments ANESTHESIA SPINAL BLOCK Routine 09/12/2020 2:39 PM CDT documented in this encounter Results * Spinal Block (09/12/2020 2:39 PM CDT) Narrative Stan Rao CRNA - 09/12/2020 2:39 PM CDT Stan Rao CRNA ? 09/12/2020 ??3:02 PM Spinal Block Patient location: OR Start time: 09/12/2020 2:39 PM End time: 09/12/2020 3:42 PM Reason for block: primary anesthetic Staff: Supervising anesthesiologist: Juan Luis MD Placed by: CIVIL CAD DESIGNER:Stan Rao CRNA Procedure prep: Preprocedure checklist: patient identified, procedure contraindications assessed, site marked, procedure consent, surgical consent, IV checked, risks, benefits and alternatives discussed, monitors and equipment checked and timeout performed Patient position: sitting Procedure performed while patient: awake Monitoring: oximetry and blood pressure Prep solution: chlorhexadine/alcohol PPE: provider hat/mask, sterile gloves and sterile drape Skin infiltrated with lidocaine 1%: yes Spinal: Approach: midline Introducer used: yes Location: L4-5 Spinal injection: CSF demonstrated, no aspiration of heme and no paresthesias noted Number of attempts: 2 Spinal Needle: Needle type: Ronald Needle gauge: 24 G Needle length: 9 cm Assessment: Sensory deficit - left: full eval pending Sensory deficit - right: full eval pending Events: patient tolerated procedure well with no complications Transient paresthesia encountered on first attempt. Needle immediately removed and redirected. No paresthesias during second successful attempt. us Juan Luis MD ANESTHESIA ORDERABLES Final Result documented in this encounter Visit Diagnoses Not on filedocumented in this encounter Administered Medications Inactive Administered Medications - up to 3 most recent administrations Medication Order MAR Action Action Date Dose Rate Site bupivacaine 0.75% 1.8 mL with morphine preservative free 200 mcg solution intrathecal, Continuous PRN, Starting on 09/12/20 at 1442, Anesthesia Intra-op New Bag 09/12/2020 2:42 PM CDT 2 mL ceFAZolin (ANCEF) 1 gram/10 mL in sterile water (premix) 2,000 mg 2,000 mg, intravenous, at 400 mL/hr, Administer over 3 Minutes, Once preop for OB ONLY, On 09/12/20 at 1300, For 1 dose, L&D Pre-Delivery, Administer within 60 minutes of incision., Indications: Prophylaxis, SurgicalIndications:Prophylaxis, Surgical Given 09/12/2020 2:47 PM CDT 2,000 mg ePHEDrine injection intravenous, Administer over 5 Minutes, As needed, Starting on 09/12/20 at 1453, Anesthesia Intra-op Given 09/12/2020 2:53 PM CDT 15 mg Lactated Ringer's (LR) infusion intravenous, Continuous PRN, Starting on 09/12/20 at 1434, Anesthesia Intra-op New Bag 09/12/2020 2:34 PM CDT morphine injection intravenous, Administer over 4 Minutes, As needed, Starting on 09/12/20 at 1442, Anesthesia Intra-op Given 09/12/2020 2:42 PM CDT 0.2 mg ondansetron (ZOFRAN) injection intravenous, Administer over 2 Minutes, As needed, Starting on 09/12/20 at 1444, Anesthesia Intra-op Given 09/12/2020 2:44 PM CDT 4 mg oxytocin (PITOCIN) injection intravenous, As needed, Starting on 09/12/20 at 1458, Anesthesia Intra-op Given 09/12/2020 2:58 PM CDT 30 Units phenylephrine (CHARLOTTE-SYNEPHRINE) injection intravenous, As needed, Starting on 09/12/20 at 1450, Anesthesia Intra-op Given 09/12/2020 3:04 PM CDT 100 mcg Given 09/12/2020 2:50 PM CDT 150 mcg documented in this encounter Orders Medications Ordered That Ivan ht Not Have Been Administered Count Last Ordered Date First Ordered Date morphine preservative free 2 00 mcg solution 1 09/12/2020 documented in this encounter Care Teams Due Diligence Coordinator Relationship Specialty Start Date End Date No, Physician PCP - General 04/20/20 06/29/23 Dario Keenan MD [address] [place] [address] Referring Physician Obstetrics and Gynecology 10/23/18 documented as of this encounter
--- OUTSIDE RECORDS SUMMARY | 2024-02-09 16:54 | XMS_ITS | Encounter Summary ---
Author Organization [facility] Address [address] [place] [address] Care Team Providers Care Baggage Agent Name Role Phone Dario Keenan MD Unavailable [phone] No, Physician Primary Care Provider [phone] Reason for Visit * Reason Comments Nurse visit BP CHECK PP Encounter Details Date Type Department Care Team (Latest Contact Info) Description 09/24/2020 10:30 AM CDT Clinical Support [facility] [address] [place] [address] [address], [place] [address] Hypertension, unspecified type (Primary Dx) Social History Tobacco Use Types [...] Sign Reading Time Taken Comments Blood Pressure 124/90 09/24/2020 10:37 AM CDT Pulse - - Temperature - - Respiratory Rate - - Oxygen Saturation - - Inhaled Oxygen Concentration - - Weight - - Height - - Body Mass Index - - documented in this encounter Patient Instructions * Patient Instructions* Love Chao MA - 09/24/2020 10:30 AM CDT Patient in office today for post blood pressure check. Patient is taking Labetalol 200mg BID, no headaches or dizziness. Patient states she feels normal. Patient's blood pressure readings recorded and relayed to Mimi STATON. Patient to continue on same dose of Labetalol and have BP check on Monday09/28/2020 Patient aware. Patient advised to contact office with questions or concerns. documented in this encounter Plan of Treatment Not on file documented as of this encounter Visit Diagnoses Diagnosis Hypertension, unspecified type- Primary documented in this encounter Care Teams Baggage Agent Relationship Specialty Start Date End Date No, Physician PCP - General 04/20/20 06/29/23 Dario Keenan MD [address] [place] [address] Referring Physician Obstetrics and Gynecology 10/23/18 documented as of this encounter
--- OUTSIDE RECORDS SUMMARY | 2024-02-09 16:54 | XMS_ITS | Encounter Summary ---
Author Organization [facility] Medical Group Address [address] [address] Care Team Providers Care Ostrich Farm Worker Name Role Phone Dario Keenan MD Unavailable [phone] No, Physician Primary Care Provider [phone] Reason for Referral * Diagnostic Imaging (Routine) - Closed Specialty Diagnoses / Procedures Referred By Contac t Referred To Contact Diagnoses Small for gestational age (SGA) Procedures US Ob Follow Up Elias Hurd MD [address] [place] [address] DR OTERO [address] [place] [address] Phone: tel: fax: Referral ID Status Reason Start Date Expiration Date Visits Re quested Visits Authorized [id number] Closed 08/17/2020 09/16/2021 1 1 Reason for Visit * Reason Comments Ultrasound z36.89 * Diagnostic Imaging (Routine) - Closed Specialty Diagnoses / Procedures Referred By Contac t Referred To Contact Diagnoses Small for gestational age (SGA) Procedures US Ob Follow Up Elias Hurd MD [address] [place] [address] DR OTERO [address] [place] [address] Phone: tel: fax: Referral ID Status Reason Start Date Expiration Date Visits Re quested Visits Authorized [id number] Closed 08/17/2020 09/16/2021 1 1 Encounter Details Date Type Department Care Team (Latest Contact Info) Description 08/17/2020 8:30 AM CDT Clinical Support [facility] [address] [place] [id number] Small for gestational age (SGA) (Primary Dx) Social History Tobacco Use Types [...] on file documented as of this encounter Plan of Treatment Not on file documented as of this encounter Procedures Procedure Name Priority Date/Time Associated Diagnosis Comments US OB FOLLOW UP Schedule Routine, Read Routine (OP Routine) 08/22/2020 6:03 PM CDT Small for gestational age (SGA) documented in this encounter Results * US Ob Follow Up (08/22/2020 6:03 PM CDT) Anatomical Region Laterality Modality Abdomen N/A Ultrasound Narrative 08/22/2020 6:03 PM CDT [facility] Obstetric Ultrasound Date of Exam: 08/17/2020 Diagnoses and all orders for this visit: Small for gestational age (SGA) (Primary) - ? US Ob Follow Up Clinical History: ??Patient presents for repeat OB ultrasound at 33 weeks 4 days secondary to measuring size less than dates. Findings: ??Repeat obstetric ultrasound examination reveals a sherman intrauterine gestation in vertex position. ??FHR is 157 bpm. ?? movement is seen. ??Placenta location is anterior. ??Amnionic fluid volume appears normal with an ZACK of 14.8 cm. biometrics give an AGA of 33 weeks 6 days and an ELDER of 09/29/20. ?? EFW is 5 pounds 2 oz +/- 12oz. ??EFW: 54%. anatomic survey was seen previously. Impression: ??1. ??33 week 6 day AGA by this ultrasound representing normal FARNAZ. ? 2. ??EFW is 5 pounds 2 oz. ? 3. ??ZACK is WNL. Interpreting physician: Elias Hurd MD Obstetrics and Gynecology us Elias Hurd MD IMG OB US PROCEDURES Final Result documented in this encounter Visit Diagnoses Diagnosis Small for gestational age (SGA)- Primary documented in this encounter Care Teams Ostrich Farm Worker Relationship Specialty Start Date End Date No, Physician PCP - General 04/20/20 06/29/23 Dario Keenan MD [address] [place] [address] Referring Physician Obstetrics and Gynecology 10/23/18 documented as of this encounter
--- OUTSIDE RECORDS SUMMARY | 2024-02-09 16:54 | XMS_ITS | Encounter Summary ---
Author Organization [facility] Medical Group Address [address] [facility] [address] [place] [address] Care Team Providers Care Entry Level Electrician Name Role Phone Dario Keenan MD Unavailable No, Physician Primary Care Provider [phone] Reason for Visit * Reason Comments Nurse visit BP and staple remova l Encounter Details Date Type Department Care Team (Late st Contact Info) Description 09/17/2020 10:30 AM CDT Clinical Support [facility] [address] [place] [address] [address] [address] Social History Tobacco Use Types [...] Sign Reading Time Taken Comments Blood Pressure 128/84 09/17/2020 10:39 AM CDT Pulse - - Temperature - - Respiratory Rate - - Oxygen Saturation - - Inhaled Oxygen Concentration - - Weight - - Height - - Body Mass Index - - documented in this encounter Progress Notes * Shannan Jones MA - 09/17/2020 10:30 AM CDT Pt was in office today for a PP BP check along with a staple removal. Pt is currently taking LabetaloL. Pt has already took her LabetaloL one time today. Pts reading were: Rt arm: 124/86 Lt arm: 128/84. Pt denies any headaches or dizziness. Pt states that she is doing well with the medication and feels good. Per Mimi pt is to continue taking the LabetaloL the way that she is currently directed to,and to return in a week for another BP check. Pt is aware and is scheduled. In regards to pts staple removal pts incision site is healing well. Pt tolerated the staple removal well. Steri strips are in place and wound care instructions were given. documented in this encounter Plan of Treatment Not on file documented as of this encounter Visit Diagnoses Not on filedocumented in this encounter Care Teams Entry Level Electrician Relationship Specialty Start Date End Date No, Physician PCP - General 04/20/20 06/29/23 Dario Keenan MD [address] [place] [address] Referring Physician Obstetrics and Gynecology 10/23/18 documented as of this encounter
--- OUTSIDE RECORDS SUMMARY | 2024-02-09 16:54 | XMS_ITS | Encounter Summary ---
Author Organization [facility] Medical Group Address [address] [facility] [address] [place] [address] Care Team Providers Care Warehouse Distribution Manager Name Role Phone Dario Keenan MD Unavailable [phone] No, Physician Primary Care Provider Reason for Visit * Reason Comments Blood Pressure Check PP Encounter Details Date Type Department Care Team (Late st Contact Info) Description 09/30/2020 1:30 PM CDT Clinical Support [facility] [address] [place] [address] [address], [place] [address] Social History Tobacco Use Types [...] Sign Reading Time Taken Comments Blood Pressure 136/88 09/30/2020 1:32 PM CDT Pulse - - Temperature - - Respiratory Rate - - Oxygen Saturation - - Inhaled Oxygen Concentration - - Weight - - Height - - Body Mass Index - - documented in this encounter Progress Notes * Tiff Cummings RN - 09/30/2020 1:30 PM CDT JT at bedside. Pt to continue current medication dose and RTO in 1 week for a repeat BP check. documented in this encounter Plan of Treatment Not on file documented as of this encounter Visit Diagnoses Not on filedocumented in this encounter Care Teams Warehouse Distribution Manager Relationship Specialty Start Date End Date No, Physician PCP - General 04/20/20 06/29/23 Dario Keenan MD [address] [place] [address] Referring Physician Obstetrics and Gynecology 10/23/18 documented as of this encounter
--- OUTSIDE RECORDS SUMMARY | 2024-02-09 16:54 | XMS_ITS | Encounter Summary ---
Author Organization [facility] Medical Group Address [address] [facility] [address] [place] [address] Care Team Providers Care Rig Supervisor Name Role Phone Dario Keenan MD Unavailable [phone] No, Physician Primary Care Provider [phone] Reason for Visit * Reason Comments Routine Visit Encounter Details Date Type Department Care Team (Late st Contact Info) Description 09/04/2020 11:00 AM CDT Routine [facility] [address] [facility] [address] [place] [id number] Adela Garza, DAYANA [address] [facility] [address] [place] [address] Encounter for supervision of other normal in third trimester (Primary Dx); 36 weeks gestation of Social History Tobacco Use [...] Sign Reading Time Taken Comments Blood Pressure 120/72 09/04/2020 11:03 AM CDT Pulse - - Temperature - - Respiratory Rate - - Oxygen Saturation - - Inhaled Oxygen Concentration - - Weight 91.6 kg (202 lb) 09/04/2020 11:03 AM CDT Height - - Body Mass Index 31.64 08/17/2020 9:01 AM CDT documented in this encounter Progress Notes * Adela Garza NP - 09/04/2020 11:00 AM CDT S=D, PTL instructions reviewed; GBS done; no complaints; enc staying hydrated in the hot weather. Cosigned by Elias Hurd MD at 09/09/2020 3:07 PM CDT documented in this encounter Plan of Treatment Not on file documented as of this encounter Procedures Procedure Name Priority Date/Time Associated Diagnosis Comments POCT URINALYSIS DIPSTICK Routine 09/04/2020 11:04 AM CDT Encounter for supervision of other normal in third trimester 36 weeks gestation of CULTURE, GROUP B STREP$WITH SUSCEPTIBILITY Routine 09/04/2020 10:59 AM CDT Encounter for supervision of other normal in third trimester 36 weeks gestation of documented in this encounter Results * POCT urinalysis dipstick (09/04/2020 11:04 AM CDT) Glucose, ur, POC Negative Negative mg/dL Protein, ur, POC Negative Negative Lot Number [id number] Urine 09/04/2020 11:0 4 AM CDT Adela Garza WOOD BOATBUILDER POINT OF CARE TEST ORDERA BLES Final Result * Culture, beta strep, group B, with susceptibility Vaginal/Rectal (09/04/2020 10:59 AM CDT) Strep B culture, resp Negative Negative [facility] - 01 Comment: Centers for Disease Control and Prevention (CDC) and [place] [employer] of Obstetricians and Gynecologists (ACOG) guidelines for prevention of group B streptococcal (GBS) disease specify co-collection of a vaginal and rectal swab specimen to maximize sensitivity of GBS detection. Per the CDC and ACOG, swabbing both the lower vagina and rectum substantially increases the yield of detection compared with sampling the vagina alone. Penicillin G, ampicillin, or cefazolin are indicated for intrapartum prophylaxis of GBS colonization. Reflex susceptibility testing should be performed prior to use of clindamycin only on GBS isolates from penicillin-allergic women who are considered a high risk for anaphylaxis. Treatment with vancomycin without additional testing is warranted if resistance to clindamycin is noted. Vaginal/Rectal 09/04/2020 10 :59 AM CDT 09/04/2020 Narrative [facility] - 09/08/2020 12:10 PM CDT Performed at: ??01 - [facility] [address] ??[id number] Tooling Inspector: Nelson Rodarte PhD, Phone: ??[phone] us Adela Garza WOOD BOATBUILDER LAB MICROBIOLOGY - GENERA L ORDERABLES Final Result [facility] - 01 documented in this encounter Visit Diagnoses Diagnosis Encounter for supervision of other normal in third trimester- Primary 36 weeks gestation of documented in this encounter Care Teams Rig Supervisor Relationship Specialty Start Date End Date No, Physician PCP - General 04/20/20 06/29/23 Dario [place] [place] [address] Referring Physician Obstetrics and Gynecology 10/23/18 documented as of this encounter
--- OUTSIDE RECORDS SUMMARY | 2024-02-09 16:54 | XMS_ITS | Encounter Summary ---
Author Organization [facility] Healthcare Address [address] [place] [address] Care Team Providers Care Shrink Pit Operator Name Role Phone Dario Keenan MD Unavailable [phone] No, Physician Primary Care Provider [phone] Encounter Details Date Type Department Care Team (Late st Contact Info) Description 08/30/2020 - 08/30/2020 10:42 AM CDT Emergency [facility] Emergency Department [address] [place] [address] Discharge Disposition: ED Dismiss - Diverted Elsewhere Social History Tobacco Use Types Packs/Day Years [...] on file documented as of this encounter Medications at Time of Discharge [...] breakfast 30 tablet 2 07/27/2020 1 vit 56-lhdt-[id number]-dh a 27mg iron- 800 mcg-250 mg capsule Take by mouth 1 documented as of this encounter Discharge Disposition Disposition Code Departure Means Destination ED Dismiss - Diverted Elsewhere documented in this encounter Plan of Treatment Not on file documented as of this encounter Visit Diagnoses Not on filedocumented in this encounter Care Teams Shrink Pit Operator Relationship Specialty Start Date End Date No, Physician PCP - General 04/20/20 06/29/23 Dario Keenan MD [address] [place], [place] [id number] Referring Physician Obstetrics and Gynecology 10/23/18 documented as of this encounter
--- OUTSIDE RECORDS SUMMARY | 2024-02-09 16:54 | XMS_ITS | Encounter Summary ---
Author Organization [facility] Medical Group Address [address] [facility] [address] [place] [address] Care Team Providers Care Aerospace Mechanic Name Role Phone Dario Keenan MD Unavailable [phone] No, Physician Primary Care Provider [phone] Reason for Visit * Reason Comments Blood Pressure Check Encounter Details Date Type Department Care Team (Late st Contact Info) Description 11/25/2020 11:00 AM CDT Clinical Support [facility] [address] [place] [address] [address] [address] Social History Tobacco Use Types [...] Sign Reading Time Taken Comments Blood Pressure 126/84 11/25/2020 10:56 AM CDT Pulse - - Temperature - - Respiratory Rate - - Oxygen Saturation - - Inhaled Oxygen Concentration - - Weight - - Height - - Body Mass Index - - documented in this encounter Progress Notes * Tiff Cummings RN - 11/25/2020 11:00 AM CDT Pt called in today c/o increased headaches since last week. Pt was delivered on 09-12-20 via Repeat for pre eclampsia at 37 weeks and 2 days. Pt had her father in law check her BP and it ynz303/90. Pt was brought in the office for a nurse visit and BP were 126/76 and 126/82. Pt was takingBP meds but has been off of them for a while. See telephone encounter on 11-25-20 for further instructions. documented in this encounter Plan of Treatment Not on file documented as of this encounter Visit Diagnoses Not on filedocumented in this encounter Discontinued Medications Medication Sig Discontinue Reason Start Date End Da te cholecalciferol (VITAMIN D-3) 5,000 unit capsule Take one capsule daily with food. Therapy completed 04/17/2020 11/25/2020 vit-iron fum-folic ac 27 mg iron- 0.8 mg tabletIndications:Vitami n Deficiency Prevention Take 1 tablet by mouth daily Therapy completed 09/15/2020 11/25/2020 documented as of this encounter Care Teams Aerospace Mechanic Relationship Specialty Start Date End Date No, Physician PCP - General 04/20/20 06/29/23 Dario Keenan MD [address] [place] [address] Referring Physician Obstetrics and Gynecology 10/23/18 documented as of this encounter
--- OUTSIDE RECORDS SUMMARY | 2024-02-09 16:54 | XMS_ITS | Encounter Summary ---
Author Organization [facility] Healthcare Address [address] [place] [address] Care Team Providers Care Motion Study Engineer Name Role Phone Dario Keenan MD Unavailable [phone] No, Physician Primary Care Provider [phone] Encounter Details Date Type Department Care Team (Late st Contact Info) Description 07/24/2020 11:30 AM CDT [address] Elias Hurd MD [address] [place] [address] Encounter for supervision of other normal in second trimester Discharge Disposition: Discharge to home or self [...] on file documented as of this encounter Discharge Disposition Disposition Code Departure Means Destination Discharge to home or self care documented in this encounter Miscellaneous Notes * Result Encounter Note - Elias Hurd MD - 07/26/2020 4:00 PM CDT Please call patient with results. Recommend iron daily. Also, continue vit. D with food. documented in this encounter Plan of Treatment Not on file documented as of this encounter Procedures Procedure Name Priority Date/Time Associated Diagnosis Comments DIFFERENTIAL AUTO Routine 07/24/2020 11: 25 AM CDT Encounter for supervision of other normal in second trimester GTT 50GM 1HR GESTATIONAL SCREEN Routine 07/24/2020 11:25 AM CDT Encounter for supervision of other normal in second trimester HIV 1/2 ANTIBODY PLUS P24 ANTIGEN Routine 07/24/2020 11:25 AM CDT Encounter for supervision of other normal in second trimester CBC WITH AUTO DIFFERENTIAL Routine 07/24/2020 11:25 AM CDT Encounter for supervision of other normal in second trimester VITAMIN D 25 HYDROXY Routine 07/24/2020 11:25 AM CDT Encounter for supervision of other normal in second trimester HSV 2 ANTIBODY, IGG Routine 07/24/2020 1 1:25 AM CDT Encounter for supervision of other normal in second trimester HSV 1 ANTIBODY, IGG Routine 07/24/2020 1 1:25 AM CDT Encounter for supervision of other normal in second trimester RPR Routine 07/24/2020 11:25 AM CDT Encounter for supervision of other normal in second trimester documented in this encounter Results * Differential, auto (07/24/2020 11:25 AM CDT) Neutrophil abs 5.2 1.7 - 6.5 K/cumm [facility] ([place]) Imm gran abs 0.0 0.0 - 0.1 K/cumm [facility] ([place]) Lymphocyte abs 2.5 0.8 - 3.3 K/cumm [facility] ([place]) Monocyte abs 0.4 0.2 - 0.8 K/cumm [facility] ([place]) Eosinophil abs 0.1 0.0 - 0.5 K/cumm [facility] ([place]) Basophil abs 0.0 0.0 - 0.1 K/cumm [facility] ([place]) Neutrophil pct 63.6 % [facility] ([place]) Comment: Interpretive [...] was last revised on 2017. Lymphocyte pct 30.0 % [facility] ([place]) Comment: Interpretive Data Percent cell count reference ranges are not reported, since discordance with absolute values may lead to misinterpretation of CBC data. Current Interpretive Data was last revised on 2017. Monocyte pct 5.1 % [facility] ([place]) Comment: Interpretive Data [...] was last revised on 2017. Basophil pct 0.2 % [facility] ([place]) Comment: Interpretive Data Percent cell count reference ranges are not reported, since discordance with absolute values may lead to misinterpretation of CBC data. Current Interpretive Data was last revised on 2017. Blood specimen (specimen) 07/24/2020 11:25 AM CDT 07/24/2020 1:21 PM CDT us Elias Hurd MD LAB BLOOD ORDERABLES Final Result [facility] ([place]) 1 [facility] Department [place] [address] * RPR (07/24/2020 11:25 AM CDT) RPR Nonreactive Nonreactive [facility] ([place]) Comment:Testing performed by : [facility], [address] [place]., [address] Blood specimen (specimen) 07/24/2020 11:25 AM CDT 07/24/2020 6:56 PM CDT Elias Hurd MD LAB MICROBIOLOGY - GENERAL ORDERABLES Final Result Performing Organization Address [facility] Co de Phone Number [facility] ([place]) 1 [facility] [place] [address] * HSV 2 IgG Antibody Blood (07/24/2020 11:25 AM CDT) HSV 2 IgG Nonreactive Nonreactive [facility] ([place]) Comment: Interpretive Data 1. Negative: No detectable IgG antibody to HSV-2. 2. Equivocal: Presence or absence of detectable antibodies to HSV-2 cannot be determined and the test should be repeated. 3. 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 Current interpretive data was last revised on 2016. Testing performed by: [facility], [address] [place] [address]., [id number] Blood specimen (specimen) 07/24/2020 11:25 AM CDT 07/24/2020 3:34 PM CDT Elias Hurd MD LAB MICROBIOLOGY - GENERAL ORDERABLES Final Result Performing Organization Address [facility] Co de Phone Number [facility] ([place]) 1 [facility] [place] [address] * (ABNORMAL) HSV 1 IgG Antibody Blood (07/24/2020 11:25 AM CDT) HSV 1 IgG Reactive( A) Nonreactive [facility] ([place]) Comment: Interpretive Data 1. Nonreactive: No detectable IgG antibody to HSV-1. 2. Equivocal: Presence or absence of detectable antibodies to HSV-1 cannot be determined and the test should be repeated. 3. Reactive: Indicates presence of detectable IgG antibody to HSV-1. Current interpretive data was last revised on 2016. Testing performed by: [facility], [address] [place] [address]., [id number] Blood specimen (specimen) 07/24/2020 11:25 AM CDT 07/24/2020 3:34 PM CDT Elias Hurd MD LAB MICROBIOLOGY - GENERAL ORDERABLES Final Result Performing Organization Address [facility] de Phone Number [facility] ([place]) 1 [facility] [place] [address] * HIV 1/2 Antibody plus p24 Antigen (07/24/2020 11:25 AM CDT) HIV 1/2 ab + p24 ag Nonreactive Nonreactive [facility] ([place]) Comment: Nonreactive for HIV-1 antigen and HIV-1/HIV-2 antibodies. No laboratory evidence of HIV infection. If acute HIV infection is suspected, consider testing for HIV-1 RNA. Testing performed by: [facility], [address] [place]., [address] Blood specimen (specimen) 07/24/2020 11:25 AM CDT 07/24/2020 3:34 PM CDT Elias Hurd MD LAB MICROBIOLOGY - GENERAL ORDERABLES Final Result Performing Organization Address [facility] de Phone Number [facility] ([place]) [address] [facility] [place] [address] * Glucose tolerance testing 50 gram gestational screen (07/24/2020 11:25 AM CDT) GTT 50g gest screen 119 <=140 mg/dL [facility] ([place]) Comment: Interpretive Data Used for suspected gestational diabetes. The screening test uses 50 grams of glucose with sample obtained 1 hr later. Normal range: < 140 mg/dL. A glucose value of >140 mg/dL generally indicates the need for a full diagnostic tolerance test. Reference Interval Info: Diabetes Care 2005, Vol 28. Supplement 1,S37-S42. Report of the Expert Committee on the Diagnosis and Classification of Diabetes Mellitus. Diabetes Care 2020; 43(Supplement 1):S14-31. Current interpretive data was last revised on 2020. Blood specimen (specimen) 07/24/2020 11:25 AM CDT 07/24/2020 1:21 PM CDT Elias Hurd MD LAB BLOOD ORDERABLES Final Result [facility] ([place]) 1 [facility] Department [place] [address] * (ABNORMAL) CBC with auto differential (07/24/2020 11:25 AM CDT) WBC 8.2 3.8 - 9.9 K/cumm [facility] ([place]) Hgb 10.3(L) 11.9 - 15.5 g/dL [facility] ([place]) Hct 30.4(L) 35.6 - 45.5 % [facility] ([place]) Plt 221 150 - 400 K/cumm [facility] ([place]) MPV 9.9 9.1 - 12.3 fL [facility] ([place]) RBC 3.13(L) 3.90 - 5.20 M/cumm [facility] ([place]) MCV 97.1(H) 81.3 - 96.4 fL [facility] ([place]) MCH 32.9 27.1 - 33.3 pg [facility] ([place]) MCHC 33.9 32.3 - 35.7 g/dL [facility] ([place]) RDW CV 12.8 11.1 - 14.9 % [facility] ([place]) RDW SD 44.8 35.7 - 48.1 fL [facility] ([place]) NRBC abs 0.02(H) 0.00 - 0.01 K/cumm [facility] ([place]) Blood specimen (specimen) 07/24/2020 11:25 AM CDT 07/24/2020 1:21 PM CDT Elias Hurd MD LAB BLOOD ORDERABLES Final Result [facility] ([place]) 1 [facility] [place] [address] * (ABNORMAL) Vitamin D 25 hydroxy (07/24/2020 11:25 AM CDT) Vitamin D 25-OH 25(L) 30 - 80 ng/mL [facility] ([place]) Blood specimen (specimen) 07/24/2020 11:25 AM CDT 07/24/2020 1:21 PM CDT us Elias Hurd MD LAB BLOOD ORDERABLES Final Result Performing Organization Address City/[facility]/ZIP Co de Phone Number [facility] ([place]) 1 [facility] [place] [address] documented in this encounter Visit Diagnoses Diagnosis Encounter for supervision of other normal in second trimester documented in this encounter Care Teams Motion Study Engineer Relationship Specialty Start Date End Date No, Physician PCP - General 04/20/20 06/29/23 Dario Keenan MD [address] [place] [address] Referring Physician Obstetrics and Gynecology 10/23/18 documented as of this encounter
--- OUTSIDE RECORDS SUMMARY | 2024-02-09 16:54 | XMS_ITS | Encounter Summary ---
Author Organization [facility] Address [address] [place] [address] Care Team Providers Care Manager Primary Name Role Phone Dario Keenan MD Unavailable [phone] No, Physician Primary Care Provider Reason for Visit * Reason Onset Date Comments PP BP Readings 10/09/2020 Encounter Details Date Type Department Care Team (Late st Contact Info) Description 10/09/2020 Telephone [email or web address] [facility] [address] [facility] [address] [place] [address] Tiff Cummings RN PP BP Readings Social History Tobacco Use Types Packs/Day Years [...] Telephone Encounter - Tiff Cummings RN - 10/14/2020 8:44 AM CDT Pt called back. She did stop her BP med on Monday and is coming in tomorrow for a BP check. * Telephone Encounter - Tiff Cummings RN - 10/12/2020 9:57 AM CDT Attempted to call, VM not set up. * Telephone Encounter - Tiff Cummings RN - 10/09/2020 1:48 PM CDT LMOM for pt to call office. * Telephone Encounter - Elias Hurd MD - 10/09/2020 1:29 PM CDT Stop Medicine Monday and come for bP check on Mon. Thanks. * Telephone Encounter - Tiff Cummings RN - 10/09/2020 10:08 AM CDT Pt in the office today for PP BP check. Her BPs were 122/80 and 118/78. She is still taking Labetalol 200 mg BID and feeling well. Please advise. Thanks! documented in this encounter Plan of Treatment Not on file documented as of this encounter Visit Diagnoses Not on filedocumented in this encounter Care Teams Manager Primary Relationship Specialty Start Date End Date No, Physician PCP - General 04/20/20 06/29/23 Dario Keenan MD [address] [place] [address] Referring Physician Obstetrics and Gynecology 10/23/18 documented as of this encounter
--- OUTSIDE RECORDS SUMMARY | 2024-02-09 16:54 | XMS_ITS | Encounter Summary ---
Author Organization [facility] Address [address] [place] [address] Care Team Providers Care Ammunition Assembly Laborer Name Role Phone Dario Keenan MD Unavailable [phone] No, Physician Primary Care Provider [phone] Encounter Details Date Type Department Care Team (Late st Contact Info) Description 09/12/2020 2:30 PM CDT - 09/12/2020 3:50 PM CDT Surgery [facility] [address] [place] [address] Juan Luis MD [address] [place] [address] [place] [address] REPEAT SECTION Surgery Details Date/Time Status Location OR Service Patient Class Case Class Case Type Trauma Case? 09/12/2020 2:30 PM Posted [facility] L&D OR C-Secti on Room Obstetrics / Gynecology Inpatient Urgent - 6 hours Panel 1 Procedure LRB Anes Op Region Wound Class Comments REPEAT SECTION N/A Epidural Abdomen Class II - Clean Contaminated Surgeon Surgeon Role Service Panel Juan Luis MD Primary Obstetrics / Gynecology 1 documented in this encounter Social History Tobacco [...] Sign Reading Time Taken Comments Blood Pressure 131/76 09/12/2020 3:47 PM CDT Pulse 55 09/12/2020 3:48 PM CDT Temperature 36.6 ??C (97.9 ??F) 09/12/2020 3:21 PM CD T Respiratory Rate 18 09/12/2020 3:21 PM CDT Oxygen Saturation 96% 09/12/2020 3:47 PM CDT Inhaled Oxygen Concentration - - Weight 91.6 kg (202 lb) 09/12/2020 10:03 AM CDT Height 170.2 cm (5' 7 ) 09/12/2020 10:03 AM CDT Body Mass Index 31.64 09/12/2020 10:03 AM CDT documented in this encounter Discharge Summaries * [...] Care Everywhere. * Self Care After Delivery (Egg Tester) (Divehi) documented in this encounter Medications at Time [...] Huerta RN - 09/14/2020 8:00 PM CDT placed in car seat and carried to [...] Results * eGFR (09/12/2020 9:49 PM CDT) eGFR 138 mL/min/1.7 3 m2 DORI GAMA ([place]) Comment: Interpretive Data Reference Interval Normal ?>/= [...] BLOOD ORDERABLES F inal Result DORI LANETTE ([place]) 1 [facility] Department [place] [address] * (ABNORMAL) Differential, auto (09/12/2020 9:49 PM CDT) Pathologist [facility] Neutrophil abs 9.1(H) 1.7 - 6.5 K/cumm [...] ORDERABLES F inal Result Performing Organization Address City/[facility] Co de Phone Number DORI GAMA ([place]) 1 [facility] [place] [address] * Uric acid (09/12/2020 9:49 PM CDT) Uric acid 3.7 2.5 - 7.0 mg/dL [facility] ([place]) Blood specimen (specimen) 09/12/2020 9:49 PM CDT 09/12/2020 10:00 PM CDT Juan Luis MD LAB BLOOD ORDERABLES F inal Result Performing Organization Address [facility] de Phone Number DORI GAMA ([place]) 1 [facility] [place] [address] * Lactate dehydrogenase (LD) (09/12/2020 9:49 PM CDT) Lactate dehydrogenase (LDH) 196 100 - 250 Units/L [facility] ([place]) Blood specimen (specimen) 09/12/2020 9:49 PM CDT 09/12/2020 10:00 PM CDT Juan Luis MD LAB BLOOD ORDERABLES F inal Result Performing Organization Address [facility] Co de Phone Number DORI GAMA ([place]) 1 [facility] [place] [address] * (ABNORMAL) Comprehensive metabolic panel (09/12/2020 9:49 PM CDT) Sodium 137 135 - 145 mmol/L [facility] ([place]Y) Potassium, pl 3.2(L) 3.3 - 4.9 mmol/L [facility] ([place]) Chloride 105 97 - 110 mmol/L [facility] ([place]) CO2 22 22 - 32 mmol/L [...] F inal Result DORI [facility] ([place]) 1 [facility] Department [place] [address] * (ABNORMAL) CBC with auto differential (09/12/2020 [...] F inal Result CERNER [facility] ([place]) 1 [facility] Department [place] [address] * (ABNORMAL) Differential, auto (09/12/2020 11:27 AM [...] BLOOD ORDERABLES F inal Result DORI LANETTE ([place]) 1 [facility] Department [place] [address] * Antibody screen (09/12/2020 11:27 AM CDT) Demarco, indirect, Gel Interpretation Negative ABSC [facility]I [facility] ([place]) Blood specimen (specimen) 09/12/2020 11:27 AM CDT 09/12/2020 11:42 AM CDT Narrative DORI [facility] ([place]) - 09/12/2020 12:35 PM CDT Has the patient had Daratumumab or Isatuximab in the past 6 months?->Unknown Juan Luis MD LAB BLOOD BANK TEST OR DERABLES Final Result Performing Organization Address City/[facility] Hospital/ZIP Co de Phone Number DORI [facility] ([place]) 1 [facility] [place] [address] * ABO/Rh (09/12/2020 11:27 AM CDT) Pathologist [facility] ABO/Rh AB Positive DORI Montesinos ([place]) Blood specimen (specimen) 09/12/2020 11:27 AM CDT 09/12/2020 11:42 AM CDT Narrative DORI [facility] ([place]) - 09/12/2020 12:35 PM CDT Has the patient had Daratumumab or Isatuximab in the past 6 months?->Unknown Juan Luis MD LAB BLOOD BANK TEST OR DERABLES Final Result Performing Organization Address City/[facility] Co de Phone Number [facility] ([place]) 1 [facility] [place] [address] * (ABNORMAL) CBC with auto differential (09/12/2020 11:27 AM CDT) WBC 10.2(H) 3.8 - 9.9 K/cumm [facility]I [facility] ([place]) Hgb 10.0(L) 11.9 - 15.5 g/dL [facility] ([place]) Hct 30.1(L) 35.6 - 45.5 % [facility] ([place]) Plt 235 150 - 400 K/cumm [facility] ([place]) MPV 10.0 9.1 - 12.3 fL [facility] ([place]) RBC 3.33(L) 3.90 - 5.20 M/cumm DORI GAMA ([place]) MCV 90.4 81.3 - 96.4 fL DORI GAMA ([place]) MCH 30.0 27.1 - 33.3 pg DORI GAMA ([place]) MCHC 33.2 32.3 - 35.7 g/dL DORI GAMA ([place]) RDW CV 12.7 11.1 - 14.9 % DORI GAMA ([place]) RDW SD 41.1 35.7 - 48.1 fL DORI GAMA ([place]) NRBC abs 0.00 0.00 - 0.01 K/cumm DORI GAMA ([place]) Blood specimen (specimen) 09/12/2020 11:27 AM CDT 09/12/2020 11:42 AM CDT us Juan Luis MD LAB BLOOD ORDERABLES F inal Result DORI GAMA ([place]) 1 [facility] Department [place] [address] documented in this encounter Visit Diagnoses Not [...] Given 09/14/2020 9:06 AM CDT 600 mg labetaloL (NORMODYNE,TRANDATE) tablet 200 mg 200 mg, oral, 2 times daily, First dose on 09/13/20 at 1545 Given 09/14/2020 9:06 AM CDT 200 mg Given 09/13/2020 3:53 PM CDT 200 mg ondansetron (ZOFRAN) injection 4 mg 4 mg, [...] Prophylaxis, Surgical 1447 (Given - Provider: Stan Rao DALIA) docusate sodium (COLACE) capsule 100 mg 100 mg, oral, 2 times daily, First dose on 09/12/20 at 2100, Hold if diarrhea., Indications: constipation, Stool Softener 2129 (Not Given - Provider: Rashmi Macias, MEL - Reason: Other) 927 (Given - Provider: Ebony Munoz, MEL)2133 (Given - Provider: Joy Huerta, MEL) 905 (Given - Provider: Matilde Andrews, MEL) labetaloL (NORMODYNE,TRANDATE) injection 20 mg (COMPLETED) 20 mg, intravenous, at 120 mL/hr, Administer over 2 Minutes, Once, On 09/12/20 at 2200, For 1 dose 2125 (Given - Provider: Rashmi Macias RN)2129 (Due) labetaloL (NORMODYNE,TRANDATE) tablet 200 mg 200 mg, oral, 2 times daily, First dose on 09/13/20 at 1545 1553 (Given - Provider: Ebony Munoz RN) 905 (Given - Provider: Matilde Andrews RN) labetaloL (NORMODYNE,TRANDATE) tablet 200 mg (COMPLETED) 200 [...] Prevention 1642 (Not Given - Provider: Susana Mancini, RN - Reason: Contraindicated) 927 (Given - Provider: Ebony Munoz RN) 905 (Given - Provider: Matilde Andrews RN) sodium chloride 0.9% flush 0.5-20 mL 0.5-20 mL, intra-catheter, Every 8 hours scheduled, First dose on 09/12/20 at 1715, Flush volume based on line type and size. , Indications: Flushing 1643 (Not Given - Provider: Susana Mancini RN - Reason: IV Infusing)2200 (Due) 0600 (Due)1400 (Due)2200 (Due) 0600 (Due)1400 (Due) Continuous Medication Order 09/12/2020 09/13/2020 09/14/2020 dextrose 5% and Lactated Ringer's infusion(Linked Group 1) 125 mL/hr, intravenous, Continuous, Starting on 09/12/20 at 2115, Until regular diet. 1650 (New Bag - Provider: Susana Mancini, MEL)2115 (Canceled Entry - Provider: Susana Mancini, MEL) 0011 (New Bag - Provider: Rashmi Macias RN) [...] Matilde Andrews RN)1443 (Given - Provider: Cheryl Luis RN)1913 (Given - Provider: Joy Huerta RN) ketorolac (TORADOL) 15 mg/mL injection 15 mg () 15 mg, intravenous, Every 6 hours PRN, 2nd line for pain, Starting on 09/12/20 at 1641, For 24 hours, Max 4 doses. Anesthesia orders for the first 24 hours ., Indications: Pain 0928 (Given - Provider: Ebony Munoz RN) uhwugtt-kvren-urrnhuj (MMR) 1,000-12,500 TCID50/0.5 mL vaccine 0.5 mL 0.5 mL, subcutaneous, During hospitalization, immunization, Starting on 09/12/20 at 1641, For 1 dose, If not rubella immune. Refrigerate, Indications: Pjkgmrq-Hcrry-Xnbjyvu Vaccination ondansetron (ZOFRAN) injection 4 mg(Linked Group [...] Count Last Ordered Date First Ordered Date labetaloL (NORMODYNE,TRANDAT E) tablet 200 mg 2 09/13/2020 acetaminophen (TYLENOL) tablet 1,000 mg 1 0 09/12/2020 ceFAZolin (ANCEF) 1 gram/10 mL in sterile water (premix) 2,000 mg 1 09/12/2020 dextrose 5% and Lactated Ringer's infusion 1 09/12/2020 diphenhydrAMINE (BENADRYL) injection 25 mg 1 09/12/2020 docusate sodium (COLACE) capsule 100 mg 1 0 09/12/2020 HYDROcodone-acetaminophen (N ORCO) 5-325 mg per tablet 1 tablet 1 09/12/2020 ibuprofen (ADVIL,MOTRIN) tablet 600 mg 1 ketorolac (TORADOL) 15 mg/mL injection 15 mg 1 09/12/2020 labetaloL (NORMODYNE,TRANDAT E) injection 20 mg 1 09/12/2020 Lactated Ringer's (LR) bolus 2,000 mL 1 slklaqa-lwctp-xixbjkz (MMR) 1,000-12,500 TCID50/0.5 mL vaccine 0.5 mL 1 09/12/2020 nalbuphine (NUBAIN) injection 5 mg 1 2020 naloxone (NARCAN) 0.4 mg/mL injection 0.04-0.4 mg 1 09/12/2020 ondansetron (ZOFRAN) injection 4 mg 2 09/12 ondansetron ODT (ZOFRAN-ODT) disintegrating tablet 4 mg 1 09/12/2020 oxyCODONE (ROXICODONE) tablet 5 mg 1 2020 oxytocin 30 unit/500 mL (0.0 6 unit/mL) in sodium chloride 0.9% (premix) solution 1 09/12/2020 vit-iron fum-folic ac tablet 1 tablet 1 09/12/2020 sodium chloride 0.9% flush 0.5-20 [...] 09/12/2020 documented in this encounter Care Teams Ammunition Assembly Laborer Relationship Specialty Start Date End Date No, Physician PCP - General 04/20/20 06/29/23 Dario Keenan MD [address] [place] [address] Referring Physician Obstetrics and Gynecology 10/23/18 documented as of this encounter
--- OUTSIDE RECORDS SUMMARY | 2024-02-09 16:54 | XMS_ITS | Encounter Summary ---
Author Organization [facility] Address [address] [place] [address] Care Team Providers Care Cloth Designer Name Role Phone Dario Keenan MD Unavailable [phone] No, Physician Primary Care Provider [phone] Reason for Visit * Reason Onset Date Comments PP BP Check 10/15/2020 Encounter Details Date Type Department Care Team (Late st Contact Info) Description 10/15/2020 Telephone [facility] [address] [facility] [address] [place] [address] Tiff Cummings, RN PP BP Check Social History Tobacco Use Types Packs/Day Years [...] Telephone Encounter - Tiff Cummings RN - 10/16/2020 8:39 AM CDT Pt aware. * Telephone Encounter - Elias Hurd MD - 10/15/2020 5:15 PM CDT Bps look good off meds. Ok to keep pp appointment. Call if problems. * Telephone Encounter - Tiff Cummings RN - 10/15/2020 8:31 AM CDT Pt in the office today for PP BP check after stopping Latbetalol on 10-12-20. Pt feeling well and BPremain WNL. 124/84 and 122/80. Pt has a PPV on 10-30-20. Follow up any sooner? Please advise. Thanks! documented in this encounter Plan of Treatment Not on file documented as of this encounter Visit Diagnoses Not on filedocumented in this encounter Care Teams Cloth Designer Relationship Specialty Start Date End Date No, Physician PCP - General 04/20/20 06/29/23 Dario Keenan MD [address] [place] [address] Referring Physician Obstetrics and Gynecology 10/23/18 documented as of this encounter
--- OUTSIDE RECORDS SUMMARY | 2024-02-09 16:55 | XMS_ITS | Encounter Summary ---
Author Organization [facility] Address [address] [place] [address] Care Team Providers Care Commercial Relationship Manager Name Role Phone No, Physician Primary Care Provider [phone] Dario Keenan MD Unavailable [phone] Reason for Visit * Reason Onset Date Comments Vomiting 02/24/2020 Encounter Details Date Type Department Care Team (Late st Contact Info) Description 02/24/2020 Telephone [facility] [address] [place] [address] [address], [place] [address] Shannan Jones MA Vomiting Social History Tobacco Use Types Packs/Day Years Used Date Smoking Tobacco: Never Assessed Comments No Sex and Gender Information Value Date Recorded Sex Assigned at Not on file Legal Sex Female 3:29 PM CDT Gender Identity Not on file Sexual Orientation Not on file documented as of this encounter Miscellaneous Notes * Telephone Encounter - Shannan Jones MA - 02/24/2020 9:53 AM CST Pt has a new OB appt with Mimi on 03/13/2020. Pt called C/O having constipation last Monday for a couple days and stated that she took miralax which fixed that problem for her. Pt has been vomiting and having nausea since yesterday. Pt states that she cannot hold anything down and feels so weak and cannot stop getting sick. I informed pt due to us never seeing her for an office visit, that we cannot do anything to treat her. Pt is informed to go to [facility] unless she hasn't been able to hold down anyfluids in the last 24 hrs , in that case she needs to go to the ER to get IV fluids. Pt voiced understanding and stated that she would go ahead and do that. WARE SPECIALIST documented in this encounter Plan of Treatment Not on file documented as of this encounter Visit Diagnoses Not on filedocumented in this encounter Care Teams Commercial Relationship Manager Relationship Specialty Start Date End Date No, Physician PCP - General 07/27/18 04/16/20 Dario Keenan MD [address] [place] [address] Referring Physician Obstetrics and Gynecology 10/23/18 documented as of this encounter
--- OUTSIDE RECORDS SUMMARY | 2024-02-09 16:55 | XMS_ITS | Encounter Summary ---
Author Organization [facility] Address [address] [place] [address] Phone Care Team Providers Care Trash Truck Driver Name Role Phone No, Physician Primary Care Provider [phone] Reason for Visit * Diagnostic Imaging (Routine) - Closed Specialty Diagnoses / Procedures Referred By Contac t Referred To Contact Diagnoses Encounter for anatomic survey Procedures US OB Detail Anatomy Single Or First Gestation Irina Monique MD Phone: tel: fax: [facility] (All Locations) Referral ID Status Reason Start Date Expiration Date Visits Re quested Visits Authorized [id number] Closed 08/02/2018 02/11/2020 1 1 Encounter Details Date Type Department Care Team (Latest Contact Info) Description 08/20/2018 10:00 AM CDT Ancillary Procedure [facility] Obstetrics and Gynecology [address] [place] [address] Encounter for anatomic survey Social History Tobacco Use Types Packs/Day Years Used Date Smoking Tobacco: Never Assessed Comments Yes Sex and Gender Information Value Date Recorded Sex Assigned at Not on file Legal Sex Female 3:29 PM CDT Gender Identity Not on file Sexual Orientation Not on file documented as of this encounter Plan of Treatment Not on file documented as of this encounter Procedures Procedure Name Priority Date/Time Associated Diagnosis Comments US OB DETAIL ANATOMY SINGLE OR FIRST GESTATION Schedule Routine, Read Routine (OP Routine) 08/20/2018 9:46 AM CDT Encounter for anatomic survey documented in this encounter Results * US OB Detail Anatomy Single Or First Gestation (08/20/2018 9:46 AM CDT) Placenta Details posterior, Previa-no VIEWPOINT Estimated Weight 1,630 g&grams VIEWPOINT Presentation Vertex VIEWPOINT Fetus# Fetus1 VIEWPOINT Anatomical Region Laterality Modality Body N/A Ultrasound 08/20/2018 10:4 7 AM CDT us Irina Monique MD IMG OB US PROCEDURES Final R esult documented in this encounter Visit Diagnoses Diagnosis Encounter for anatomic survey documented in this encounter Care Teams Trash Truck Driver Relationship Specialty Start Date End Date No, Physician PCP - General 07/27/18 04/16/20 documented as of this encounter
--- OUTSIDE RECORDS SUMMARY | 2024-02-09 16:55 | XMS_ITS | Encounter Summary ---
Author Organization [facility] Address [address] [place] [address] Phone Care Team Providers Care Miniature Set Designer Name Role Phone No, Physician Primary Care Provider [phone] Reason for Visit * Diagnostic Imaging (Routine) - Closed Specialty Diagnoses / Procedures Referred By Contac t Referred To Contact Diagnoses , supervision for, high-risk, unspecified trimester Procedures US OB Limited Dario Keenan MD Phone: tel: fax: [facility] (All Locations) Referral ID Status Reason Start Date Expiration Date Visits Re quested Visits Authorized [id number] Closed 08/22/2018 03/02/2020 1 1 Encounter Details Date Type Department Care Team (Latest Contact Info) Description 09/10/2018 9:00 AM CDT Ancillary Procedure [facility] Obstetrics and Gynecology [address] [place] [address] , supervision for, high-risk, unspecified trimester Social History Tobacco Use Types Packs/Day Years [...] Priority Date/Time Associated Diagnosis Comments US OB LIMITED Schedule Routine, Read Routine (OP Routine) 09/10/2018 9:13 AM CDT , supervision for, high-risk, unspecified trimester documented in this encounter Results * US OB Limited (09/10/2018 9:13 AM CDT) Placenta Details posterior, Previa-no VIEWPOINT Estimated Weight 2,055 g&grams VIEWPOINT Presentation Vertex VIEWPOINT Fetus# Fetus1 VIEWPOINT Anatomical Region Laterality Modality Abdomen N/A Ultrasound 09/10/2018 9:45 AM CDT us Dario Keenan MD IMG OB US PROCEDURES Final Re sult documented in this encounter Visit Diagnoses Diagnosis , supervision for, high-risk, unspecified trimester documented in this encounter Care Teams Miniature Set Designer Relationship Specialty Start Date End Date No, Physician PCP - General 07/27/18 04/16/20 documented as of this encounter
--- OUTSIDE RECORDS SUMMARY | 2024-02-09 16:55 | XMS_ITS | Encounter Summary ---
Author Organization [facility] Address [address] [place] [address] Phone Care Team Providers Care Elementary Supervisor Name Role Phone No, Physician Primary Care Provider [phone] Encounter Details Date Type Department Care Team (Late st Contact Info) Description 08/02/2018 Telephone [facility] Obstetrics and Gynecology [address] [place] [id number] Clinic, [facility] Lav Crewman Social History Tobacco Use Types Packs/Day Years Used Date Smoking Tobacco: Never Assessed Comments Unknown Sex and Gender Information Value Date Recorded Sex Assigned at Not on file Legal Sex Female 3:29 PM CDT Gender Identity Not on file Sexual Orientation Not on file documented as of this encounter Miscellaneous Notes * Telephone Encounter - Peter Betancur - 08/02/2018 12:39 PM CDT PT HAS A VM BOX THAT HASN'T BEEN SET UP YET, MAILED PT APT TIME AND U/S PACKET. I EMAILED RIGOBERTO REGARDING PATIENT DATE AND TIME documented in this encounter Plan of Treatment Not on file documented as of this encounter Visit Diagnoses Not on filedocumented in this encounter Care Teams Elementary Supervisor Relationship Specialty Start Date End Date No, Physician PCP - General 07/27/18 04/16/20 documented as of this encounter
--- OUTSIDE RECORDS SUMMARY | 2024-02-09 16:55 | XMS_ITS | Encounter Summary ---
Author Organization [facility] Healthcare Address [address] [place] [address] Care Team Providers Care Fender Repairer Name Role Phone No, Physician Primary Care Provider [phone] Dario Keenan MD Unavailable [phone] Encounter Details Date Type Department Care Team (Late st Contact Info) Description 04/16/2020 1:30 PM TENNIS CENTRE MANAGER Lab [address] Elias Hurd MD [address] [place] [address] [address] [facility] [place] [address] Mimi Yu NP [address] [place] [address] DR OTERO [facility] [place] [address] Encounter for supervision of other normal in first trimester Discharge Disposition: Discharge to home or [...] or self care documented in this encounter Plan of Treatment Not on file documented as of this encounter Procedures Procedure Name Priority Date/Time Associated Diagnosis Comments DIFFERENTIAL AUTO Routine 04/16/2020 1:2 5 PM TENNIS CENTRE MANAGER Encounter for supervision of other normal in first trimester HIV 1/2 ANTIBODY PLUS P24 ANTIGEN Routine 04/16/2020 1:25 PM TENNIS CENTRE MANAGER Encounter for supervision of other normal in first trimester URINALYSIS AND REFLEX TO MICROSCOPIC AND CULTURE Routine 04/16/2020 1:25 PM TENNIS CENTRE MANAGER Encounter for supervision of other normal in first trimester CBC WITH AUTO DIFFERENTIAL Routine 04/16/2020 1:25 PM TENNIS CENTRE MANAGER Encounter for supervision of other normal in first trimester HEPATITIS C ANTIBODY Routine 04/16/2020 1:25 PM TENNIS CENTRE MANAGER Encounter for supervision of other normal in first trimester DRUGS OF ABUSE SCREEN, URINE WITHOUT CONFIRMATION Routine 04/16/2020 1:25 PM TENNIS CENTRE MANAGER Encounter for supervision of other normal in first trimester ABO/RH Routine 04/16/2020 1:25 PM TENNIS CENTRE MANAGER Encounter for supervision of other normal in first trimester VITAMIN D 25 HYDROXY Routine 04/16/2020 1:25 PM TENNIS CENTRE MANAGER Encounter for supervision of other normal in first trimester RUBELLA IGG Routine 04/16/2020 1:25 PM TENNIS CENTRE MANAGER Encounter for supervision of other normal in first trimester RPR Routine 04/16/2020 1:25 PM TENNIS CENTRE MANAGER Encounter for supervision of other normal in first trimester HEPATITIS B SURFACE ANTIGEN Routine 04/16/2020 1:25 PM TENNIS CENTRE MANAGER Encounter for supervision of other normal in first trimester ANTIBODY SCREEN Routine 04/16/2020 1:25 PM TENNIS CENTRE MANAGER Encounter for supervision of other normal in first trimester TYPE AND SCREEN Routine 04/16/2020 1:25 PM TENNIS CENTRE MANAGER Encounter for supervision of other normal in first trimester VARICELLA ZOSTER ANTIBODY, IGG Routine 04/16/2020 1:25 PM TENNIS CENTRE MANAGER Encounter for supervision of other normal in first trimester documented in this encounter Results * Differential, auto (04/16/2020 1:25 PM TENNIS CENTRE MANAGER) Neutrophil abs 5.8 1.7 - 6.5 K/cumm [facility] ([place]) [...] last revised on 2017. Imm gran pct 0.3 % [facility] ([place]) Comment: Interpretive Data Percent cell count reference ranges are not reported, since discordance with absolute values may lead to misinterpretation of CBC data. Current Interpretive Data was last revised on 2017. Lymphocyte pct 29.5 % [facility] ([place]) Comment: Interpretive Data Percent cell count reference ranges are not reported, since discordance with absolute values may lead to misinterpretation of CBC data. Current Interpretive Data was last revised on 2017. Monocyte pct 4.9 % [facility] ([place]) Comment: Interpretive Data Percent cell count reference ranges are not reported, since discordance with absolute values may lead to misinterpretation of CBC data. Current Interpretive Data was last revised on 2017. Eosinophil pct 0.7 % [facility] ([place]) Comment: Interpretive [...] last revised on 2017. Blood specimen (specimen) 04/16/2020 1:25 PM TENNIS CENTRE MANAGER 04/16/2020 5:01 PM TENNIS CENTRE MANAGER Mimi Yu NP LAB BLOOD ORDERABLES Final Resul t [facility] 1 [facility] [place] [address] * Antibody screen (04/16/2020 1:25 PM TENNIS CENTRE MANAGER) Demraco, indirect, Gel Interpretation Negative [facility]SC [facility] ([place]) Blood specimen (specimen) 04/16/2020 1:25 PM TENNIS CENTRE MANAGER 04/16/2020 5:01 PM TENNIS CENTRE MANAGER Narrative [facility] ([place]) - 04/16/2020 5:39 PM TENNIS CENTRE MANAGER Has the patient had Daratumumab or Isatuximab in the past 6 months?->Unknown Mimi Yu NP LAB BLOOD BANK TEST ORDERABLES F inal Result Performing Organization Address [facility]/ZIP Co de Phone Number [facility] 1 [facility] [place] [address] * ABO/Rh (04/16/2020 1:25 PM TENNIS CENTRE MANAGER) ABO/Rh AB Positive [facility] ([place]) Blood specimen (specimen) 04/16/2020 1:25 PM TENNIS CENTRE MANAGER 04/16/2020 5:01 PM TENNIS CENTRE MANAGER Narrative [facility] ([place]) - 04/16/2020 5:39 PM TENNIS CENTRE MANAGER Has the patient had Daratumumab or Isatuximab in the past 6 months?->Unknown Mimi Yu NP LAB BLOOD BANK TEST ORDERABLES F inal Result [facility] 1 [facility] [place] [address] * (ABNORMAL) CBC with auto differential (04/16/2020 1:25 PM TENNIS CENTRE MANAGER) WBC 9.1 3.8 - 9.9 K/cumm [facility] ([place]) Hgb 12.1 11.9 - 15.5 g/dL [facility] ([place]) Hct 36.3 35.6 - 45.5 % [facility] ([place]) Plt 263 150 - 400 K/cumm [facility] ([place]) MPV 10.7 9.1 - 12.3 fL [facility] ([place]) RBC 3.81(L) 3.90 - 5.20 M/cumm [facility] ([place]) MCV 95.3 81.3 - 96.4 fL [facility] ([place]) MCH 31.8 27.1 - 33.3 pg [facility] ([place]) MCHC 33.3 32.3 - 35.7 g/dL [facility] ([place]) RDW CV 12.7 11.1 - 14.9 % [facility] ([place]) RDW SD 44.0 35.7 - 48.1 fL [facility] ([place]) NRBC abs 0.00 0.00 - 0.01 K/cumm [facility] ([place]) Blood specimen (specimen) 04/16/2020 1:25 PM TENNIS CENTRE MANAGER 04/16/2020 5:01 PM TENNIS CENTRE MANAGER us Mimi Yu NP LAB BLOOD ORDERABLES Final Resul t [facility] ([place]) 1 [facility] [place] [address] * Drugs of Abuse Screen, Urine without Confirmation (04/16/2020 1:25 PM TENNIS CENTRE MANAGER) Amphetamine, ur Not Detected CutOff 500ng/mL [facility] ([place]) Comment: Interpretive Data - Amphetamines: ??Samples containing greater than 500 ng/mL d-methamphetamine ??or other cross-reacting amphetamine compounds are reported as positive. ??Amphetamine immunoassays are subject to significant false positive rates due to cross-reactivity of non-amphetamine drugs. Current Interpretive Data was last reviewed 2018. Barbiturates, ur Not Detected CutOff 200ng/mL [facility] ([place]) Comment: Interpretive Data - Barbiturates: ??Samples containing greater than 200 ng/mL secobarbital or other cross-reacting barbiturate compounds are reported as positive. ??False positive and false negative results are possible. Current Interpretive Data was last reviewed 2018. Benzodiazepines, ur Not Detected CutOff 100ng/mL [facility] ([place]) Comment: Interpretive Data - Benzodiazepines: ??Samples containing greater than 100 ng/mL nordiazepam or other cross-reacting compounds are reported as positive. ?? False positive and false negative results are possible. ?? Current Interpretive Data was last reviewed 2018. Cannabinoids, ur Not Detected CutOff 50 ng/mL [facility] ([place]) Comment: Interpretive Data - Cannabinoids: ??Samples containing greater than 50 ng/mL delta-9 THC -COOH or other cross-reacting compounds are reported as positive. ??False positive and false negative results are possible. ?? Current Interpretive Data was last reviewed 2018. Cocaine, ur Not Detected CutOff 150ng/mL [facility] ([place]) Comment: Interpretive Data - Cocaine: ??Samples containing greater than 150 ng/mL benzoylecgonine or other cross-reacting compounds are reported as positive. False positive and false negative results are possible. Current Interpretive Data was last reviewed 2018. Fentanyl, Ur Not Detected Cutoff 1 ng/mL [facility] ([place]) Comment: Interpretive Data - Fentanyls: ??Samples containing greater than 1 ng/mL fentanyl or other cross-reacting fentanyl compounds are reported as detected. ??False positive and false negative results are possible. Current Interpretive Data was last reviewed 2018. Methadone, ur Not Detected CutOff 300ng/mL [facility] ([place]) Comment: Interpretive Data - Methadone: ??Samples containing greater than 300 ng/mL d,l-methadone or other cross-reacting compounds are reported as positive. ??False positive and false negative results are possible. Current Interpretive Data was last reviewed 2018. Opiates, ur Not Detected CutOff 300ng/mL [facility] ([place]) Comment: Interpretive Data - Opiates: ??Samples containing greater than 300 ng/mL morphine or other cross-reacting compounds are reported as positive. ??False positive and false negative results are possible. Current Interpretive Data was last reviewed 2018. Oxycodone, ur Not Detected CutOff 100ng/mL [facility] ([place]) Comment: Interpretive Data - Oxycodone: ??Samples containing greater than 100 ng/mL oxycodone or other cross-reacting compounds are reported as positive. ??False positive and false negative results are possible. ?? Current Interpretive Data was last reviewed 2018. Phencyclidine, ur Not Detected CutOff 25 ng/mL [facility] ([place]) Comment: Interpretive Data - Phencyclidine: ??Samples containing greater than 25 ng/mL phencyclidine or other cross-reacting compounds are reported as positive. ??False positive and false negative results are possible. ?? Current Interpretive Data was last reviewed 2018. Urine Creatinine 116 mg/dL [facility] ([place]) Comment: Interpretive Data Urine Creatinine: < 10 mg/dL is extremely dilute = or > 10 but < 20 mg/dL is dilute = or > 20 mg/dL is normal Current Interpretive Data was last revised on 2017. Urine 04/16/2020 1:25 PM TENNIS CENTRE MANAGER 04/16/2020 5:01 PM TENNIS CENTRE MANAGER Narrative [facility] ([place]) - 04/16/2020 5:37 PM TENNIS CENTRE MANAGER Drug of Abuse screening is performed by immunoassay for medical purposes only. ??This is not to be used for Pain Management purposes. Mimi Yu NP LAB URINE ORDERABLES Final Resul t [facility] ([place]) 1 [facility] Department of Laboratories [place], [place] [id number] * Hepatitis B Surface Antigen (04/16/2020 1:25 PM TENNIS CENTRE MANAGER) HepBsAg Nonreactive Nonreactive [facility] ([place]) Comment:Testing performed by : [facility], [address] [place] [address], [place]., [address] Blood specimen (specimen) 04/16/2020 1:25 PM TENNIS CENTRE MANAGER 04/17/2020 9:32 AM TENNIS CENTRE MANAGER Mimi Yu NP LAB MICROBIOLOGY - GENERAL ORDER VANDANA Final Result [facility] ([place]) 1 [facility] [place] [address] * Hepatitis C antibody (04/16/2020 1:25 PM TENNIS CENTRE MANAGER) Hep C Ab Nonreactive Nonreactive [facility] ([place]) Comment: Interpretive Data Nonreactive: Antibodies to HCV [...] last revised on 2019. Testing performed by: [facility], [address] [place] [address]., [id number] Blood specimen (specimen) 04/16/2020 1:25 PM TENNIS CENTRE MANAGER 04/17/2020 9:32 AM TENNIS CENTRE MANAGER Mimi Yu NP LAB MICROBIOLOGY - GENERAL ORDER VANDANA Edited Result - Final Performing Organization Address City/[facility] Co de Phone Number [facility] [place]) 1 [facility] [place] [address] * HIV 1/2 Antibody plus p24 Antigen (04/16/2020 1:25 PM TENNIS CENTRE MANAGER) HIV 1/2 ab + p24 ag Nonreactive Nonreactive [facility] ([place]) Comment: Nonreactive for HIV-1 antigen and HIV-1/HIV-2 antibodies. No laboratory evidence of HIV infection. If acute HIV infection is suspected, consider testing for HIV-1 RNA. Testing performed by: [facility], [address] [place] [address]., [id number] Blood specimen (specimen) 04/16/2020 1:25 PM TENNIS CENTRE MANAGER 04/16/2020 7:37 PM TENNIS CENTRE MANAGER us Mimi Yu NP LAB MICROBIOLOGY - GENERAL ORDER VANDANA Final Result [facility] ([place]) 1 [facility] [place] [address] * RPR (04/16/2020 1:25 PM TENNIS CENTRE MANAGER) RPR Nonreactive Nonreactive [facility] ([place]) Comment:Testing performed by : [facility], [address] [place] [address], [id number] Blood specimen (specimen) 04/16/2020 1:25 PM TENNIS CENTRE MANAGER 04/17/2020 9:32 AM TENNIS CENTRE MANAGER us Mimi Yu NP LAB MICROBIOLOGY - GENERAL ORDER VANDANA Final Result Performing Organization Address [facility] de Phone Number [facility] ([place]) 1 [facility] [place] [address] * Rubella IgG (04/16/2020 1:25 PM TENNIS CENTRE MANAGER) Rubella IgG Reactive [facility] ([place]) Comment: Interpretive Data Nonreactive: ??No detectable antibody to rubella. Such individuals are presumed to be uninfected with rubella and to be susceptible to primary infection. Equivocal: Presence or absence of detectable antibody to rubella cannot be determined and test should be repeated. ?? Reactive: Indicates the presence of detectable antibody to rubella. ??Indicative of current or past infection or vaccination. Current Interpretive Data was last revised on 2020. Testing performed by: [facility], [address] [place] [address], [place]., [address] Blood specimen (specimen) 04/16/2020 1:25 PM TENNIS CENTRE MANAGER 04/16/2020 7:37 PM TENNIS CENTRE MANAGER us Mimi Yu NP LAB MICROBIOLOGY - GENERAL ORDER VANDANA Final Result Performing Organization Address City/[facility]/ZIP Co de Phone Number [facility] ([place]) 1 [facility] [address] * Urinalysis reflex to microscopic and culture Urine, clean voided (04/16/2020 1:25 PM TENNIS CENTRE MANAGER) Color, ur Yellow Yellow [facility] ([place]) Clarity, ur Clear Clear [facility] ([place]) Specific gravity, ur 1.021 1.010 - 1.025 [facility] ([place]) pH, urine 6.0 [facility] ([place]) Protein, ur ql Negative Negative [facility] ([place]) Glucose, ur ql Negative Negative [facility] ([place]) Ketones, ur Negative Negative [facility] ([place]) Bilirubin, ur Negative Negative [facility] ([place]) Blood, ur Negative Negative [facility] ([place]) Urobilinogen, ur <2.0 <2.0 mg/dL [facility] ([place]) Nitrite, ur Negative Negative [facility] ([place]) Leukocyte esterase, ur Negative Negative [facility] ([place]) UA reflex comment Reflex conditions for microscopic UA and culture not met. [facility] ([place]) Urine, clean voided 04/16/2020 1:25 PM TENNIS CENTRE MANAGER 04/16/2020 5:01 PM TENNIS CENTRE MANAGER Narrative [facility] ([place]) - 04/16/2020 5:05 PM TENNIS CENTRE MANAGER ?? Urine pH is affected by diet, medications, systemic acid-base disturbances, and renal tubular function. ??pH may affect urinary stone formation. ??For example, urine pH below 6.0 may help reduce the tendency for calcium phosphate stones and pH greater than 6.0 may reduce the tendency for uric acid stone formation. Source: [employer]. Last revised 03-02-2017 us Mimi Yu NP LAB MICROBIOLOGY - GENERAL ORDER VANDANA Final Result [facility] ([place]) 1 [facility] [place] [address] * Varicella Zoster (VZV) IgG Blood (04/16/2020 1:25 PM TENNIS CENTRE MANAGER) VZV IgG Nonreactive Nonreactive [facility] ([place]) Comment: No IgG antibodies specific to Varicella Zoster virus detected.?? Patient is presumed not to have had a previous exposure to Varicella Zoster through??infection or vaccination. ?? Testing performed by: [facility], [address] [facility], [place]., [address] Blood specimen (specimen) 04/16/2020 1:25 PM TENNIS CENTRE MANAGER 04/16/2020 7:37 PM TENNIS CENTRE MANAGER us Mimi Yu NP LAB MICROBIOLOGY - GENERAL ORDER VANDANA Final Result Performing Organization Address City/[facility]/ZIP Co de Phone Number [facility] ([place]) 1 [facility] [place] [address] * (ABNORMAL) Vitamin D 25 hydroxy (04/16/2020 1:25 PM TENNIS CENTRE MANAGER) Vitamin D 25-OH 18(L) 30 - 80 ng/mL [facility] ([place]) Blood specimen (specimen) 04/16/2020 1:25 PM TENNIS CENTRE MANAGER 04/16/2020 5:01 PM TENNIS CENTRE MANAGER Mimi Yu NP LAB BLOOD ORDERABLES Final Resul t Performing Organization Address City/[facility]/ZIP Co de Phone Number [facility] ([place]) 1 [facility] [place] [place] [address] documented in this encounter Visit Diagnoses Diagnosis Encounter for supervision of other normal in first trimester documented in this encounter Care Teams Fender Repairer Relationship Specialty Start Date End Date No, Physician PCP - General 07/27/18 04/16/20 Dario Keenan MD [address] [place] [address] Referring Physician Obstetrics and Gynecology 10/23/18 documented as of this encounter
--- OUTSIDE RECORDS SUMMARY | 2024-02-09 16:55 | XMS_ITS | Encounter Summary ---
Author Organization [facility] Address [address] [facility] [address] [place] [address] Care Team Providers Care Net C Developer Name Role Phone No, Physician Primary Care Provider [phone] Dario Keenan MD Unavailable [phone] Reason for Visit * Reason Comments New Patient Initial Visit Encounter Details Date Type Department Care Team (Late st Contact Info) Description 03/13/2020 2:00 PM TIME STUDY TECHNICIAN Initial [facility] [address] [place] [address] [address] [place] [address] Mimi Yu, LEASING DIRECTOR [address] [place] [address] [address] [address] GA: 11w1d Social History Tobacco Use Types Packs/Day Years [...] Sign Reading Time Taken Comments Blood Pressure 118/84 03/13/2020 2:34 PM TIME STUDY TECHNICIAN Pulse - - Temperature - - Respiratory Rate - - Oxygen Saturation - - Inhaled Oxygen Concentration - - Weight 77.1 kg (170 lb) 03/13/2020 2:34 PM TIME STUDY TECHNICIAN Height 170.2 cm (5' 7 ) 03/13/2020 2:34 PM TIME STUDY TECHNICIAN Body Mass Index 26.63 03/13/2020 2:34 PM TIME STUDY TECHNICIAN documented in this encounter Progress Notes * Mimi Yu NP - 03/13/2020 2:00 PM CST Initial OB Visit Subjective: Jordyn Shields is a 24 y.o., at 11w1d, based on LMP, who presents for initial visit. Her obstetrical history is significant for induced hypertension and pre-term delivery. Past history fully reviewed. She reports nausea. Additional concerns today: None. Patient had a section at 34 weeks gestation with her first for pre-eclampsia. Menstrual History: Patient's last menstrual period was 12/26/2019. Sexual History: OB History 2 Para 1 Term 1 AB Living 1 SAB TAB Ectopic Multiple Live Births 1 # Outcome Date GA Labor/2nd Weight Sex Delivery Anes PTL Lv A1 A5 1 08/2018 34w0d 1.899 kg (4 lb 3 oz) F CS-Unspec Spinal Living Complications: Pre eclampsia 2 Current Past medical, surgical, and CUSTOMER SERVICE AGENT history fully reviewed. ROS Objective: BP 118/84 (BP Location: Right arm, Patient Position: Sitting) Ht 170.2 cm (5' 7 ) Wt 170 lb (77.1 kg) LMP 12/26/2019 BMI 26.63 kg/m?? Physical OB Exam: Last filed by Mimi Yu NP on 03/13/2020 4:04 PM General Physical Exam HEENT: normal Heart: normal Skin: normal Thyroid: normal Lungs: normal Extremities: normal Lymph Nodes: normal Neurological: normal Abdomen: normal Pelvic Exam Vulva: normal Vagina: normal Cervix: normal Adnexa: normal Rectum: deferred Spines: average Subpubic Arch: normal See flow sheet for gestation -specific examination and vitals. See Episode Report for physical of record. Assessment: Patient is a 24 y.o., at 11w1d, size = dates. Diagnoses and all orders for this visit: Encounter for supervision of other normal in first trimester (Primary) - Antibody screen; Future - CBC with auto differential; Future - Drugs of Abuse Screen, Urine without Confirmation; Future - Hepatitis B Surface Antigen; Future - Hepatitis C antibody; Future - HIV 1/2 Antibody plus p24 Antigen; Future - RPR; Future - Rubella IgG; Future - Type and screen; Future - Urinalysis reflex to microscopic and culture Urine, clean voided; Future - Varicella Zoster (VZV) IgG Blood; Future - Vitamin D 25 hydroxy; Future 11 weeks gestation of Problem list reviewed and updated: LMP:12/26/2019 Problems (from 03/13/20 to present) No problems associated with this episode. Plan: vitamin with DHA ordered Labs ordered Discussed genetic testing - patient declines Genetic counseling declined I reviewed exercise, diet, medications, precautions. Also, see checklist. Follow up in 4 weeks. Mimi Yu NP 03/13/2020 STUDY TECHNICIAN documented in this encounter Miscellaneous Notes * Addendum Note - Shannan Webb MA - 03/13/2020 2:00 PM CSTAddended by: SHANNAN WEBB on: 03/13/2020 04:23 PM Modules accepted: Orders STUDY TECHNICIAN * Addendum Note - Shannan Webb MA - 03/13/2020 2:00 PM CSTAddended by: SHANNAN WEBB on: 03/13/2020 04:24 PM Modules accepted: Orders STUDY TECHNICIAN documented in this encounter Plan of Treatment Scheduled Orders Name Type Priority Associated Diagnoses Orde r Schedule N. gonorrhoeae/C. trachomatis Amplification Thin prep Microbiology Routine Routine screening for STI (sexually transmitted infection) Expected: 03/13/2020, Expires: 03/13/2021 documented as of this encounter Procedures Procedure Name Priority Date/Time Associated Diagnosis Comments PAP WITH REFLEX TO HIGH RISK HPV Routine 03/13/2020 4:24 PM TIME STUDY TECHNICIAN Encounter for supervision of other normal in first trimester N. GONORRHOEAE/C. TRACHOMATIS AMPLIFICATION Routine 03/13/2020 4:24 PM TIME STUDY TECHNICIAN documented in this encounter Results * (ABNORMAL) Vitamin D 25 hydroxy (04/16/2020 1:25 PM TIME STUDY TECHNICIAN) Vitamin D 25-OH 18(L) 30 - 80 ng/mL [facility] ([place]) Blood specimen (specimen) 04/16/2020 1:25 PM TIME STUDY TECHNICIAN 04/16/2020 5:01 PM TIME STUDY TECHNICIAN us Mimi Yu NP LAB BLOOD ORDERABLES Final Resul t Performing Organization Address City/[facility]/ZIP Co de Phone Number DORI GAMA ([place]) 1 [facility] [place] [address] * Varicella Zoster (VZV) IgG Blood (04/16/2020 1:25 PM TIME STUDY TECHNICIAN) [facility] VZV IgG Nonreactive Nonreactive [facility] ([place]) Comment: No IgG antibodies specific to Varicella Zoster virus detected.?? Patient is presumed not to have had a previous exposure to Varicella Zoster through??infection or vaccination. ?? Testing performed by: [facility], [address] [place] [address]., [id number] Blood specimen (specimen) 04/16/2020 1:25 PM TIME STUDY TECHNICIAN 04/16/2020 7:37 PM TIME STUDY TECHNICIAN us Mimi Yu NP LAB MICROBIOLOGY - GENERAL ORDER VANDANA Final Result Performing Organization Address [facility] Co de Phone Number DORI GAMA ([place]) 1 [facility] [place] [address] * Urinalysis reflex to microscopic and culture Urine, clean voided (04/16/2020 1:25 PM TIME STUDY TECHNICIAN) Pathologist [facility] Color, ur Yellow Yellow [facility] ([place]) [...] [facility] ([place]) Urobilinogen, ur <2.0 <2.0 mg/dL [facility]I [place] ([place]) Nitrite, ur Negative Negative [facility]I [facility] ([place]) Leukocyte esterase, ur Negative Negative [facility] [place] ([place]) UA reflex comment Reflex conditions for microscopic UA and culture not met. MICHAELAHAI [place] ([place]) Urine, clean voided 04/16/2020 1:25 PM TIME STUDY TECHNICIAN 04/16/2020 5:01 PM TIME STUDY TECHNICIAN Narrative [facility] GAMA ([place]) - 04/16/2020 5:05 PM TIME STUDY TECHNICIAN ?? Urine pH is affected by diet, medications, systemic acid-base disturbances, and renal tubular function. ??pH may affect urinary stone formation. ??For example, urine pH below 6.0 may help reduce the tendency for calcium phosphate stones and pH greater than 6.0 may reduce the tendency for uric acid stone formation. Source: [place] [employer]. Last revised 03-02-2017 Mimi Yu NP LAB MICROBIOLOGY - GENERAL ORDER VANDANA Final Result DORI GAMA ([place]) 1 [facility] [place] [address] * Rubella IgG (04/16/2020 1:25 PM TIME STUDY TECHNICIAN) Rubella IgG Reactive DORI Jaguar NOLAN ([place]) Comment: Interpretive Data Nonreactive: ??No detectable antibody [...] last revised on 2020. Testing performed by: [facility], [address] [facility], [place]., [address] Blood specimen (specimen) 04/16/2020 1:25 PM TIME STUDY TECHNICIAN 04/16/2020 7:37 PM TIME STUDY TECHNICIAN us Mimi Yu NP LAB MICROBIOLOGY - GENERAL ORDER VANDANA Final Result [facility] GAMA ([place]) 1 [facility] [place] [address] * RPR (04/16/2020 1:25 PM TIME STUDY TECHNICIAN) RPR Nonreactive Nonreactive DORI GAMA ([place]) Comment:Testing performed by : [facility], [address] [place] [address], [id number] Blood specimen (specimen) 04/16/2020 1:25 PM TIME STUDY TECHNICIAN 04/17/2020 9:32 AM TIME STUDY TECHNICIAN us Mimi Yu NP LAB MICROBIOLOGY - GENERAL ORDER VANDANA Final Result Performing Organization Address [facility] Co de Phone Number DORI GAMA ([place]) 1 [place] [address] * HIV 1/2 Antibody plus p24 Antigen (04/16/2020 1:25 PM TIME STUDY TECHNICIAN) Pathologist [facility] HIV 1/2 ab + p24 ag Nonreactive Nonreactive DORI GAMA ([place]) Comment: Nonreactive for HIV-1 antigen and HIV-1/HIV-2 antibodies. No laboratory evidence of HIV infection. If acute HIV infection is suspected, consider testing for HIV-1 RNA. Testing performed by: [facility], [address] [place] [address], [id number] Blood specimen (specimen) 04/16/2020 1:25 PM TIME STUDY TECHNICIAN 04/16/2020 7:37 PM TIME STUDY TECHNICIAN us Mimi Yu NP LAB MICROBIOLOGY - GENERAL ORDER VANDANA Final Result DORI GAMA ([place]) 1 [facility] [place] [address] * Hepatitis C antibody (04/16/2020 1:25 PM TIME STUDY TECHNICIAN) Hep C Ab Nonreactive Nonreactive DORI GAMA [...] last revised on 2019. Testing performed by: [facility], [address] [place] [address]., [address] Blood specimen (specimen) 04/16/2020 1:25 PM TIME STUDY TECHNICIAN 04/17/2020 9:32 AM TIME STUDY TECHNICIAN Mimi Yu NP LAB MICROBIOLOGY - GENERAL ORDER VANDANA Edited Result - Final Performing Organization Address [facility] Co de Phone Number [facility] 1 [facility] [place] [address] * Hepatitis B Surface Antigen (04/16/2020 1:25 PM TIME STUDY TECHNICIAN) HepBsAg Nonreactive Nonreactive [facility] ([place]) Comment:Testing performed by : [facility], [address] [place] [address]., [id number] Blood specimen (specimen) 04/16/2020 1:25 PM TIME STUDY TECHNICIAN 04/17/2020 9:32 AM TIME STUDY TECHNICIAN Mimi Yu NP LAB MICROBIOLOGY - GENERAL ORDER VANDANA Final Result Performing Organization Address [facility] de Phone Number [facility] ([place] 1 [facility] [place] [address] * Drugs of Abuse Screen, Urine without Confirmation (04/16/2020 1:25 PM TIME STUDY TECHNICIAN) Amphetamine, ur Not Detected CutOff 500ng/mL DORI GAMA ([place]) Comment: Interpretive Data - Amphetamines: ??Samples [...] revised on 2017. Urine 04/16/2020 1:25 PM TIME STUDY TECHNICIAN 04/16/2020 5:01 PM TIME STUDY TECHNICIAN Narrative [facility] ([place]) - 04/16/2020 5:37 PM TIME STUDY TECHNICIAN Drug of Abuse screening is performed by immunoassay for medical purposes only. ??This is not to be used for Pain Management purposes. us Mimi Yu NP LAB URINE ORDERABLES Final Resul t [facility] ([place]) 1 [facility] Department of Laboratories [place], [place] [id number] * (ABNORMAL) CBC with auto differential (04/16/2020 1:25 PM TIME STUDY TECHNICIAN) WBC 9.1 3.8 - 9.9 K/cumm [facility] ([place]) Hgb 12.1 11.9 - 15.5 g/dL [facility]ER [...] ([place]) Blood specimen (specimen) 04/16/2020 1:25 PM TIME STUDY TECHNICIAN 04/16/2020 5:01 PM TIME STUDY TECHNICIAN us Mimi Yu NP LAB BLOOD ORDERABLES Final Resul t Performing Organization Address City/[facility]/ZIP Co de Phone Number [facility] ([place]) 1 [facility] Department [place] [address] * N. gonorrhoeae/C. trachomatis Amplification (03/13/2020 4:24 PM TIME STUDY TECHNICIAN) C. trachomatis RNA Negative Negative [facility] 02 N. gonorrhoeae RNA Negative Negative [facility] 02 03/13/2020 4:24 PM TIME STUDY TECHNICIAN 03/13/2020 Narrative [facility] - 03/17/2020 8:13 AM TIME STUDY TECHNICIAN Performed at: ??02 - [facility] [address] ??[id number] Warp Tier: Nasima Evans MD, Phone: ??[phone] us Mimi Yu NP LAB MICROBIOLOGY - GENERAL ORDER VANDANA Final Result Performing Organization Address City/State/[facility] Co de Phone Number [facility] 02 * Pap with reflex to High Risk HPV (03/13/2020 4:24 PM TIME STUDY TECHNICIAN) Clinical indication Comment [facility] - 01 Comment:NEGATIVE [...] testing was performed. Swab 03/13/2020 4:24 PM TIME STUDY TECHNICIAN 03/13/2020 Narrative [facility] - 03/17/2020 8:13 AM TIME STUDY TECHNICIAN Performed at: ??01 - [facility] ??[id number] Warp Tier: Nasima Evans MD, Phone: ??[phone] Specimen Comment: [id number] Specimen Comment: No. of containers..01 ThinPrep Vial Mimi Yu NP LAB CYTOLOGY ORDERABLES Final Re sult [facility] - documented in this encounter Visit Diagnoses Diagnosis Encounter for supervision of other normal in first trimester- Primary 11 weeks gestation of Routine screening for STI (sexually transmitted infection) Screening examination for venereal disease Encounter for supervision of other normal in first trimester documented in this encounter Historical Medications * This list may reflect changes made after this encounter. vit 16-smun-meumb-dha 27mg iron- 800 mcg-250 mg capsule Take by mouth 09/11/2020 added in this encounter Care Teams Net C Developer Relationship Specialty Start Date End Date No, Physician PCP - General 07/27/18 04/16/20 aDrio Keenan MD [address] [place], [place] [id number] Referring Physician Obstetrics and Gynecology 10/23/18 documented as of this encounter
--- OUTSIDE RECORDS SUMMARY | 2024-02-09 16:55 | XMS_ITS | Encounter Summary ---
Author Organization [facility] Address [address] [place] [address] Phone Care Team Providers Care Hot Saw Helper Name Role Phone No, Physician Primary Care Provider [phone] Reason for Visit * Consultation (Routine) - Closed Specialty Diagnoses / Procedures Referred By Contac t Referred To Contact Maternal and Medicine Diagnoses Supervision of high risk , unspecified, unspecified trimester Irina Monique MD Phone: tel: fax: [facility] (All Locations) Referral ID Status Reason Start Date Expiration Date V isits Requested Visits Authorized [id number] Closed Specialty Services Required 08/02/2018 02/11/2020 1 1 Encounter Details Date Type Department Care Team (Late st Contact Info) Description 08/20/2018 11:00 AM CDT Office Visit [facility] Physicians [facility] Obstetrics and Gynecology [address] [place] [address] Supervision of high risk , unspecified, unspecified trimester Social History Tobacco Use Types [...] as of this encounter Visit Diagnoses Diagnosis Supervision of high risk , unspecified, unspecified trimester documented in this encounter Orders Outpatient Referral Count Last Ordered Date Fir st Ordered Date AMB REFERRAL TO MATERNAL AND MEDICINE 1 08/20/2018 documented in this encounter Care Teams Hot Saw Helper Relationship Specialty Start Date End Date No, Physician PCP - General 07/27/18 04/16/20 documented as of this encounter
--- OUTSIDE RECORDS SUMMARY | 2024-02-09 16:55 | XMS_ITS | Encounter Summary ---
Author Organization [facility] Address [address] [facility] [facility] [address] [place] [address] Care Team Providers Care Founder And Chief Executive Officer Name Role Phone No, Physician Primary Care Provider [phone] Dario Keenan MD Unavailable [phone] Reason for Referral * Diagnostic Imaging (Routine) - Closed Specialty Diagnoses / Procedures Referred By Contac t Referred To Contact Diagnoses Encounter to establish gestational age using ultrasound Procedures US Ob Under 14 Weeks Elias Hurd MD [address] [place] [address] [address], [place] [address] Phone: tel: fax: [facility]i CASIANO [address] [address] Phone: tel: fax: Referral ID Status Reason Start Date Expiration Date Visits Re quested Visits Authorized [id number] Closed 03/13/2020 04/12/2021 1 1 TAL ASSISTANT Encounter Details Date Type Department Care Team (Late st Contact Info) Description 03/13/2020 1:00 PM DIGITAL ASSISTANT Office Visit [facility] [address] [place] [phone] Encounter to establish gestational age using ultrasound (Primary Dx) Social History Tobacco Use Types [...] on file documented as of this encounter Progress Notes * Elias Hurd MD - 03/13/2020 1:00 PM CST See ultrasound results in imaging. documented in this encounter Plan of Treatment Not on file documented as of this encounter Visit Diagnoses Diagnosis Encounter to establish gestational age using ultrasound- Primary Encounter for routine screening for malformation using ultrasonics documented in this encounter Orders Imaging Orders Without Results Count Last Order ed Date First Ordered Date US OB UNDER 14 WEEKS 1 03/13/2020 documented in this encounter Care Teams Founder And Chief Executive Officer Relationship Specialty Start Date End Date No, Physician PCP - General 07/27/18 04/16/20 Dario Keenan MD [address] [place] [address] Referring Physician Obstetrics and Gynecology 10/23/18 documented as of this encounter
--- OUTSIDE RECORDS SUMMARY | 2024-02-09 16:55 | XMS_ITS | Encounter Summary ---
Author Organization [facility] Address [address] [facility] [address] [place] [address] Care Team Providers Care Advertising Sales Agent Name Role Phone Dario Keenan MD Unavailable [phone] No, Physician Primary Care Provider [phone] Reason for Referral * Diagnostic Imaging (Routine) - Closed Specialty Diagnoses / Procedures Referred By Contac t Referred To Contact Diagnoses Encounter for screening for cervical length Procedures US Ob Transvaginal Elias Hurd MD [address] [place] [address] DR OTERO [address] [place] [address] Phone: tel: fax: M[facility]i [facility] [address] [address] Phone: tel: fax: Referral ID Status Reason Start Date Expiration Date Visits Re quested Visits Authorized [id number] Closed 05/15/2020 06/14/2021 1 1 * Diagnostic Imaging (Routine) - Closed Specialty Diagnoses / Procedures Referred By Contac t Referred To Contact Diagnoses Encounter for screening for cervical length Procedures US OB detail anatomy single or first gestation Elias Hurd MD [address] [place] [address] DR OTERO [address] [place] [address] Phone: tel: fax: [facility] [address] [place] [address] Phone: tel: fax: Referral ID Status Reason Start Date Expiration Date Visits Re quested Visits Authorized [id number] Closed 05/15/2020 06/14/2021 1 1 Reason for Visit * Reason Comments Ultrasound Encounter Details Date Type Department Care Team (Latest Contact Info) Description 05/15/2020 9:00 AM CDT Clinical Support M[facility] Sally [address] [place] [address] [address] [address] Encounter for anatomic survey (Primary Dx); Encounter for screening for cervical length Social History Tobacco Use Types Packs/Day Years [...] as of this encounter Plan of Treatment Scheduled Orders Name Type Priority Associated Diagnoses Orde r Schedule US Ob Transvaginal Imaging Schedule Rout ine, Read Routine (OP Routine) Encounter for screening for cervical length Expected: 05/15/2020, Expires: 05/15/2021 documented as of this encounter Procedures Procedure Name Priority Date/Time Associated Diagnosis Comments US OB DETAIL ANATOMY SINGLE OR FIRST GESTATION Schedule Routine, Read Routine (OP Routine) 07/26/2020 5:32 PM CDT Encounter for screening for cervical length Encounter for anatomic survey documented in this encounter Results * US OB detail anatomy single or first gestation (07/26/2020 5:32 PM CDT) Anatomical Region Laterality Modality Body N/A Ultrasound Narrative 07/26/2020 5:32 PM CDT [facility] Obstetric Ultrasound Date of Exam: 05/15/2020 Diagnosis: ??Anatomic Survey and cervical length screening. Clinical History: ??Patient presents for anatomic survey ultrasound at 19 weeks 6 days. Patient's last menstrual period was 12/26/2019. Findings: ??Transabdominal obstetric ultrasound examination reveals a sherman intrauterine gestation in transverse head right position. ??FHR is 147 bpm. ?? movement is seen. ??Placenta location is anterior. ?? Amnionic fluid volume appears normal. biometrics show a BPD of 4.5 cm or 19 weeks 3 days, HC of 17.4 cm or 19 weeks 6 days, AC of 16.0 cm or 21 weeks 1 day and FL of 2.9 cm or 19 weeks 0 days giving an AGA of 19 weeks 6 days and an ELDER of 10/03/20. ??EFW is 12 ounces +/- 2 oz. ??EFW: 42%. The uterus and cervix appear normal with TA cervical length 5.8 cm. ??TV ultrasound is next performed to more accurately assess cervical length. ?? The cervix is closed with no funneling. ??Multiple images of the cervical length are obtained ranging from 4.2 - 4.6 ??cm. ??TV cervical length of 4.2 cm is WNL. anatomic survey is WNL including brain anatomy with normal appearing cerebellum, cisterna magna at 5.6 mm and lateral ventricle at 7.2 mm. ?? Normal appearing 4 chamber heart, spine, stomach, bladder, 3-v cord, cord insertion, diaphragm and extremities are seen. ??Gender is male. ??Cardiac outflow tracts appear normal. ??Bilateral renal pelvis are borderline dilated on the left at 3.9 mm and mildly dilated on the right at 4.3 mm. ?? Impression: ??1. ??19 week 6 day AGA by this ultrasound. ??2. ??No anatomic abnormalities are seen. ?? 3. ??TV Cervical length is normal. Interpreting physician: Elias Hurd MD Obstetrics and Gynecology us Elias Hurd MD IMG OB US PROCEDURES Final Result documented in this encounter Visit Diagnoses Diagnosis Encounter for anatomic survey- Primary Encounter for screening for cervical length documented in this encounter Care Teams Advertising Sales Agent Relationship Specialty Start Date End Date No, Physician PCP - General 04/20/20 06/29/23 Dario Keenan MD [address] [address] Referring Physician Obstetrics and Gynecology 10/23/18 documented as of this encounter
--- OUTSIDE RECORDS SUMMARY | 2024-02-09 16:55 | XMS_ITS | Encounter Summary ---
Author Organization [facility] Address [address] [place] [address] Care Team Providers Care Winery Worker Name Role Phone Dario Keenan MD Unavailable [phone] No, Physician Primary Care Provider [phone] Reason for Visit * Reason Comments Routine Visit Encounter Details Date Type Department Care Team (Late st Contact Info) Description 07/24/2020 11:00 AM CDT Routine [facility] [address] [facility] [address] [place] [address] Mimi Yu, LOCAL COMPANY INTERMODAL TRUCK DRIVER 4 [facility] [address] [place] [address] Encounter for supervision of other normal in third trimester (Primary Dx); 30 weeks gestation of Social History Tobacco Use [...] Sign Reading Time Taken Comments Blood Pressure 128/80 07/24/2020 11:01 AM CDT Pulse - - Temperature - - Respiratory Rate - - Oxygen Saturation - - Inhaled Oxygen Concentration - - Weight 89.4 kg (197 lb 3.2 oz) 07/24/2020 11:01 AM CDT Height 170.2 cm (5' 7 ) 07/24/2020 11:01 AM CDT Body Mass Index 30.89 07/24/2020 11:01 AM CDT documented in this encounter Progress Notes * Shannan Jones MA - 07/24/2020 11:00 AM CDT Pt denies receiving education. Pt states that she is going to formula feed her baby. 07/24/2020. -CC * Mimi Yu NP - 07/24/2020 11:00 AM CDT Doing well. Continues to take ASA as directed for gestational hypertension. S=D, fetus palpates in transverse presentation. 28 week labs today. Repeat limited pelvic sono ordered. PTL and preE instructions. Continue ASA for now; discuss discontinuation with Dr. Hurd at next RACHEL appointment. * Shannan Jones MA - 07/24/2020 11:00 AM CDT Tdap vaccination given in pts rt deltoid. Pt tolerated well. 07/24/2020 -CC documented in this encounter Plan of Treatment Not on file documented as of this encounter Procedures Procedure Name Priority Date/Time Associated Diagnosis Comments POCT URINALYSIS DIPSTICK Routine 07/24/2020 11:02 AM CDT Encounter for supervision of other normal in third trimester 30 weeks gestation of documented in this encounter Results * POCT urinalysis dipstick (07/24/2020 11:02 AM CDT) Glucose, ur, POC Negative Negative mg/dL Protein, ur, POC Negative Negative Lot Number [id number] Urine 07/24/2020 11:0 2 AM CDT Mimi M. Yu [employer] COMPANY INTERMODAL TRUCK DRIVER POINT OF CARE TEST ORDERABLES Fi nal Result documented in this encounter Visit Diagnoses Diagnosis Encounter for supervision of other normal in third trimester- Primary 30 weeks gestation of documented in this encounter Orders Immunization/Injection Count Last Ordered Date First Ordered Date TDAP VACCINE GREATER THAN OR EQUAL TO 7YO IM 1 07/24/2020 documented in this encounter Care Teams Winery Worker Relationship Specialty Start Date End Date No, Physician PCP - General 04/20/20 06/29/23 Dario Keenan MD [address] [place] [address] Referring Physician Obstetrics and Gynecology 10/23/18 documented as of this encounter
--- OUTSIDE RECORDS SUMMARY | 2024-02-09 16:55 | XMS_ITS | Encounter Summary ---
Author Organization [facility] Address [address] [place] [address] Care Team Providers Care Fine Sander Name Role Phone Dario Keenan MD Unavailable [phone] Marc Marin MD Primary Care Provider [phone] Reason for Visit * Reason Onset Date Comments Test Results 04/17/2020 Encounter Details Date Type Department Care Team (Late st Contact Info) Description 04/17/2020 Telephone [facility] [address] [facility] [address] [place] [address] Love Khan MA Test Results Social History Tobacco Use Types Packs/Day Years [...] Refills Last Filled Start Date End Date cholecalciferol (VITAMIN D-3) 5,000 unit capsule Take one capsule daily with food. 30 capsule 11 04/17/2020 documented in this encounter Miscellaneous Notes * Addendum Note - Love Khan MA - 04/17/2020 10:32 AM CSTAddended by: LOVE KHAN on: 04/17/2020 10:32 AM Modules accepted: Orders RER SCREEN MEASURER AND TRIMMER * Telephone Encounter - Love Khan MA - 04/17/2020 10:22 AM SHEARER SCREEN MEASURER AND TRIMMER Patient returned call, informed that her Vitamin D level low. Recommended patient start 5000 international units Daily with fatty snack or meal. Medication sent to [facility] in [facility]. Patient has appointment with Dr Hurd today 04/17/2020 RER SCREEN MEASURER AND TRIMMER * Telephone Encounter - Love Khan MA - 04/17/2020 9:49 AM CST Left message for patient to return call to discuss lab results. RER SCREEN MEASURER AND TRIMMER * Telephone Encounter - Love Khan MA - 04/17/2020 9:46 AM CST ----- Message from Mimi Yu NP sent at 04/17/2020 9:27 AM SHEARER SCREEN MEASURER AND TRIMMER ----- Please call patient and let her know that her vitamin D level is low - supplement with vitamin D, 5000 iu daily with a fatty snack or meal. RER SCREEN MEASURER AND TRIMMER documented in this encounter Plan of Treatment Not on file documented as of this encounter Visit Diagnoses Not on filedocumented in this encounter Care Teams Fine Sander Relationship Specialty Start Date End Date Marc Marin MD [address] [place] [address] PCP - General 04/17/20 04/19/20 Dario Keenan MD [address] [address] Referring Physician Obstetrics and Gynecology 10/23/18 documented as of this encounter
--- OUTSIDE RECORDS SUMMARY | 2024-02-09 16:55 | XMS_ITS | Encounter Summary ---
Author Organization [facility] Address [address] [facility] [address] [place] [address] Care Team Providers Care Filling Technician Name Role Phone Dario Keenan MD Unavailable [phone] No, Physician Primary Care Provider [phone] Reason for Visit * Reason Comments Routine Visit Encounter Details Date Type Department Care Team (Late st Contact Info) Description 05/15/2020 10:00 AM CDT Routine [facility] [address] [facility] [address] [place] [address] Mimi Yu, REGIONAL AGRONOMIST 4 [facility] [address] [place] [address] Encounter for supervision of other normal in second trimester (Primary Dx); 20 weeks gestation of Social History Tobacco Use [...] Sign Reading Time Taken Comments Blood Pressure 118/80 05/15/2020 9:53 AM CDT Pulse - - Temperature - - Respiratory Rate - - Oxygen Saturation - - Inhaled Oxygen Concentration - - Weight 80.5 kg (177 lb 6.4 oz) 05/15/2020 9:53 A M CDT Height 170.2 cm (5' 7 ) 05/15/2020 9:53 AM CDT Body Mass Index 27.78 05/15/2020 9:53 AM CDT documented in this encounter Progress Notes * Mimi Yu NP - 05/15/2020 10:00 AM CDT Doing well, no c/os. S=D. Anatomy scan today Cosigned by Elias Hurd MD at 05/20/2020 12:00 AM CDT documented in this encounter Plan of Treatment Not on file documented as of this encounter Procedures Procedure Name Priority Date/Time Associated Diagnosis Comments POCT URINALYSIS DIPSTICK Routine 05/15/2020 9:41 AM CDT Encounter for supervision of other normal in second trimester 20 weeks gestation of documented in this encounter Results * POCT urinalysis dipstick (05/15/2020 9:41 AM CDT) Glucose, ur, POC Negative Negative mg/dL Protein, ur, POC Negative Negative Lot Number [id number] Urine 05/15/2020 9:41 AM CDT Mimi Yu NP POINT OF CARE TEST ORDERABLES Fi nal Result documented in this encounter Visit Diagnoses Diagnosis Encounter for supervision of other normal in second trimester- Primary 20 weeks gestation of documented in this encounter Care Teams Filling Technician Relationship Specialty Start Date End Date No, Physician PCP - General 04/20/20 06/29/23 Dario Keenan MD [address] [place] [address] Referring Physician Obstetrics and Gynecology 10/23/18 documented as of this encounter
--- OUTSIDE RECORDS SUMMARY | 2024-02-09 16:55 | XMS_ITS | Encounter Summary ---
Author Organization [facility] Medical [facility] Address [address] [place] [address] Care Team Providers Care Film Process Operator Name Role Phone Dario Keenan MD Unavailable [phone] Marc Marin MD Primary Care Provider [phone] Reason for Visit * Reason Comments Routine Visit Encounter Details Date Type Department Care Team (Late st Contact Info) Description 04/17/2020 11:15 AM SOLAR BUSINESS DEVELOPER Routine [facility] [address] [place] [address] [address] [place] [address] Elias Hurd MD [address] [place] [address] [address] [place], [place] [id number] Encounter for supervision of other normal in second trimester (Primary Dx); 16 weeks gestation of Social History Tobacco Use [...] Sign Reading Time Taken Comments Blood Pressure 126/78 04/17/2020 11:13 AM SOLAR BUSINESS DEVELOPER Pulse - - Temperature - - Respiratory Rate - - Oxygen Saturation - - Inhaled Oxygen Concentration - - Weight 77.6 kg (171 lb) 04/17/2020 11:13 AM SOLAR BUSINESS DEVELOPER Height 170.2 cm (5' 7 ) 04/17/2020 11:13 AM SOLAR BUSINESS DEVELOPER Body Mass Index 26.78 04/17/2020 11:13 AM SOLAR BUSINESS DEVELOPER documented in this encounter Ordered Prescriptions Prescription Sig Dispense Quantity Refills Last Filled Start Date End Date aspirin 81 mg enteric coated tablet Take 1 tablet (81 mg total) by mouth daily 30 tablet 4 04/17/2020 09/11/2020 documented in this encounter Progress Notes * Elias Hurd MD - 04/17/2020 11:15 AM CST No c/os. Nausea has resolved. Hx of gestational HTN. S=D. NOB labs reviewed: taking vit. D. Start ASA 81 mg daily until 37 weeks. R BUSINESS DEVELOPER documented in this encounter Plan of Treatment Not on file documented as of this encounter Procedures Procedure Name Priority Date/Time Associated Diagnosis Comments POCT URINALYSIS DIPSTICK Routine 04/17/2020 11:22 AM SOLAR BUSINESS DEVELOPER Encounter for supervision of other normal in second trimester 16 weeks gestation of documented in this encounter Results * POCT urinalysis dipstick (04/17/2020 11:22 AM SOLAR BUSINESS DEVELOPER) Glucose, ur, POC Negative Negative mg/dL Protein, ur, POC Negative Negative Lot Number [id number] Urine 04/17/2020 11:2 2 AM SOLAR BUSINESS DEVELOPER Elias Hurd MD POINT OF CARE TEST ORDERAB LES Final Result documented in this encounter Visit Diagnoses Diagnosis Encounter for supervision of other normal in second trimester- Primary 16 weeks gestation of documented in this encounter Care Teams Film Process Operator Relationship Specialty Start Date End Date Marc Marin MD [address] [place] [address] PCP - General 04/17/20 04/19/20 Dario Keenan MD [address] [place] [address] Referring Physician Obstetrics and Gynecology 10/23/18 documented as of this encounter
--- OUTSIDE RECORDS SUMMARY | 2024-02-09 16:55 | XMS_ITS | Encounter Summary ---
Author Organization [facility] Medical [facility] Address [address] [place] [address] Care Team Providers Care Ball Thread Machine Tender Name Role Phone Dario Keenan MD Unavailable [phone] No, Physician Primary Care Provider [phone] Reason for Visit * Reason Comments Routine Visit Encounter Details Date Type Department Care Team (Late st Contact Info) Description 06/26/2020 11:45 AM CDT Routine [facility] [address] [place] [address] [address] [place] [phone] Elias Hurd MD [address] [place] [address] [address] [place] [address] Encounter for supervision of other normal in second trimester (Primary Dx); 26 weeks gestation of Social History Tobacco Use [...] Sign Reading Time Taken Comments Blood Pressure 124/76 06/26/2020 11:49 AM CDT Pulse - - Temperature - - Respiratory Rate - - Oxygen Saturation - - Inhaled Oxygen Concentration - - Weight 83.5 kg (184 lb) 06/26/2020 11:49 AM CDT Height 170.2 cm (5' 7 ) 06/26/2020 11:49 AM CDT Body Mass Index 28.82 06/26/2020 11:49 AM CDT documented in this encounter Progress Notes * Elias Hurd MD - 06/26/2020 11:45 AM CDT No c/os. S = to < dates but is carrying baby side to side. Mild pelviectasis discussed, declines genetics. Plan repeat sono around 32 weeks. PTL and preE instructions. documented in this encounter Miscellaneous Notes * Addendum Note - Love Khan MA - 06/26/2020 11:45 AM CDTAddended by: LOVE KHAN on: 06/26/2020 12:32 PM Modules accepted: Orders documented in this encounter Plan of Treatment Not on file documented as of this encounter Procedures Procedure Name Priority Date/Time Associated Diagnosis Comments POCT URINALYSIS DIPSTICK Routine 06/26/2020 11:55 AM CDT Encounter for supervision of other normal in second trimester 26 weeks gestation of documented in this encounter Results * (ABNORMAL) Vitamin D 25 hydroxy (07/24/2020 11:25 AM CDT) Vitamin D 25-OH 25(L) 30 - 80 ng/mL DORI COPPOLA) Blood specimen (specimen) 07/24/2020 11:25 AM CDT 07/24/2020 1:21 PM CDT us Elias Hurd MD LAB BLOOD ORDERABLES Final Result DORI COPPOLA) 1 [facility] [place] [address] * RPR (07/24/2020 11:25 AM CDT) RPR Nonreactive Nonreactive DORI GAMA (ANTONY) Comment:Testing performed by : [facility], [address] [place]., [address] Blood specimen (specimen) 07/24/2020 11:25 AM CDT 07/24/2020 6:56 PM CDT Elias Hurd MD LAB MICROBIOLOGY - GENERAL ORDERABLES Final Result Performing Organization Address [facility] Co de Phone Number DORI GAMA (ANTONY) 1 [facility] [place] [address] * HSV 2 IgG Antibody Blood (07/24/2020 [...] last revised on 2016. Testing performed by: [facility], [address] [place] [address]., [address] Blood specimen (specimen) 07/24/2020 11:25 AM CDT 07/24/2020 3:34 PM CDT Elias Hurd MD LAB MICROBIOLOGY - GENERAL ORDERABLES Final Result Performing Organization Address City[facility] Co de Phone Number DORI GAMA (ANTONY) 1 [facility] [place] [address] * (ABNORMAL) HSV 1 IgG Antibody Blood [...] last revised on 2016. Testing performed by: [facility], [address] [place] [address]., [address] Blood specimen (specimen) 07/24/2020 11:25 AM CDT 07/24/2020 3:34 PM CDT Elias Hurd MD LAB MICROBIOLOGY - GENERAL ORDERABLES Final Result Performing Organization Address [facility] de Phone Number [facility] ([place]) 1 [place] [address] * HIV 1/2 Antibody plus p24 Antigen (07/24/2020 11:25 AM CDT) HIV 1/2 ab + p24 ag Nonreactive Nonreactive DORI GAMA ([place]IMBLE) Comment: Nonreactive for HIV-1 antigen and HIV-1/HIV-2 antibodies. No laboratory evidence of HIV infection. If acute HIV infection is suspected, consider testing for HIV-1 RNA. Testing performed by: [facility], [address] [place]., [address] Blood specimen (specimen) 07/24/2020 11:25 AM CDT 07/24/2020 3:34 PM CDT Elias Hurd MD LAB MICROBIOLOGY - GENERAL ORDERABLES Final Result Performing Organization Address [facility] de Phone Number [facility] ([place]) 1 [facility] [place] [address] * Glucose tolerance testing 50 gram gestational [...] Hurd MD LAB BLOOD ORDERABLES Final Result [facility] (ANTONY) 1 [facility] Department [place] [address] * (ABNORMAL) CBC with auto differential (07/24/2020 [...] LAB BLOOD ORDERABLES Final Result [facility] ([place]) 1 [facility] Department [place] [address] * (ABNORMAL) POCT urinalysis dipstick (06/26/2020 11:55 AM CDT) Glucose, ur, POC Negative Negative mg/dL Protein, ur, POC 1+(A) Negative Lot Number [id number] Urine 06/26/2020 11:5 5 AM CDT Elias Hurd MD POINT OF CARE TEST ORDERAB LES Final Result documented in this encounter Visit Diagnoses Diagnosis Encounter for supervision of other normal in second trimester- Primary 26 weeks gestation of documented in this encounter Care Teams Ball Thread Machine Tender Relationship Specialty Start Date End Date No, Physician PCP - General 04/20/20 06/29/23 Dario Keenan MD [address] [place] [address] Referring Physician Obstetrics and Gynecology 10/23/18 documented as of this encounter
--- OUTSIDE RECORDS SUMMARY | 2024-02-09 16:55 | XMS_ITS | Encounter Summary ---
Author Organization [facility] Address [address] [place] [address] Phone Care Team Providers Care Dining Host Name Role Phone No, Physician Primary Care Provider [phone] Reason for Visit * Consultation (Routine) - Closed Specialty Diagnoses / Procedures Referred By Contac t Referred To Contact Maternal and Medicine Diagnoses Supervision of high risk , unspecified, unspecified trimester Irina Monique MD Phone: tel: fax: [facility] (All Locations) Referral ID Status Reason Start Date Expiration Date V isits Requested Visits Authorized [id number] Closed Specialty Services Required 08/02/2018 02/11/2020 1 1 Encounter Details Date Type Department Care Team (Late st Contact Info) Description 09/10/2018 2:15 PM CDT Office Visit [facility] Obstetrics and Gynecology [address] [place] [address] Roselia Weiss MD [address] [facility] [phone] [place] [address] Supervision of high-risk , unspecified trimester (Primary Dx); Encounter for repeat ultrasound of pyelectasis in [place] , antepartum; Poor growth affecting management of mother in third trimester, single or unspecified fetus; Gestational hypertension, third trimester Social History Tobacco Use Types Packs/Day Years Used Date Smoking Tobacco: Never Assessed Comments Yes Sex and Gender Information Value Date Recorded Sex Assigned at Not on file Legal Sex Female 3:29 PM CDT Gender Identity Not on file Sexual Orientation Not on file documented as of this encounter Progress Notes * Roselia Weiss MD - 09/10/2018 2:15 PM CDT Images from the original note were not included. Maternal Medicine Consult Note Reason for Consult: pyelectasis, elevated blood pressure, possible growth restriction Requesting Provider: Dr. Keenan Dear Dr. Keenan, We had the pleasure of seeing your patient Jordyn Shields in our office today. As you know, she is a 23 y.o. at 34w3d here today for a consult regarding pyelectasis, elevated blood pressures, and suspected growth restriction. Today she is doing well, she denies headaches, right upper quadrant pain, epigastric pain or visionchanges. No contractions, leakage of fluid, or vaginal bleeding. Active movement. Past Medical History: denies Past Surgical History: denies OB History Para Term AB Living 1 SAB TAB Ectopic Multiple Live Births # Outcome Date GA Lbr Logan/2nd Weight Sex Delivery Anes PTL Lv 1 Current Medications: denies Family History: Denies a family history of defects including spina bifida, congenital heart defects, limb defects, or kidney defects. She denies a family history of genetic abnormalities including Down Syndrome, cognitive delays, or learning disabilities including autism spectrum disorders. She denies a family history of inherited disorders including cystic fibrosis, thalassemia, sickle cell disease, or muscular dystrophy. Allergies: Penicillin, amoxicillin, erythromycin (childhood allergies) Review of Systems Review of systems per HPI and otherwise all systems are negative Physical Exam BP 157/113, 153/111 General: NAD, well appearing 0} Ultrasound at our Diagnostic Center: Ultrasound 09/10/2018: 34w3d EFW 10%, UA PI elevated 97%, BPP 8/8 Please see formal US report. Assessment: Ms. Jordyn Shields is a 23 y.o. at 34w3d here today for a consult regarding: Problem List Circulatory Gestational hypertension, third trimester Overview Patient with BP of 157/113 and 153/111 [...] out preeclampsia with severe features. I also recommendadministering betamethasone. If she has further severe range blood pressures, would proceed with delivery given current GA>34 weeks. If mild blood pressures and otherwise normal labs, recommend weekly blood pressure check and labs with delivery no later than 37 weeks. Other Borderline IUGR and elevated UA Dopplers Overview The estimated weight on today's ultrasound plots at the 10th percentile. We discussed that this is borderline growth restriction. The UA Doppler PI was elevated. - I counseled the patientregarding the differential diagnosis for IUGR including wrong dating, constitutional, viral, aneuploidy, congenital anomalies, and placental insufficiency. We discussed the increased risk for IUFD with IUGR fetus. I recommend twice weekly testing and weekly UA Doppler assessment. We also reviewed delivery no later than 37 weeks given gestational HTN and US findings today. Encounter for repeat ultrasound of pyelectasis in [place] , antepartum Overview Mild left pyelctasis, otherwise normal anatomy US. Low risk aneuploidy screening. Resolved on ultrasound today. Supervision of high-risk , unspecified trimester - Primary Overview Co-management with Dr Pearl Magallon. If discharged and remains , recommend weekly UA Dopplersand blood pressure checks. Delivery no later than [address] Keenan. Thank you for involving the Maternal- Medicine practice in the care of this patient. Should you have any further questions or concerns, please do not hesitate to contact our office. Roselia Weiss MD MS Maternal Medicine documented in this encounter Plan of Treatment Not on file documented as of this encounter Visit Diagnoses Diagnosis Supervision of high-risk , unspecified trimester- Primary Encounter for repeat ultrasound of pyelectasis in [place] , antepartum Poor growth affecting management of mother in third trimester, single or unspecified fetus Gestational hypertension, third trimester documented in this encounter Orders Outpatient Referral Count Last Ordered Date Fir st Ordered Date AMB REFERRAL TO [facility] 1 08/20/2018 documented in this encounter Care Teams Dining Host Relationship Specialty Start Date End Date No, Physician PCP - General 07/27/18 04/16/20 documented as of this encounter
== END 2024-02-04 18:19 | disposition home or self-care (01) ==
PROVIDERS: Emergency Provider Nurse Practitioner Family
DX: I10 Essential (primary) hypertension (principal)
CPT/HCPCS: 99211; 99213; G0463

== ENCOUNTER 2024-05-29 16:14 | Emergency (ER) | payer OTHER, SELFPAY ==
--- NOTE | 2024-05-29 16:27 | ED_ITS ---
HPI - URI/Sore Throat General Chief Complaint: Upper Respiratory Infection Stated Complaint: throat pain History of Present Illness HPI Narrative: 28-year-old female presented for complaint throat pain. Onset 2 days. Says Neck glands feel swollen and reports painful swallow. Says she has not eaten much in 2 days due to pain. Two weeks ago patient had similar symptoms, tested negative for flu COVID and strep. Patient did complete 10 days of amoxicillin and a steroid. She says she felt better while taking the steroid but when she completed it the symptoms returned. denies cough, shortness of breath, wheezing, nausea, vomiting, fevers or lethargy. Scheduled with pcp in 2 days. Related Data Allergies Allergy/AdvReac Type Severity Reaction Status Date / Time Penicillins Allergy Severe Rash Verified 05/29/24 16:30 erythromycin base Allergy Unknown Unknown Verified 05/29/24 16:30 Review of Systems Review of Systems: CONSTITUTIONAL: Denies body aches, fever, chills, or sweats. EYES: Denies visual changes, redness, or discharge. ENT: reports throat pain Denies rhinorrhea, congestion, or otalgia. CARDIOVASCULAR: Denies chest pain, palpitations, or edema. RESPIRATORY: Denies dyspnea. GASTROINTESTINAL: Denies abdominal pain, nausea, vomiting, or diarrhea. SKIN: Denies rash MUSCULOSKELETAL: Denies back pain, joint pain, or myalgia. NEUROLOGIC: Denies headache PMFSH Past Medical History Medical History (Updated 05/29/24 @ 16:39 by Lori Ribera APRN) Hx of migraines Strep throat Surgical History Surgical History (Updated 06/26/23 @ 09:05 by Kelli Douglas CMA) Previous section xs 2 Social History Social History (Updated 06/26/23 @ 09:05 by Kelli Douglas CMA) Smoking status: Never smoker Alcohol intake: current Alcohol use details: rare Substance use: never Substance use type: does not use Do You Feel Safe in your Home?: Yes Lack of Transportation: No Lack of Food: Never True Current Housing: I Have Housing Concerned About Future Housing: No Difficulty Paying Gas/Electric Bills: No Difficulty Paying for Meds: No Currently Unemployed: No Education: High School Diploma/GED Difficulty w/ Childcare or Family Care: No Living arrangements: with family Occupation/Education: occupation Gender identity (if verbalized by the patient): Female Sexual Orientation (if Verbalized by the Patient): Straight or Heterosexual Exam Narrative: GENERAL: well-appearing, no acute distress. EYES: conjunctivae clear ENT: Mucous membranes moist. TM pearly carranza with normal light reflex bilaterally; no tragal tenderness. Oropharynx mildly erythematous with few scattered vesicles to soft palate. Tonsils absent. No drooling, no hoarseness, no trismus, uvula midline. No tripod positioning, hot potato voice, or soft palate swelling. NECK: Supple. No lymphadenopathy CHEST: Clear to auscultation, breath sounds equal. No respiratory distress, speaks in full sentences. HEART: Regular rate and rhythm. SKIN: Warm, dry, no rash. NEURO: Alert and oriented x3. Course Course Emergency Course: Patient is aware of diagnosis, understands and agrees to treatment plan. Anticipatory guidance given. Patient agrees to follow-up as directed and is aware of reasons to seek care at the emergency department. Portions of this record may have been created with voice recognition software Level of Care: Express Care Visit Vital Signs Vital signs: Vital Signs Temperature 97.9 F 05/29/24 16:33 Pulse Rate 91 05/29/24 16:33 Respiratory Rate 20 05/29/24 16:33 Blood Pressure 157/111 H 05/29/24 16:33 Pulse Oximetry 97 05/29/24 16:33 Oxygen Delivery Room Air 05/29/24 16:33 Temperature 97.9 F 05/29/24 16:33 Pulse Rate 91 05/29/24 16:33 Respiratory Rate 20 05/29/24 16:33 Blood Pressure 157/111 H 05/29/24 16:33 Pulse Oximetry 97 05/29/24 16:33 Oxygen Delivery Room Air 05/29/24 16:33 MDM - URI/Sore Throat MDM Narrative Medical decision making narrative: Discussed physical exam findings. Shared decision making declined viral or strep testing. Advise supportive treatments. Patient is appropriate for outpatient treatment and follow-up as scheduled this week. Differential Diagnosis Differential diagnosis: Likely upper respiratory infection, viral infection, pharyngitis and other (GERD, esophagitis, esophageal stricture, stomatitis, oral candidiasis) Discharge Plan Discharge Clinical Impression: Throat pain Patient Disposition: Home Condition: Stable Instructions: Antibiotic Form, Pharyngitis (ED) Additional Instructions: Take steroid as directed, with food Tylenol every 8 hours as needed for pain/fever Soft foods, cool liquids, warm tea. Gargle with warm saltwater twice a day. Chloraseptic spray and throat lozenges. Rest and stay hydrated. --Follow up with your PCP --Go to the ER immediately if you cannot swallow your saliva, trouble breathing/wheezing, throat swelling, pain is persistent and severe Patient Language: Portuguese Prescriptions: New methylprednisolone [Medrol (Alexis)] 4 mg tablets,dose pack See Rx Instructions .ROUTE .COMPLEX Qty: 21 0RF Rx Instructions: orally per package directions Follow-up/Referrals: MARGARITA,Cece ESTEBAN. [Primary Care Provider] -
[2024-05-29 16:33] VITALS: BP 157/111; PULSE 91; RESP 20; TEMP 36.6; O2SAT 97
--- OUTSIDE RECORDS SUMMARY | 2024-05-29 17:07 | XMS_ITS | Clinical Summary ---
Author Organization [facility] Address [facility] [place] [address] Care Team Providers Care Power Barker Operator Name Role Phone Dario Keenan MD Unavailable [phone] Marc Mrain MD Primary Care Provider [phone] Allergies Active Allergy Reactions Criticality Noted Date Comments Amoxicillin Rash Medium 03/13/2020 Azithromycin Rash Medium 03/13/2020 Penicillins Rash Medium 03/13/2020 Medications fluconazole (DIFLUCAN) 150 mg tablet Take 1 tablet PO now and repeat in 3 days. 2 tablet 2 Active Additional Information Patient not taking.Reported on 05/10/2024 rizatriptan (MAXALT) 10 mg tabletIndicatio ns:Migraine Take 1 tablet (10 mg total) by mouth once as needed for migraine May repeat in 2 hours if unresolved. Do not exceed 30 mg in 24 hours. 9 tablet 4 06/30/19 25 Active Additional Information Patient not taking.Reported on 05/10/2024 clindamycin (CLEOCIN) 300 mg capsuleIndicati ons:Acute non-recurrent sinusitis, unspecified location,Pharyn gitis, unspecified etiology Take 1 capsule (300 mg total) by mouth 3 (three) times a day for 10 days 30 capsule 5 05/21/19 25 predniSONE (DELTASONE) 20 mg tabletIndicatio ns:Pharyngitis, unspecified etiology Take 2 tablets (40 mg) by mouth daily for 5 days 10 tablet 5 05/16/19 25 Active Problems Problem Noted Date Diagnosed Date [...] checks. Delivery no later than 37 weeks. Encounters Date Type Department Care Team Description 05/12/2024 Results Follow-Up [facility] at [address] [place] [address] Aziza Rios NP 05/10/2024 11:18 PM CDT - 05/10/2024 11:59 PM CDT Hospital Encounter [address] [address] Sore throat Discharge Disposition: Discharge to home or self care 05/10/2024 6:15 PM CDT Office Visit [facility] at [address] [place] [address] Gloria Vickers NP Sore throat (Primary Dx); Acute non-recurrent sinusitis, unspecified location; Pharyngitis, unspecified etiology from Last 3 Months Immunizations Immunization Administration Dates Next Due Tdap 07/24/2020 Surgical [...] ranv Spinal N Livin g 8 9 WIETE R,BOY Raffy Duffy MD Delivery Location:This [facility] ([facility] PROCEDURE) Last Filed Vital Signs Vital Sign Reading Time Taken Comments Blood Pressure 140/90 05/10/2024 6:16 PM CDT Pulse 88 05/10/2024 6:16 PM CDT Temperature 36.4 C (97.6 F) 05/10/2024 6:16 PM CDT Respiratory Rate 17 05/10/2024 6:16 PM CDT Oxygen Saturation 98% 05/10/2024 6:16 PM CDT Inhaled Oxygen Concentration - - Weight 86.6 kg (191 lb) 05/10/2024 6:16 PM CDT Height 170.2 cm (5' 7 ) 05/10/2024 6:16 PM CDT Body Mass Index 29.91 05/10/2024 6:16 PM CDT Plan of Treatment Health Maintenance Due Date Last Done Comments Depression Screening 1997 Varicella Vaccines (1 of 2 - 13+ 2-dose series) 2010 HPV Vaccines (1 - 3-dose series) 2012 Regular Well Visit/Exam 18-64 07/02/2015 Cervical Cancer Screening 03/13/2021 03/13/2020 Influenza Vaccine (#1) 2023 DTaP/Tdap/Td Vaccine (7 - Td or Tdap) 07/24/2030 07/24/2020, 08/25/2018, 12/28/1998, Additional history exists Hepatitis B Screening Completed 1997 , 1997, 1997 Hepatitis C Screening Completed 04/16/2020 Pneumococcal vaccine <65 Aged Out No longer eligible based on patient's age to complete this topic Procedures Procedure Name Priority Date/Time Associated Diagnosis Comments POC INFLUENZA A/B, COVID-19 ANTIGEN Routine 05/10/2024 6:43 PM CDT Sore throat THROAT CULTURE Routine 05/10/2024 6:43 PM CDT Sore throat POCT RAPID STREP Routine 05/10/2024 6:28 PM CDT Sore throat HEPATITIS C ANTIBODY Routine 04/16/2020 1:25 PM CLASSIFICATIONS OFFICER CC/CM Encounter for supervision of other normal in first trimester PAP WITH REFLEX TO HIGH RISK HPV Routine 03/13/2020 4:24 PM CLASSIFICATIONS OFFICER CC/CM Encounter for supervision of other normal in first trimester from Last 3 Months or Most Recently Relevant to Health Maintenance Results * POC Influenza A/B, COVID-19 antigen (05/10/2024 6:43 PM CDT) Influenza A Ag, POC Negative Negative [facility] Influenza B Ag, POC Negative Negative [facility] COVID-19 Ag POC Presumptive Negative Presumptive Negative, Invalid [facility] Nasal 05/10/2024 6:43 PM CDT Gloria Vickers NP POINT OF CARE TEST ORDERAB LES Final Result [facility] [address] [place] [address] * Throat culture Throat (05/10/2024 6:43 PM CDT) Report Final Report: No growth of pathogens. Comment:Testing performed by : [facility], [address] [facility], [place]., [address] Throat 05/10/2024 6:43 PM CDT 05/11/2024 5:46 AM CDT Narrative DORI CH - 05/12/2024 5:38 AM CDT Testing performed by [facility] Microbiology Laboratory ([phone]). Gloria Vickers NP LAB MICROBIOLOGY - GENERAL ORDERABLES Final Result Performing Organization Address [facility]/ZIP Co de Phone Number DORI [address] Department [place] [address] * POCT rapid strep A (05/10/2024 6:28 PM CDT) Pathologist [facility] Rapid Strep A, POC Negative Negative Swab 05/10/2024 6:28 PM CDT Gloria Vickers NP POINT OF CARE TEST ORDERAB LES Final Result * Hepatitis C antibody (04/16/2020 1:25 PM CLASSIFICATIONS OFFICER CC/CM) [facility] Hep C Ab Nonreactive Nonreactive DORI GAMA ([place]) Comment: Interpretive Data Nonreactive: Antibodies to HCV not detected. Does NOT exclude the possibility of recent exposure to HCV. Equivocal: Equivocal for HCV antibodies. Supplemental molecular testing will be automatically performed to determine infection status in accordance with current CDC screening recommendations. Reactive: Positive for HCV antibodies. This may represent current or past HCV infection. Supplemental molecular testing will be automatically performed to determine current infection status in accordance with current CDC screening recommendations. Interpretive data was last revised on 2019. Testing performed by: [facility], [address] [place] [address]., [id number] Blood specimen (specimen) 04/16/2020 1:25 PM CLASSIFICATIONS OFFICER CC/CM 04/17/2020 9:32 AM CLASSIFICATIONS OFFICER CC/CM Mimi Yu NP LAB MICROBIOLOGY - GENERAL ORDER VANDANA Edited Result - Final DORI LANETTE ([place]) [address] [facility] Department [place] [address] * Pap with reflex to High Risk HPV (03/13/2020 4:24 PM CLASSIFICATIONS OFFICER CC/CM) [facility] Clinical indication Comment [facility] - 01 Comment:NEGATIVE FOR INTRAEP ITHELIAL LESION OR MALIGNANCY. Specimen adequacy: Comment [facility] - 01 Comment: Satisfactory for evaluation. Endocervical and/or squamous metaplastic cells (endocervical component) are present. Clinician provided ICD10 Comment [facility] - 01 Comment:Z34.81 Performed by Comment [facility] - 01 Comment:Cathleen Ramirez, Cyto technologist . . [facility] - 01 Note: Comment [facility] - 01 Comment: The Pap smear is a screening test designed to aid in the detection of premalignant and malignant conditions of the uterine cervix. It is not a diagnostic procedure and should not be used as the sole means of detecting cervical cancer. Both false-positive and false-negative reports do occur. Test methodology Comment [facility] - 01 Comment: This liquid based ThinPrep(R) pap test was screened with the use of an image guided system. . Comment [facility] - 01 Comment: The HPV DNA reflex criteria were not met with this specimen result therefore, no HPV testing was performed. Swab 03/13/2020 4:24 PM CLASSIFICATIONS OFFICER CC/CM 03/13/2020 Narrative [facility] - 03/17/2020 8:13 AM CLASSIFICATIONS OFFICER CC/CM Performed at: - [facility] [id number] Baggage Clerk: Nasima Evans MD, Phone: [phone] Specimen Comment: [id number] Specimen Comment: No. of containers..01 ThinPrep Vial Mimi Yu NP LAB CYTOLOGY ORDERABLES Final Re sult [facility] - from Last 3 Months or Most Recently Relevant to Health Maintenance Insurance [facility] CHOICE PLUS [facility] HMO/PPO Address: [address] [address] [place] [address] [facility] CHOICE PLUS [facility] HMO/PPO Address: [address] [address] [place] [address] [place] [address] [employer] COV[employer] HMO/POS Advance Directives For more information, please contact: [phone] * Full Code (Latest Code Status on File) Date Activated Date Inactivated Comments 09/12/2020 4:41 PM 09/15/2020 4:11 AM * Full Code Date Activated Date Inactivated Comments 09/12/2020 10:57 AM 09/12/2020 4:41 PM Full CPR in case of cardiopulmonary arrest Care Teams Power Barker Operator Relationship Specialty Start Date End Date Marc Marin MD [address] [address] PCP - General Family Practice 06/30/23 Dario Keenan MD [address] [place] [address] Referring Physician Obstetrics and Gynecology 10/23/18
--- OUTSIDE RECORDS SUMMARY | 2024-05-29 17:07 | XMS_ITS | Referral Summary ---
Author Organization [facility] Address [address] [place] [address] Care Team Providers Care Balling Machine Operator Name Role Phone Dario Keenan MD Unavailable [phone] Marc Marin MD Primary Care Provider Encounters Date Type Department Care Team Description 05/12/2024 Results Follow-Up [facility] at [place] [address] [place] [phone] Aziza Rios NP 05/10/2024 11:18 PM CDT - 05/10/2024 11:59 PM CDT Hospital Encounter [address] [address] Sore throat Discharge Disposition: Discharge to home or self care 05/10/2024 6:15 PM CDT Office Visit [facility] at [place] [address] [place] [phone] Gloria Vickers NP Sore throat (Primary Dx); Acute non-recurrent sinusitis, unspecified location; Pharyngitis, unspecified etiology from Last 3 Months Allergies Active Allergy Reactions Criticality Noted Date Comments Amoxicillin Rash Medium 03/13/2020 Azithromycin Rash Medium 03/13/2020 Penicillins Rash Medium 03/13/2020 Medications fluconazole (DIFLUCAN) 150 mg tablet Take 1 tablet PO now and repeat in 3 days. 2 tablet Active Additional Information Patient not taking.Reported on [...] Delivery no later than 37 weeks. Immunizations Immunization Administration Dates Next Due Tdap 07/24/2020 Social [...] 05/10/2024 6:16 PM CDT Plan of Treatment Not on file Procedures Procedure Name Priority Date/Time Associated Diagnosis Comments POC INFLUENZA A/B, COVID-19 ANTIGEN Routine 05/10/2024 6:43 PM CDT Sore throat THROAT CULTURE Routine 05/10/2024 6:43 PM CDT Sore throat POCT RAPID STREP Routine 05/10/2024 6:28 PM CDT Sore throat HEPATITIS C ANTIBODY Routine 04/16/2020 1:25 PM COTTON DISPATCHER Encounter for supervision of other normal in first trimester PAP WITH REFLEX TO HIGH RISK HPV Routine 03/13/2020 4:24 PM COTTON DISPATCHER Encounter for supervision of other normal in first trimester from Last 3 Months or Most Recently Relevant to Health Maintenance Results * POC Influenza A/B, COVID-19 antigen (05/10/2024 6:43 PM CDT) Pathologist [facility] Influenza A Ag, POC Negative Negative [facility] Influenza B Ag, POC Negative Negative [facility] COVID-19 Ag POC Presumptive Negative Presumptive Negative, Invalid [facility] Nasal 05/10/2024 6:43 PM CDT Gloria Vickers NP POINT OF CARE TEST ORDERAB LES Final Result [facility] [address] [place] [address], [facility] * Throat culture Throat (05/10/2024 6:43 PM CDT) Report Final Report: No growth of pathogens. Comment:Testing performed by : [facility], [address] [place]., [address] Throat 05/10/2024 6:43 PM CDT 05/11/2024 5:46 AM CDT Narrative DORI - 05/12/2024 5:38 AM CDT Testing performed by [facility] Microbiology Laboratory ([phone]). Gloria Vickers NP LAB MICROBIOLOGY - GENERAL ORDERABLES Final Result [address] Department [place] [address] * POCT rapid strep A (05/10/2024 6:28 PM CDT) [facility] Rapid Strep A, POC Negative Negative Swab 05/10/2024 6:28 PM CDT Gloria Vickers NP POINT OF CARE TEST ORDERAB LES Final Result * Hepatitis C antibody (04/16/2020 1:25 PM COTTON DISPATCHER) [facility] Hep C Ab Nonreactive Nonreactive DORI GAMA [...] last revised on 2019. Testing performed by: [facility], [address] [place] [address], [place]., [address] Blood specimen (specimen) 04/16/2020 1:25 PM COTTON DISPATCHER 04/17/2020 9:32 AM COTTON DISPATCHER us Mimi Yu NP LAB MICROBIOLOGY - GENERAL ORDER VANDANA Edited Result - Final DORI GAMA ([place]) [address] [facility] Department of Laboratories [place] [id number] * Pap with reflex to High Risk HPV (03/13/2020 4:24 PM COTTON DISPATCHER) Clinical indication Comment [facility] - 01 Comment:NEGATIVE [...] testing was performed. Swab 03/13/2020 4:24 PM COTTON DISPATCHER 03/13/2020 Narrative [facility] - 03/17/2020 8:13 AM COTTON DISPATCHER Performed at: - [facility] [id number] [place]: Nasima Evans MD, Phone: [phone] Specimen Comment: [id number] Specimen Comment: No. of containers..01 ThinPrep Vial us Mimi Yu NP LAB CYTOLOGY ORDERABLES Final Re sult [facility] - from Last 3 Months or Most Recently Relevant to Health Maintenance Insurance [facility] CHOICE PLUS [facility] CHOICE PLUS [employer] COVENTRY HMO/POS Advance Directives For more information, please contact: [phone] * Full Code (Latest Code Status on File) Date Activated Date Inactivated Comments 09/12/2020 4:41 PM 09/15/2020 4:11 AM * Full Code Date Activated Date Inactivated Comments 09/12/2020 10:57 AM 09/12/2020 4:41 PM Full CPR in case of cardiopulmonary arrest Care Teams Balling Machine Operator Relationship Specialty Start Date End Date Marc Marin MD [address] [place] [address] PCP - General Family Practice 06/30/23 Dario Keenan MD [address] [place] [address] Referring Physician Obstetrics and Gynecology 10/23/18
== END 2024-05-29 16:53 | disposition home or self-care (01) ==
PROVIDERS: Emergency Provider Nurse Practitioner Family; PCP Family Medicine
DX: R07.0 Pain in throat (principal)
CPT/HCPCS: 99213; G0463